=== PATIENT | female | born 1955 | race Caucasian/White ===

== ENCOUNTER 2023-06-03 07:50 | Outpatient (OUT) | payer OTHER, SELFPAY | END 2023-06-03 07:55 | disposition home or self-care (01) | PROVIDERS: Visit Provider Internal Medicine Cardiovascular Disease | DX: I11.9 Hypertensive heart disease without heart failure (principal) ==

== ENCOUNTER 2023-08-26 10:25 | Outpatient (OUT) | payer OTHER, SELFPAY ==
--- NOTE | 2023-08-26 10:56 | RESP.RT ---
see scanned chart
--- NOTE | 2023-08-26 12:36 | W.PM.PROCNOT ---
Date of procedure: 08/26/23 Procedure: 6-Minute Walk Test Indication: Chronic hypoxic respiratory failure Baseline data: Initial blood pressure: 130/80 Initial heart rate: 57 Initial oxygenation: SpO2 91% on room air at rest. Initial Carlos score: 1 MMRC: 3 Procedure: A 6-Minute Walk Test was initiated according to standard protocol. The patient ambulated for a total of 6 minutes. The patient desaturated to 87% on room air after ambulating only 30 seconds. O2 flow was eventually titrated up to 6L/min and despite this flow, SpO2 dropped to 83%. The maximum Carlos score was 7. Symptoms reported: Dyspnea. During recovery, blood pressure was 129/89 with a heart rate of 56. SpO2 was 100% on 6L/min, with Carlos score 2. Total number of stops: 5, due to dyspnea and need to titrate O2. Total distance walked was 61m, which was 62% of predicted walk distance. Impressions: Ambulatory desaturations requiring high O2 flows, and even then adequate oxygenation was not achieved on 6L/min with SpO2 dropping to 83%. No resting desaturations noted. Recommendations: No supplemental O2 required at rest. 6L/min O2 with ambulation, which does not appear sufficient with activity lasting over 2-3 minutes. Patient required reminding to breath through nose, not mouth, which may help some. Clinical correlation required. Surgeon: Erasto Heard
== END 2023-08-26 10:26 | disposition home or self-care (01) ==
LOC: CARD 10:25
PROVIDERS: Visit Provider Internal Medicine
DX: J96.11 Chronic respiratory failure with hypoxia (principal)
CPT/HCPCS: 94618

== ENCOUNTER 2024-01-07 19:19 | Outpatient (OUT) | payer OTHER, SELFPAY ==
--- OUTSIDE RECORDS SUMMARY | 2024-01-07 19:32 | XMS_ITS | CCD ---
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 Name Role Phone NON STAFF Primary Care Provider UnavailDO Jay Longoria Admit Provider [phone] MD Rafat Vences Attending Provider JESSY PATEL Primary Care Physician DEEPA COTA Attending Unavailable DEEPA COTA Consulting Unavailable DEEPA COTA Admitting Unavailable [facility] Primary Care Unavailable DR RAMY MIXON Consulting Unavailable LIS QUINONEZ Attending Unavailable MATTHEWE ., LIS M Admitting Unavailable [facility] Primary Care Unavailable LUE ., LIS M Consulting Unavailable MARIA ESTHER, RILEY Attending Unavailable RILEY MAYO Consulting Unavailable RILEY MAYO Admitting Unavailable RUMSCHLAG, JESSY Primary Care Unavailable Lue, Lis M. Attending Unavailable RUMSCHLAG, JESSY Primary Care Unavailable Lue, Lis M. Attending Unavailable RUMSCHLAG, JESSY Primary Care Unavailable Lue, Lis M. Attending Unavailable RUMSCHLAG, JESSY Primary Care Unavailable RUMSCHLAG, JESSY Primary Care Unavailable Matthewe, Lis MCody Attending Unavailable Rafat Vences Attending Unavailable NON STAFF Primary Care Unavailable Jay Loera Admitting UnavailCONNIE Herrera Attending Unavailable LATRELL ARIZA Attending Unavailable CONNIE DESIR Attending Unavailable LATRELL ARIZA Attending Unavailable MATHIEU KENT Referring Unavailable [facility] Primary Care Unava ilable MATHIEU KENT Referring Unavailable SERVICES, [facility] Unava ilable SERVICES, [facility] Unava ilable DEEPA RIVER Attending Unavailable LARON NEVAREZ Consulting Unavailable NOLVIA GARCIA Admitting Unavailable PRIETO NG Attending Unavailable PRIETO NG Referring Unavailable SERVICES, [facility] Unava ilable PRIETO NG Attending Unavailable PRIETO NG Referring Unavailable SERVICES, [facility] Unava ilable JESSY PATEL Referring Unavailable SERVICES, [facility] Unava ilable SERVICES, [facility] Unava ilable ROSALINO MARRERO Attending Unavailable DIANASHELIA Hoffmann Admitting Unavailable JANESROSALINO HOPE Attending Unavailable ROSALINO MARRERO Referring Unavailable SERVICES, [facility] Unava ilable JACQUELIN GOLDMAN Attending Unavailable JACQUELIN GOLDMAN Referring Unavailable SERVICES, [facility] Unava ilable Services, [facility] Provider Allergies Allergy Classification Reported Allergen(s) Allergy Type Date of Onset Reaction(s) Facility (7 sources) Meperidine; Translations: [Meperidine] Drug Allergy 7 [facility] (disorder) [facility] (5 sources) Iodinated Contrast Media; Translations: [Iodinated Contrast Media] Allergy to substance 7 [facility] (3 sources) Contrast media; Translations: [Contrast Dye] Drug allergy Weal (disorder) [facility] (1 source) Meperidine; Translations: [Demerol] Drug Allergy [facility] Repository (3 sources) Contrast media; Translations: [DYE] Propensity to adverse reactions to drug (disorder) 8 [facility] Repository (2 sources) Meperidine; Translations: [MEPERIDINE HCL] Drug Allergy 8 [facility] Repository Medications Current Medications Medication Drug Class(es) Dates Sig (Normalized) Sig (Original) Albuterol (5 sources) beta2-Adrenergic Agonist Start: 06-06-2022 albuterol Refills(s) 0 Start Date: 8/10/22 Status: Ordered Start: 01-19-2022 take 90 ug by inhala tion every four hours Albuterol Sulfate Active 90 MCG INHALATION Q4H January 19, 2022 4:52am take 1.25 mg by inha lation every six hours as needed for wheezing albuterol (ACCUNEB) 1.25 mg/3 mL nebulizer solution Inhale 3 mL (1.25 mg total) by nebulization every 6 (six) hours as needed for wheezing. 0 Active take 2 puff(s) by in halation every six hours as needed for wheezing albuterol (PROVENTIL HFA;VENTOLIN HFA) 90 mcg/actuation inhaler Inhale 2 puffs every 6 (six) hours as needed for wheezing. 0 Active apixaban 5 mg oral tablet (1 source) Factor Xa Inhibitor Start: 02-04-2023 take 1 tablet by mouth in the morning, then take 1 tablet by mouth at bedtime apixaban (ELIQUIS) 5 mg tablet Take 1 tablet (5 mg total) by mouth in the morning and 1 tablet (5 mg total) before bedtime. 0 02/04/2023 Active 60 actuat budesonide 0.08 mg/actuat / formoterol fumarate 0.0045 mg/actuat metered dose inhaler (1 source) Corticosteroid, beta2-Adrenergic Agonist Start: 02-02-2021 SYMBICORT 80-4.5 mcg/actuation inhaler Inhale 2 puffs as needed. 0 02/02/2021 Active calcium carbonate 1250 mg / cholecalciferol 200 unt oral tablet (1 source) Vitamin D take 1 tablet by mouth once in the morning calcium carbonate-vitam in D3 (OSCAL 500 + D) 500 mg(1,250mg) -200 units per tablet Take 1 tablet by mouth in the morning and 1 tablet in the evening. Take with meals. 0 Active Calcium Carbonate / vitamin D3 (1 source) Start: 01-19-2022 Calcium Carbonate-Vitam in D3 Active TAB TABLET January 19, 2022 4:52am cephalexin 500 mg oral capsule (1 source) Cephalosporin Antibacterial Start: 06-06-2022 Keflex 500 mg Cap See Instructions, Take 1 tablet 1 day prior to procedure, and then 1 tab day of procedure after procedure, # 2 tab(s), Refills(s) 0, Pharmacy: [facility] [id number], 153, cm, 06/06/22 9:28:00 EDT, Height/Length Dosing, 157, kg, 06/06/22 9:28:00 EDT... Start Date: 06/06/22 Status: Ordered Furosemide (5 sources) Loop Diuretic Start: 06-06-2022 furosemide Daily, Refills(s) 0 Start Date: 06/06/22 Status: Ordered Start: 01-20-2022 take 1 tablet by david th twice daily Furosemide (Lasix) 40 mg tablet Active 40 MG PO Twice daily 60 January 20, 2022 2:35pm Start: 01-19-2022 End: 01-20-2022 take 40 mg by mouth once daily Furosemide Discontinued 40 MG PO Daily January 19, 2022 4:52am January 20, 2022 2:36pm Start: 10-19-2021 take 1 tablet by david th once daily furosemide (LASIX) 40 mg tablet Indications: Pulmonary hypertension ([facility]) Take 1 tablet (40 mg total) by mouth daily. 90 tablet 3 10/19/2021 Active Lisinopril (4 sources) Angiotensin Converting Enzyme Inhibitor Start: 06-06-2022 lisinopril Oral, Carmen ly, Refills(s) 0 Start Date: 06/06/22 Status: Ordered Start: 03-20-2021 take 2.5 mg by mouth once kurt y Lisinopril Active 2.5 MG PO Daily January 19, 2022 4:52am metFORMIN (4 sources) Biguanide Start: 06-06-2022 metformin Oral , Refills(s) 0 Start Date: 06/06/22 Status: Ordered Start: 01-19-2022 take 1000 mg by mout h twice daily at mealtime Metformin Active 1000 MG PO Twice daily with meals January 19, 2022 4:52am metFORMIN (GLUCO PHAGE) 850 mg tablet Take 1,000 mg by mouth in the morning and 1,000 mg in the evening. Take with meals. 0 Active 24 hr metoprolol succinate 50 mg extended release oral tablet (4 sources) beta-Adrenergic Jessica Start: 02-19-2023 take 1 tablet by mouth once daily in the morning, then take 1 tablet by mouth once daily at bedtime metoprolol succinate XL (TOPROL XL) 50 mg 24 hr tablet Indications: Essential hypertension , Paroxysmal atrial fibrillation (CMS-HCC) , Localized edema , Shortness of breath TAKE ONE TABLET BY MOUTH EVERY MORNING AND TAKE ONE TABLET BY MOUTH EVERY NIGHT BEFORE BEDTIME 60 tablet 1 02/19/2023 Active Start: 06-06-2022 metoprolol Ref ills(s) 0 Start Date: 06/06/22 Status: Ordered Start: 01-19-2022 take 50 mg by mouth once daily Metoprolol Succinate Active 50 MG PO Daily January 19, 2022 4:52am nystatin 100 unt/mg topical powder (1 source) Polyene Antifungal Start: 05-18-2022 nystatin (MYCOSTATIN) powder Apply 1 application topically in the morning and 1 application before bedtime. Apply under breasts. 30 g 0 05/18/2022 Active ondansetron 4 mg disintegrating oral tablet (1 source) Serotonin-3 Receptor Antagonist Start: 12-07-2022 take 1 tablet by mouth every eight hours as needed for nausea ondansetron ODT (ZOFRAN ODT) 4 mg disintegrating tablet Dissolve 1 tablet (4 mg total) on tongue every 8 (eight) hours as needed for nausea for up to 10 doses. 10 tablet 0 12/07/2022 Active Xarelto (3 sources) Factor Xa Inhibitor Start: 06-06-2022 Xarelto Oral, Refills(s) 0 Start Date: 06/06/22 Status: Ordered Start: 01-19-2022 take 1 tablet by david th at bedtime Rivaroxaban (Xarelto) 20 mg tablet Active 20 MG PO Bedtime January 19, 2022 4:52am Spironolactone (4 sources) Aldosterone Antagonist Start: 06-06-2022 spirono lactone Oral, Refills(s) 0 Start Date: 06/06/22 Status: Ordered Start: 03-28-2022 take 1 tablet by david th in the morning spironolactone (ALDACTONE) 25 mg tablet Take 1 tablet (25 mg total) by mouth in the morning. 0 03/28/2022 Active Start: 01-19-2022 take 25 mg by mouth once daily Spironolactone Active 25 MG PO Daily January 19, 2022 4:52am triamcinolone acetonide 0.25 mg/ml topical cream (1 source) Corticosteroid triamcinolone (K ENALOG) 0.025 % cream Apply 1 Application topically 2 (two) times a day as needed for irritation. psoriasis 0 Active Problems Active Problems Problem Classification Problem Date Documented Da te Episodic/Chronic Asthma (1 source) Asthma; Translations: [Unspecified asthma, uncomplicated] 06-03-2018 Chronic Cancer of cervix (1 source) Malignant tumor of cervix; Translations: [Malignant neoplasm of cervix uteri, unspecified] 06-03-2018 Chronic Cancer of cervix (1 source) History of malignant neoplasm of cervix; Translations: [Personal history of malignant neoplasm of cervix uteri] 06-03-2018 Episodic Cardiac dysrhythmias (9 sources) Paroxysmal atrial fibrillation; Translations: [Unspecified atrial fibrillation] Onset: 06-04-2018 Chronic Chronic obstructive pulmonary disease and bronchiectasis (4 sources) Chronic obstructive pulmonary disease, unspecified; Translations: [Chronic obstructive pulmonary disease with (acute) exacerbation] Onset: 01-18-2022 12-12-2023 Chronic Conditions associated with dizziness or vertigo (3 sources) Dizziness and giddiness; Translations: [Dizziness] Onset: 12-12-2023 12-12-2023 Episodic Congestive heart failure; nonhypertensive (6 sources) Acute on chronic diastolic heart failure; Translations: [Acute on chronic diastolic (congestive) heart failure] Onset: 01-18-2022 01-19-2022 Chronic Diabetes mellitus without complication (1 source) Diabetes mellitus; Translations: [Type 2 diabetes mellitus without complications] 11-07-2023 Chronic Essential hypertension (3 sources) Essential (primary) hypertension; Translations: [Essential hypertension] Onset: 10-24-2022 Chronic Genitourinary symptoms and ill-defined conditions (4 sources) Stress incontinence (female) (male); Translations: [Genuine stress incontinence] Onset: 06-06-2022 Chronic Genitourinary symptoms and ill-defined conditions (7 sources) Blood in urine; Translations: [Gross hematuria] Onset: 06-06-2022 Episodic Hypertension with complications and secondary hypertension (2 sources) Hypertensive heart disease without heart failure; Translations: [Hypertensive heart disease without heart failure] Onset: 05-21-2023 Chronic Nonmalignant breast conditions (1 source) Mastodynia; Translations: [Mastodynia] Onset: 12-31-2023 Episodic Other aftercare (1 source) Long-term current use of anticoagulant; Translations: [residential (current) use of anticoagulants] Onset: 06-06-2022 Episodic Other inflammatory condition of skin (1 source) Psoriasis; Translations: [Psoriasis, unspecified] 06-03-2018 Chronic Other lower respiratory disease (1 source) Shortness of breath; Translations: [Shortness of breath] Onset: 11-07-2023 Episodic Other lower respiratory disease (1 source) Shortness of breath Onset: 11-07-2023 Episodic Other nutritional; endocrine; and metabolic disorders (1 source) Body mass index 40+ - severely obese; Translations: [Morbid (severe) obesity due to excess calories] 01-19-2022 Chronic Other nutritional; endocrine; and metabolic disorders (2 sources) Morbid (severe) obesity due to excess calories; Translations: [Morbid obesity] Onset: 01-18-2022 Chronic Other nutritional; endocrine; and metabolic disorders (1 source) Body mass index (BMI) 60.0-69.9, adult; Translations: [Body mass index [BMI] 60.0-69.9, adult] Onset: 01-18-2022 Chronic Other nutritional; endocrine; and metabolic disorders (1 source) Severe obesity; Translations: [Morbid (severe) obesity due to excess calories] Onset: 02-03-2021 06-20-2021 Chronic Other nutritional; endocrine; and metabolic disorders (1 source) Obesity caused by energy imbalance; Translations: [Other obesity due to excess calories] Onset: 03-20-2021 03-20-2021 Chronic Other nutritional; endocrine; and metabolic disorders (1 source) Hypomagnesemia; Translations: [Hypomagnesemia] Onset: 03-19-2023 03-19-2023 Chronic Other screening for suspected conditions (not mental disorders or infectious disease) (1 source) Encounter for screening for cardiovascular disorders; Translations: [Encounter for screening for cardiovascular disorders] Onset: 11-19-2023 Episodic Respiratory failure; insufficiency; arrest (adult) (2 sources) Acute and chronic respiratory failure with hypercapnia; Translations: [Acute on chronic hypercapnic respiratory failure] Onset: 11-07-2023 11-07-2023 Chronic Respiratory failure; insufficiency; arrest (adult) (2 sources) Acute hypoxemic respiratory failure; Translations: [Acute respiratory failure with hypoxia] 03-25-2022 Episodic Respiratory failure; insufficiency; arrest (adult) (1 source) Respiratory failure; insufficiency; arrest (adult); Translations: [Acute respiratory failure with hypoxia] Onset: 01-18-2022 Screening and history of mental health and substance abuse codes (2 sources) H/O: Disorder; Translations: [Personal history of nicotine dependence] Onset: 06-06-2022 Episodic Syncope (5 sources) Syncope and collapse; Translations: [Syncope and collapse] Onset: 03-18-2023 Episodic Unclassified (1 source) CONTACT W/AND (SUSP) EXPOS COVID-19; Translations: [CONTACT W/AND (SUSP) EXPOS COVID-19] Onset: 08-26-2022 Unclassified (1 source) EMS Onset: 11-07-2023 Unclassified (1 source) Severe obesity; Translations: [Class 3 obesity due to excess calories in adult] Onset: 06-04-2018 06-04-2018 Past or Other Problems Problem Classification Problem Date Documented Date Episodic/Chronic Nonspecific chest pain (6 sources) Chest pain, unspecified; Translations: [Other chest pain] Onset: 05-03-2023 Resolved: 06-04-2018 Episodic Other lower respiratory disease (1 source) Dyspnea; Translations: [Dyspnea, unspecified] Onset: 06-20-2021 05-16-2022 Episodic Other lower respiratory disease (1 source) Hypercapnia; Translations: [Other abnormalities of breathing] Onset: 05-16-2022 05-16-2022 Episodic Residual codes; unclassified (1 source) Localized edema; Translations: [Localized edema] Onset: 04-24-2021 04-24-2021 Episodic Results Test Name Value Interpretation Reference Range Facility MAMM DIAGNOSTIC BILATERAL W CADon 12-31-2023 MAMM DIAGNOSTIC BILATERAL W CAD MAMM DIAGNOSTIC BILATERAL W CAD EXAM: MAMM DIAGNOSTIC BILATERAL W CAD, 12/31/2023 8:59 AM CLINICAL INDICATIONS: Breast pain, right, j COMPARISON: 12/16/2021 TECHNIQUE: CC and MLO views of both breasts were performed with multiple images. Tomosynthesis was performed. CAD was utilized. FINDINGS: The breasts are almost entirely fatty. Irregularity in the right breast is compatible scarring related to the previous excisional biopsy. Patient has symptoms in this area with no change or focal abnormality evident. There are no suspicious masses, calcifications, or areas of architectural distortions. There are benign calcifications in both breasts. IMPRESSION: No mammographic evidence of malignancy. BI-RADS: BI-RADS 2 - Benign Recommendation: Routine screening mammogram in 1 year clinical follow-up of the patient's symptoms is recommended. Patient was given the results before leaving the department. Finalized by Bassam Correa MD on 12/31/2023 9:26 AM 2 a MAMM 1 YR Normal [facility] ARTERIAL BLOOD GASon 024 DANICA'S TEST Pass Normal [facility] Comment on above: Performed By: #### C BCA, 73609-9, CMP, 82826-6, 90496-5, 18767-2 #### [facility] ([id number]) [address] [place] [address] Base excess Calc (Bld) [Moles/Vol] 5.0 mmol/L High 0.0-2.0 [facility] Comment on above: Performed By: #### C BCA, 20258-4, CMP, 86839-5, 97840-8, 52899-5 #### [facility] ([id number]) [address] [place] [address] 64017 Body temperature 98.6 [degF] Normal 37.0 [facility] Comment on above: Performed By: #### C BCA, 28832-5, CMP, 13158-9, 69569-8, 64308-2 #### [facility] ([id number]) [address] [place] [address]16 HCO3 (Bld) [Moles/Vol] 30.8 mmol/L High 22-26 P [facility] Comment on above: Performed By: #### C BCA, 50390-6, CMP, 58226-7, 86352-2, 20527-6 #### [facility] ([id number]) [address] [place] [address]93 INSP. O2 CONC. 28 % Normal [facility] Comment on above: Performed By: #### C BCA, 54253-0, CMP, 47752-2, 65021-6, 36564-6 #### [facility] ([id number]) [address] [place] [address] 62865 Oxygen (Bld) [Partial pressure] 89 mm[Hg] Normal 80-100 [facility] Comment on above: Performed By: #### C BCA, 50076-9, CMP, 05361-6, 91131-7, 35484-3 #### [facility] ([id number]) [address] [place] [address] 81972 Oxygen saturation in Blood 97.0 % Normal >90 [facility] Comment on above: Performed By: #### C BCA, 57546-5, CMP, 77948-1, 54816-9, 55928-3 #### [facility] ([id number]) [address] [place] [address] [place] [address] OXYGEN SOURCE NC Normal [facility] Comment on above: Performed By: #### C BCA, 55604-9, CMP, 65895-0, 76325-5, 90185-2 #### [facility] ([id number]) [address] [place] [address] 87655 PCO2 47.4 MMHG High 35-45 [facility] Comment on above: Performed By: #### C BCA, 65316-2, CMP, 51757-1, 08305-0, 40173-3 #### [facility] ([id number]) [address] [place] [address] 25151 pH (Bld) 7.421 [pH] Normal 7.350-7.450 [facility] Comment on above: Performed By: #### C BCA, 12057-6, CMP, 88241-3, 24431-9, 14134-8 #### [facility] ([id number]) [address] [place] [address] [place] [address] SAMPLE SITE RRad Normal [facility] Comment on above: Performed By: #### C BCA, 10078-7, CMP, 71548-3, 87503-9, 96342-2 #### [facility] ([id number]) [address] [place] [address] 23090 SAMPLE TYPE ARTERIAL [facility] Comment on above: Performed By: #### C BCA, 20049-4, CMP, 37799-9, 39100-4, 48062-9 #### [facility] ([id number]) [address] [place] [address] 24500 BASIC METABOLIC PANLon 12-12 Anion gap [Moles/Vol] 9 mmol/L Normal -15 [facility] Comment on above: Performed By: #### C BCA, 19432-0, CMP, 02351-3, 00731-4, 11362-9 #### [facility] ([id number]) [address] [place] [address] [place] [address] Calcium [Mass/Vol] 8.8 mg/dL Normal 8.5-10.5 [facility] Comment on above: Performed By: #### C BCA, 42041-8, CMP, 23290-1, 93270-5, 11840-8 #### [facility] ([id number]) [address] [place] [address] 92657 Chloride [Moles/Vol] 94 mmol/L Low 98-109 [facility] Comment on above: Performed By: #### C BCA, 43754-6, CMP, 29199-7, 95929-5, 16979-6 #### [facility] ([id number]) [address] [place] [address] [place] [address] CO2 [Moles/Vol] 34 mmol/L High 22-32 [facility] Comment on above: Performed By: #### C BCA, 68845-7, CMP, 65817-3, 45617-6, 12479-1 #### [facility] ([id number]) [address] [place] [address] 40568 Creatinine [Mass/Vol] 0.72 mg/dL Normal 0.40-1.00 [facility] Comment on above: Result Comment: METH OD TRACEABLE TO IDMS STANDARD Performed By: #### C BCA, 59273-6, CMP, 41568-6, 74616-0, 98163-4 #### [facility] ([id number]) [address] [place] [address] 18242 eGFR (CKD-EPI) NON-RACE DEPENDENT >90 Normal >59 [facility] Comment on above: Result Comment: Reported eGFR is based on the CKD-EPI 2020 equation that does not use a race coefficient. Performed By: #### C BCA, 04900-4, CMP, 65857-9, 93411-8, 93286-7 #### [facility] ([id number]) [address] [place] [address] 97290 Glucose [Mass/Vol] 115 mg/dL High 65-99 [facility] Comment on above: Performed By: #### C BCA, 07357-0, CMP, 99922-8, 19487-5, 06250-2 #### [facility] ([id number]) [address] [place] [address] 03886 Potassium [Moles/Vol] 3.6 mmol/L Normal 3.5-5.0 [facility] Comment on above: Performed By: #### C BCA, 75233-5, CMP, 39076-2, 40547-6, 98193-9 #### [facility] ([id number]) [address] [place] [address] 72140 Sodium [Moles/Vol] 137 mmol/L Normal 134-146 [facility] Comment on above: Performed By: #### C BCA, 13164-3, CMP, 34059-4, 86522-0, 25775-1 #### [facility] ([id number]) [address] [place] [address] 79048 Urea nitrogen [Mass/Vol] 18 mg/dL Normal 5-27 [facility] Comment on above: Performed By: #### C BCA, 57558-2, CMP, 11294-5, 24863-2, 03093-0 #### [facility] ([id number]) [address] [place] [address] 19084 Anion gap [Moles/Vol] 10 mmol/L Normal 5-15 [facility] Comment on above: Performed By: #### C BCA, 78590-2, CMP, 99519-3, 65539-2, 20801-6 #### [facility] ([id number]) [address] [place] [address] 78519 Calcium [Mass/Vol] 8.9 mg/dL Normal 8.5-10.5 [facility] Comment on above: Performed By: #### C BCA, 84118-3, CMP, 58609-1, 77705-9, 70503-2 #### [facility] ([id number]) [address] [place] [address] 45357 Chloride [Moles/Vol] 94 mmol/L Low 98-109 [facility] Comment on above: Performed By: #### C BCA, 79262-3, CMP, 69661-6, 27368-1, 11935-1 #### [facility] ([id number]) [address] [place] [address] 20732 CO2 [Moles/Vol] 31 mmol/L Normal 22-32 [facility] Comment on above: Performed By: #### C BCA, 44697-4, CMP, 44585-5, 38281-7, 43426-6 #### [facility] ([id number]) [address] [place] [address] 66385 Creatinine [Mass/Vol] 0.81 mg/dL Normal 0.40-1.00 [facility] Comment on above: Result Comment: METH OD TRACEABLE TO IDMS STANDARD Performed By: #### C BCA, 82184-6, CMP, 32385-0, 12970-0, 58708-0 #### [facility] ([id number]) [address] [place] [address] 76654 GFR/1.73 sq M.predicted among non-blacks MDRD (S/P/Bld) [Vol rate/Area] 79 mL/min/{1.73_m2} Normal >59 [facility] Comment on above: Result Comment: Reported eGFR is based on the CKD-EPI 2020 equation that does not use a race coefficient. Performed By: #### C BCA, 73101-5, CMP, 71875-3, 15111-8, 95612-2 #### [facility] ([id number]) [address] [place] [address] 33971 Glucose [Mass/Vol] 115 mg/dL High 65-99 [facility] Comment on above: Performed By: #### C BCA, 23147-4, CMP, 03282-3, 48390-8, 50901-8 #### [facility] ([id number]) [address] [place] [address] 58340 Potassium [Moles/Vol] 3.8 mmol/L Normal 3.5-5.0 [facility] Comment on above: Performed By: #### C BCA, 95058-0, CMP, 18795-8, 21032-4, 67953-2 #### [facility] [place] ([id number]) [address] [place] [address] 75926 Sodium [Moles/Vol] 135 mmol/L Normal 134-146 [facility] Comment on above: Performed By: #### C BCA, 01087-0, CMP, 66331-6, 14319-8, 42197-2 #### [facility] [place] ([id number]) [address] [place] [address] 85860 Urea nitrogen [Mass/Vol] 20 mg/dL Normal 5-27 [facility] Comment on above: Performed By: #### C BCA, 28844-3, CMP, 39156-0, 72388-4, 39387-0 #### [facility] [place] ([id number]) [address] [place] [address] 18857 CBC AND AUTO DIFFon 12-12-19 24 ABSOLUTE BASOPHIL 0.0 X10E9/L Normal 0.0-0.2 [facility] Comment on above: Performed By: #### C BCA, 13621-6, CMP, 88808-9, 89811-9, 53504-1 #### [facility] ([id number]) [address] [place] [address] 40812 ABSOLUTE NEUTROPHIL 4.3 X10E9/L Normal 1.5-6.6 [facility] Comment on above: Performed By: #### C BCA, 01626-9, CMP, 47961-0, 50851-1, 20388-6 #### [facility] ([id number]) [address] [place] [address] 66586 Basophils/100 WBC (Bld) 0.4 % Normal [facility] Comment on above: Performed By: #### C BCA, 98410-3, CMP, 88607-2, 88108-2, 24173-5 #### [facility] ([id number]) [address] [place] [address] 01686 Eosinophils (Bld) [#/Vol] 0.1 10*3/uL Normal 0.0-0.4 [facility] Comment on above: Performed By: #### C BCA, 86373-3, CMP, 16163-4, 98145-9, 36490-4 #### [facility] ([id number]) [address] [place] [address] 52085 Eosinophils/100 WBC (Bld) 1.9 % Normal [facility] Comment on above: Performed By: #### C BCA, 97815-3, CMP, 85375-3, 30986-1, 32328-2 #### [facility] ([id number]) [address] [place] [address] 88739 Erythrocyte distribution width (RBC) [Ratio] 16.3 % High 11.5-15.0 [facility] Comment on above: Performed By: #### Haroon BCA, 77696-9, CMP, 20981-0, 74051-1, 79307-0 #### [facility] ([id number]) [address] [place] [address] 72071 Hematocrit (Bld) [Volume fraction] 38.2 % Normal 35-47 [facility] Comment on above: Performed By: #### Haroon BCA, 77583-9, CMP, 84787-0, 71861-4, 94685-6 #### [facility] ([id number]) [address] [place] [address] 20292 Hemoglobin (Bld) [Mass/Vol] 12.4 g/dL Normal 11.7-15.5 [facility] Comment on above: Performed By: #### C BCA, 18003-2, CMP, 22398-2, 19202-6, 09932-5 #### [facility] ([id number]) [address] [place] [address] 83891 Lymphocytes (Bld) [#/Vol] 1.7 10*3/uL Normal 1.0-3.5 [facility] Comment on above: Performed By: #### Haroon BCA, 42938-3, CMP, 36385-9, 80759-8, 44951-9 #### [facility] ([id number]) [address] [place] [address] 16107 Lymphocytes/100 WBC (Bld) 26.1 % Normal [facility] Comment on above: Performed By: #### Haroon BCA, 08600-2, CMP, 87817-3, 61422-3, 97647-1 #### [facility] ([id number]) [address] [place] [address] 17376 MCH (RBC) [Entitic mass] 28.2 pg Normal 27-34 [facility] Comment on above: Performed By: #### Haroon BCA, 67202-3, CMP, 72377-7, 79034-4, 90939-5 #### [facility] [place] [place] ([id number]) [address] [place] [address] 82358 MCHC (RBC) [Mass/Vol] 32.5 g/dL Normal 32-36 [facility] Comment on above: Performed By: #### C BCA, 07494-8, CMP, 97700-0, 55980-4, 88083-0 #### [facility] ([id number]) [address] [place] [address] 15938 MCV (RBC) [Entitic vol] 87 fL Normal 80-100 [facility] Comment on above: Performed By: #### Haroon BCA, 38409-1, CMP, 92374-6, 16639-8, 16077-8 #### [facility] [place] [place] ([id number]) [address] [place] [address] 16000 Monocytes (Bld) [#/Vol] 0.5 10*3/uL Normal 0-0.9 [facility] Comment on above: Performed By: #### Haroon BCA, 49327-8, CMP, 53521-3, 28583-2, 97173-8 #### [facility] ([id number]) [address] [place] [address] 03423 Monocytes/100 WBC (Bld) 6.9 % Normal [facility] Comment on above: Performed By: #### Haroon BCA, 16925-0, CMP, 90176-7, 27822-4, 64946-7 #### [facility] ([id number]) [address] [place] [address] 14822 Neutrophils/100 WBC (Bld) 64.7 % Normal [facility] Comment on above: Performed By: #### C BCA, 88326-8, CMP, 07302-2, 77589-3, 21484-5 #### [facility] ([id number]) [address] [place] [address] 92315 Platelet mean volume (Bld) [Entitic vol] 9.5 fL Normal 7-12 [facility] Comment on above: Performed By: #### Haroon BCA, 46256-9, CMP, 28415-6, 53104-2, 37052-0 #### [facility] ([id number]) [address] [place] [address] 79635 Platelets (Bld) [#/Vol] 221 10*3/uL Normal 150-450 [facility] Comment on above: Performed By: #### Haroon BCA, 18269-5, CMP, 02352-4, 20386-8, 70782-8 #### [facility] ([id number]) [address] [place] [address] 58812 RBC COUNT 4.40 X10E12/L Normal 3.80-5.20 [facility] Comment on above: Performed By: #### Haroon BCA, 45917-7, CMP, 25854-3, 13917-8, 20921-2 #### [facility] ([id number]) [address] [place] [address] 26433 WBC (Bld) [#/Vol] 6.7 10*3/uL Normal 4.0-11.0 [facility] Comment on above: Performed By: #### Haroon BCA, 82304-1, CMP, 83425-1, 13621-6, 27969-4 #### [facility] ([id number]) [address] [place] [address] 77846 COMPLETE BLOOD COUNTon 02-15 -2024 Erythrocyte distribution width (RBC) [Ratio] 16.0 % High 11.5-15.0 [facility] Comment on above: Performed By: #### C BCA, 84110-9, CMP, 47939-5, 74630-6, 81561-7 #### [facility] ([id number]) [address] [place] [address] 24384 Hematocrit (Bld) [Volume fraction] 35.8 % Normal 35-47 [facility] Comment on above: Performed By: #### C BCA, 92311-6, CMP, 56241-1, 38439-3, 11971-4 #### [facility] [place] [place] ([id number]) [address] [place] [address] 01786 Hemoglobin (Bld) [Mass/Vol] 11.7 g/dL Normal 11.7-15.5 [facility] Comment on above: Performed By: #### C JAMESON, 12722-9, CMP, 19564-3, 47674-1, 15370-5 #### [facility] ([id number]) [address] [place] [address] 29415 MCH (RBC) [Entitic mass] 28.2 pg Normal 27-34 [facility] Comment on above: Performed By: #### C JAMESON, 26622-8, CMP, 03496-4, 33927-9, 13965-2 #### [facility] ([id number]) [address] [place] [address] 80036 MCHC (RBC) [Mass/Vol] 32.6 g/dL Normal 32-36 [facility] Comment on above: Performed By: #### C BCA, 74705-8, CMP, 57182-9, 43923-0, 72264-3 #### [facility] ([id number]) [address] [place] [address] 64562 MCV (RBC) [Entitic vol] 87 fL Normal 80-100 [facility] Comment on above: Performed By: #### C BCA, 25965-1, CMP, 43831-7, 51663-0, 92697-7 #### [facility] ([id number]) [address] [place] [address] 92439 Platelet mean volume (Bld) [Entitic vol] 9.0 fL Normal 7-12 [facility] Comment on above: Performed By: #### Haroon BCA, 30702-4, CMP, 19692-5, 95940-7, 40901-9 #### [facility] [place] ([id number]) [address] [place] [address] 59945 Platelets (Bld) [#/Vol] 194 10*3/uL Normal 150-450 [facility] Comment on above: Performed By: #### Haroon BCA, 61643-7, CMP, 41238-3, 41898-5, 66018-4 #### [facility] ([id number]) [address] [place] [address] 19872 RBC COUNT 4.13 X10E12/L Normal 3.80-5.20 [facility] Comment on above: Performed By: #### Haroon BCA, 20891-0, CMP, 16485-3, 71009-6, 74318-6 #### [facility] ([id number]) [address] [place] [address] 45079 WBC (Bld) [#/Vol] 6.3 10*3/uL Normal 4.0-11.0 [facility] Comment on above: Performed By: #### Haroon BCA, 09161-3, CMP, 63261-0, 83227-6, 23453-2 #### [facility] ([id number]) [address] [place] [address] 93966 Glucose Glucometer (BldC) [M ass/Vol]on 12-12-2023 Glucose [Mass/Vol] 171 mg/dL High 65-99 [facility] Glucose [Mass/Vol] 121 mg/dL High 65-99 [facility] Glucose [Mass/Vol] 111 mg/dL High 65-99 [facility] MAGNESIUMon 12-12-2023 Magnesium [Mass/Vol] 2.0 mg/dL Normal 1.8-2.6 [facility] Comment on above: Performed By: #### C BCA, 96103-4, CMP, 97054-7, 57907-2, 59242-5 #### [facility] [place] ([id number]) [address] [place] [address] 34589 Magnesium [Mass/Vol] 1.8 mg/dL Normal 1.8-2.6 [facility] Comment on above: Performed By: #### C BCA, 09267-0, CMP, 43612-8, 43735-8, 84543-2 #### [facility] [place] ([id number]) [address] [place] [address] 17708 Magnesium [Mass/Vol] 1.8 mg/dL Normal 1.8-2.6 [facility] Comment on above: Performed By: #### C BCA, 55856-0, CMP, 03993-2, 33999-4, 07737-6 #### [facility] [place] ([id number]) [address] [place] [address] 82966 Natriuretic peptide B [Mass/ Vol]on 12-12-2023 Natriuretic peptide B (Bld) [Mass/Vol] 23 pg/mL Normal <100.0 [facility] Comment on above: Performed By: #### C BCA, 53749-2, CMP, 09330-6, 64436-0, 51262-3 #### [facility] [place] ([id number]) [address] [place] [address] 52986 POTASSIUMon 12-12-2023 Potassium [Moles/Vol] 4.0 mmol/L Normal 3.5-5.0 [facility] Comment on above: Performed By: #### C BCA, 26745-2, CMP, 41312-7, 33680-7, 99889-8 #### [facility] ([id number]) [address] [place] [address] PROTIME AND INRon 12-12-2023 INR Coag (PPP) [Relative time] 1.1 {INR} Normal 0.8-1.1 [facility] Comment on above: Performed By: #### C BCA, 01483-8, CMP, 86676-2, 81731-7, 88195-3 #### [facility] ([id number]) [address] [place] [address] PT Coag (PPP) [Time] 12.9 s Normal 9.8-13.2 [facility] Comment on above: Result Comment: NEW REFERENCE RANGE Performed By: #### C BCA, 81912-1, CMP, 70985-3, 16585-8, 43448-1 #### [facility] [place] ([id number]) [address] [place] [address] 62297 SARS/FLU A+B/RSV by NAAT/Mol ecularon 12-12-2023 SARS/FLU A+B/RSV by NAAT/Molecular FLU A PCR Negative (qualifier value) FLU B PCR Negative (qualifier value) RSV by PCR Negative (qualifier value) SARS CoV 2 Not detected (qualifier value) NOTE The Xpert Xpress SARS-CoV-2/Flu/RSV Plus test is a rapid, multiplexed real-time RT-PCR test intended for the simultaneous qualitative detection and differentiation of SARS-CoV-2, influenza A, influenza B and respiratory syncytial virus (RSV) viral RNA from individuals suspected of respiratory viral infection consistent with COVID-19 by their healthcare provider. This test has not been validated in asymptomatic patients. The Xpert Xpress SARS-CoV-2 test is intended for use by qualified and trained operators who are performing tests using either Sencera DX or JANZZ systems and is limited to laboratories that meet the CLIA requirements to perform high and moderate complexity tests. The Xpert Xpress SARS-CoV-2/Flu/RSV Plus is only for use under the Food and Drug Administration's Emergency Use Authorization. Results are for the simultaneous detection and differentiation of SARS-CoV-2, influenza A, influenza B and RSV nucleic acids in clinical specimens. SARS-CoV-2, influenza A, influenza B and RSV RNA identified by this test are generally detectable in upper respiratory samples during the acute phase of infection. Positive results are indicative of the presence of the identified virus, but do not rule out bacterial infection or co-infection with other pathogens not detected by this test. Clinical correlation with patient history and other diagnostic information is necessary to determine patient infection status. The agent detected may not be the definite cause of disease. Negative results do not preclude SARS-CoV-2, influenza A, influenza B and RSV infection and should not be used as the sole basis for treatment or other patient management decisions. Negative results must be combined with clinical observations, patient history and epidemiological information. An Invalid result may occur with specimen-associated inhibition unable to be resolved with specimen repeat. Fact Sheet for Healthcare Providers: https://www.fda.gov/m edia/766641/download Fact Sheet for Patients: https://www.fda.gov/m edia/043790/download Normal [facility] Comment on above: Performed By: #### C BCA, 33298-9, CMP, 45676-0, 49349-4, 54884-7 #### [facility] ([id number]) [address] [place] [address] 22455 TROPONIN Ion 12-12-2023 Troponin I.cardiac [Mass/Vol] 0.01 ng/mL Normal 0.00-0.04 [facility] Comment on above: Performed By: #### C BCA, 84886-5, CMP, 43679-6, 21581-4, 12361-0 #### [facility] ([id number]) [address] [place] [address] 84278 XR CHEST 1 VWon 12-12-2023 XR CHEST 1 VW XR CHEST 1 VW Single view chest History:Near-syncope Difficulty breathing, shortness of breath Comparison: 11/07/2023 Findings: Single portable view of the chest. Eventration of the bilateral hemidiaphragms. There is no focal opacity, effusion or pneumothorax. Cardiomediastinal silhouette is within normal limits. Evaluation is somewhat apical lordotic in positioning. Impression: No definitive acute cardiopulmonary process within the limitations of this examination. Finalized by Rex Veliz MD on 12/11/2023 10:54 PM Normal [facility] aPTT Coag (PPP) [Time]on aPTT Coag (Bld) [Time] 45 s High 26-37 Pr [facility] Comment on above: Result Comment: NEW REFERENCE RANGE Performed By: #### C BCA, 42137-4, CMP, 51439-6, 46549-1, 40865-8 #### [facility] ([id number]) [address] [place] [address] 73943 Office Visiton 12-06-2023 Follow-up visit [id number] Diana Oliver 1955 F Date Provider Department Center 12/06/2023 3848-LATRELL ARIZA [facility] Family History Problem Relation Age of Onset Coronary artery disease Father Atrial fibrillation Sister Family Status - Relation Status Age at Father Sister Level of Service:04395 AL OFFICE/OUTPATIENT ESTABLISHED MOD MDM 30 MIN Normal [facility] COMPREHENSIVE METABOLIC PANE Samuel 11-19-2023 Albumin [Mass/Vol] 4.3 g/dL Normal 3.2-5.3 [facility] Comment on above: Performed By: #### C BCA, 79616-5, CMP, 85385-5, 11356-1, 69406-6 #### [facility] ([id number]) [address] [place] [address] 05346 ALP [Catalytic activity/Vol] 42 U/L Normal 39-130 [facility] Comment on above: Performed By: #### C BCA, 01308-0, CMP, 43523-2, 35991-4, 53776-7 #### [facility] ([id number]) [address] [place] [address] 14233 ALT [Catalytic activity/Vol] 18 U/L Normal 0-31 [facility] Comment on above: Performed By: #### C BCA, 74256-4, CMP, 47347-3, 37286-2, 50449-1 #### [facility] ([id number]) [address] [place] [address] 55598 Anion gap [Moles/Vol] 10 mmol/L Normal 5-15 [facility] Comment on above: Performed By: #### C BCA, 20222-3, CMP, 95825-3, 15620-1, 76997-5 #### [facility] ([id number]) [address] [place] [address] 97059 AST [Catalytic activity/Vol] 17 U/L Normal 0-41 [facility] Comment on above: Performed By: #### C BCA, 32356-6, CMP, 64671-8, 66693-3, 50047-3 #### [facility] ([id number]) [address] [place] [address] 46962 Bilirubin [Mass/Vol] 0.5 mg/dL Normal 0.3-1.2 [facility] Comment on above: Performed By: #### C BCA, 95161-3, CMP, 25146-1, 58817-1, 39048-9 #### [facility] ([id number]) [address] [place] [address] 63663 Calcium [Mass/Vol] 9.2 mg/dL Normal 8.5-10.5 [facility] Comment on above: Performed By: #### C BCA, 13372-6, CMP, 67411-0, 47621-6, 72946-1 #### [facility] ([id number]) [address] [place] [address] 91529 Chloride [Moles/Vol] 97 mmol/L Low 98-109 [facility] Comment on above: Performed By: #### C BCA, 77645-2, CMP, 47920-7, 18957-2, 12472-3 #### [facility] ([id number]) [address] [place] [address] 98466 CO2 [Moles/Vol] 35 mmol/L High 22-32 [facility] Comment on above: Performed By: #### C BCA, 89184-8, CMP, 80801-4, 23141-5, 08715-3 #### [facility] ([id number]) [address] [place] [address] 52965 Creatinine [Mass/Vol] 0.86 mg/dL Normal 0.40-1.00 [facility] Comment on above: Result Comment: METH OD TRACEABLE TO IDMS STANDARD Performed By: #### C BCA, 84184-9, CMP, 40085-4, 30485-9, 13792-4 #### [facility] ([id number]) [address] [place] [address] 90479 GFR/1.73 sq M.predicted among non-blacks MDRD (S/P/Bld) [Vol rate/Area] 74 mL/min/{1.73_m2} Normal >59 [facility] Comment on above: Result Comment: Reported eGFR is based on the CKD-EPI 2020 equation that does not use a race coefficient. Performed By: #### C BCA, 45315-8, CMP, 99933-8, 34738-1, 39498-3 #### [facility] ([id number]) [address] [place] [address] 62941 Glucose [Mass/Vol] 103 mg/dL High 65-99 [facility] Comment on above: Performed By: #### C BCA, 94340-2, CMP, 42293-5, 56525-1, 52001-8 #### [facility] ([id number]) [address] [place] [address] 12235 Potassium [Moles/Vol] 4.1 mmol/L Normal 3.5-5.0 [facility] Comment on above: Performed By: #### C BCA, 64535-1, CMP, 66707-0, 20764-3, 96807-3 #### [facility] ([id number]) [address] [place] [address] 85541 Protein [Mass/Vol] 7.1 g/dL Normal 6.0-8.0 [facility] Comment on above: Performed By: #### C BCA, 82105-3, CMP, 68478-6, 47652-1, 43483-5 #### [facility] ([id number]) [address] [place] [address] 96078 Sodium [Moles/Vol] 142 mmol/L Normal 134-146 [facility] Comment on above: Performed By: #### C BCA, 53044-2, CMP, 59080-5, 98151-6, 65226-2 #### [facility] ([id number]) [address] [place] [address] 34284 Urea nitrogen [Mass/Vol] 30 mg/dL High 5-27 [facility] Comment on above: Performed By: #### Haroon BCA, 84051-4, CMP, 95075-0, 68600-9, 98899-5 #### [facility] ([id number]) [address] [place] [address] 19804 Lipid 1996 panelon 4 Cholesterol [Mass/Vol] 149 mg/dL Low 150-200 [facility] Comment on above: Performed By: #### Haroon BCA, 73969-9, CMP, 42930-8, 45480-3, 12986-9 #### [facility] ([id number]) [address] [place] [address] 28427 Cholesterol in HDL [Mass/Vol] 55 mg/dL Normal >39 [facility] Comment on above: Result Comment: HDL <40 mg/dL - High Risk HDL > or = 40mg/dL- Desirable HDL >60 mg/dL - Negative Risk Performed By: #### Haroon BCA, 83266-0, CMP, 40683-4, 11190-0, 28708-0 #### [facility] [place] ([id number]) [address] [place] [address] 94114 Cholesterol in LDL [Mass/Vol] 74 mg/dL Normal <130 [facility] Comment on above: Result Comment: LDL <100 mg/dL - Desirable LDL >160 mg/dL - High Risk Performed By: #### Haroon BCA, 32009-5, CMP, 46392-2, 12200-2, 23016-9 #### [facility] [place] ([id number]) [address] [place] [address] 80617 Cholesterol in VLDL [Mass/Vol] 20 mg/dL Normal 0-30 [facility] Comment on above: Performed By: #### Haroon BCA, 88937-8, CMP, 25464-9, 76923-0, 38376-4 #### [facility] [place] ([id number]) [address] [place] [address] 45465 CHOLESTEROL:HDL 2.7 Normal 1.0-5.0 [facility] Comment on above: Performed By: #### Haroon BCA, 37065-5, CMP, 46609-6, 55038-6, 99190-1 #### [facility] [place] ([id number]) [address] [place] [address] 80024 Triglyceride [Mass/Vol] 98 mg/dL Normal 27-150 [facility] Comment on above: Performed By: #### Haroon BCA, 63189-0, CMP, 08385-0, 12986-5, 87865-1 #### [facility] [place] ([id number]) [address] [place] [address]687 COMPREHENSIVE METABOLIC PANE Samuel 11-10-2023 Albumin [Mass/Vol] 3.8 g/dL Normal 3.2-5.3 [facility] Comment on above: Performed By: #### C BCA, 04465-5, CMP, 71789-9, 85838-1, 42750-4 #### [facility] [place] ([id number]) [address] [place] [address] 46322 ALP [Catalytic activity/Vol] 40 U/L Normal 39-130 [facility] Comment on above: Performed By: #### C BCA, 98636-8, CMP, 40433-0, 93703-3, 95770-6 #### [facility] [place] ([id number]) [address] [place] [address] 21334 ALT [Catalytic activity/Vol] 14 U/L Normal 0-31 [facility] Comment on above: Performed By: #### C BCA, 45167-9, CMP, 66559-3, 98570-4, 91178-0 #### [facility] ([id number]) [address] [place] [address] 60174 Anion gap [Moles/Vol] 11 mmol/L Normal 5-15 [facility] Comment on above: Performed By: #### C BCA, 68007-6, CMP, 84675-0, 38747-8, 40571-3 #### [facility] ([id number]) [address] [place] [address] 47421 AST [Catalytic activity/Vol] 20 U/L Normal 0-41 [facility] Comment on above: Performed By: #### C BCA, 92348-5, CMP, 44771-2, 36836-2, 93527-3 #### [facility] ([id number]) [address] [place] [address] 79472 Bilirubin [Mass/Vol] 0.5 mg/dL Normal 0.3-1.2 [facility] Comment on above: Performed By: #### C BCA, 15967-9, CMP, 99777-5, 92086-4, 37723-6 #### [facility] ([id number]) [address] [place] [address] 91847 Calcium [Mass/Vol] 9.3 mg/dL Normal 8.5-10.5 [facility] Comment on above: Performed By: #### C BCA, 10117-9, CMP, 70159-7, 87901-8, 36937-3 #### [facility] ([id number]) [address] [place] [address] 71488 Chloride [Moles/Vol] 93 mmol/L Low 98-109 [facility] Comment on above: Performed By: #### C BCA, 48812-7, CMP, 67183-7, 13383-1, 76862-8 #### [facility] ([id number]) [address] [place] [address] 18069 CO2 [Moles/Vol] 32 mmol/L Normal 22-32 [facility] Comment on above: Performed By: #### C BCA, 75378-6, CMP, 30443-2, 01948-5, 70280-9 #### [facility] ([id number]) [address] [place] [address] 29638 Creatinine [Mass/Vol] 0.93 mg/dL Normal 0.40-1.00 [facility] Comment on above: Result Comment: METH OD TRACEABLE TO IDMS STANDARD Performed By: #### C BCA, 28541-0, CMP, 12951-4, 34538-9, 46400-0 #### [facility] ([id number]) [address] [place] [address] 89628 GFR/1.73 sq M.predicted among non-blacks MDRD (S/P/Bld) [Vol rate/Area] 67 mL/min/{1.73_m2} Normal >59 [facility] Comment on above: Result Comment: Reported eGFR is based on the CKD-EPI 2020 equation that does not use a race coefficient. Performed By: #### C BCA, 98410-8, CMP, 92007-0, 62922-1, 06657-6 #### [facility] ([id number]) [address] [place] [address] 41450 Glucose [Mass/Vol] 182 mg/dL High 65-99 [facility] Comment on above: Performed By: #### C BCA, 90871-2, CMP, 95856-5, 37114-8, 81001-4 #### [facility] ([id number]) [address] [place] [address] 15475 Potassium [Moles/Vol] 4.3 mmol/L Normal 3.5-5.0 [facility] Comment on above: Performed By: #### C BCA, 18995-5, CMP, 56593-4, 47118-8, 09299-5 #### [facility] ([id number]) [address] [place] [address] 58657 Protein [Mass/Vol] 7.2 g/dL Normal 6.0-8.0 [facility] Comment on above: Performed By: #### C BCA, 48489-1, CMP, 01104-4, 86146-9, 65129-1 #### [facility] ([id number]) [address] [place] [address] 53036 Sodium [Moles/Vol] 136 mmol/L Normal 134-146 [facility] Comment on above: Performed By: #### C BCA, 71584-4, CMP, 19221-2, 38770-1, 89746-8 #### [facility] ([id number]) [address] [place] [address] 20230 Urea nitrogen [Mass/Vol] 32 mg/dL High 5-27 [facility] Comment on above: Performed By: #### C BCA, 46945-2, CMP, 31286-7, 58104-4, 63454-4 #### [facility] ([id number]) [address] [place] [address] 69504 Glucose Glucometer (BldC) [M ass/Vol]on 11-10-2023 Glucose [Mass/Vol] 167 mg/dL High 65-99 [facility] Glucose [Mass/Vol] 188 mg/dL High 65-99 [facility] MAGNESIUMon 11-10-2023 Magnesium [Mass/Vol] 2.1 mg/dL Normal 1.8-2.6 [facility] Comment on above: Performed By: #### C BCA, 68979-2, CMP, 96371-4, 97719-4, 09815-8 #### [facility] ([id number]) [address] [place] [address] 17341 COMPREHENSIVE METABOLIC PANE Samuel 11-09-2023 Albumin [Mass/Vol] 3.9 g/dL Normal 3.2-5.3 [facility] Comment on above: Performed By: #### C BCA, 73540-1, CMP, 25536-5, 95416-7, 99699-9 #### [facility] ([id number]) [address] [place] [address] 07468 ALP [Catalytic activity/Vol] 41 U/L Normal 39-130 [facility] Comment on above: Performed By: #### C BCA, 33429-8, CMP, 68355-8, 67216-0, 58660-0 #### [facility] ([id number]) [address] [place] [address] 91481 ALT [Catalytic activity/Vol] 14 U/L Normal 0-31 [facility] Comment on above: Performed By: #### C BCA, 32713-7, CMP, 54367-8, 76178-9, 22155-8 #### [facility] ([id number]) [address] [place] [address] Anion gap [Moles/Vol] 9 mmol/L Normal 5-15 [facility] Comment on above: Performed By: #### C BCA, 00379-9, CMP, 93330-3, 04859-0, 76383-4 #### [facility] ([id number]) [address] [place] [address] 92904 AST [Catalytic activity/Vol] 21 U/L Normal 0-41 [facility] Comment on above: Performed By: #### C BCA, 05808-9, CMP, 05219-1, 62445-9, 03587-9 #### [facility] ([id number]) [address] [place] [address] 30332 Bilirubin [Mass/Vol] 0.5 mg/dL Normal 0.3-1.2 [facility] Comment on above: Performed By: #### C BCA, 29647-6, CMP, 98870-6, 10650-9, 91765-3 #### [facility] ([id number]) [address] [place] [address] 23559 Calcium [Mass/Vol] 9.1 mg/dL Normal 8.5-10.5 [facility] Comment on above: Performed By: #### C BCA, 31826-4, CMP, 84377-5, 46978-7, 67439-7 #### [facility] ([id number]) [address] [place] [address] 52102 Chloride [Moles/Vol] 93 mmol/L Low 98-109 [facility] Comment on above: Performed By: #### C BCA, 17869-8, CMP, 38375-3, 01352-1, 71400-9 #### [facility] ([id number]) [address] [place] [address] 60321 CO2 [Moles/Vol] 33 mmol/L High 22-32 [facility] Comment on above: Performed By: #### C BCA, 36339-3, CMP, 19300-2, 36559-8, 50105-8 #### [facility] ([id number]) [address] [place] [address] 24339 Creatinine [Mass/Vol] 0.97 mg/dL Normal 0.40-1.00 [facility] Comment on above: Result Comment: METH OD TRACEABLE TO IDMS STANDARD Performed By: #### C BCA, 78346-6, CMP, 35043-5, 46541-1, 38280-9 #### [facility] ([id number]) [address] [place] [address] 87306 GFR/1.73 sq M.predicted among non-blacks MDRD (S/P/Bld) [Vol rate/Area] 64 mL/min/{1.73_m2} Normal >59 [facility] Comment on above: Result Comment: Reported eGFR is based on the CKD-EPI 2020 equation that does not use a race coefficient. Performed By: #### C BCA, 50666-4, CMP, 68040-8, 81580-0, 76101-1 #### [facility] ([id number]) [address] [place] [address] 30256 Glucose [Mass/Vol] 203 mg/dL High 65-99 [facility] Comment on above: Performed By: #### C BCA, 72076-1, CMP, 13944-3, 69295-8, 21745-7 #### [facility] ([id number]) [address] [place] [address] 37122 Potassium [Moles/Vol] 4.5 mmol/L Normal 3.5-5.0 [facility] Comment on above: Performed By: #### C BCA, 75605-7, CMP, 94857-4, 24424-5, 21981-7 #### [facility] ([id number]) [address] [place] [address] 47048 Protein [Mass/Vol] 7.3 g/dL Normal 6.0-8.0 [facility] Comment on above: Performed By: #### C BCA, 87031-0, CMP, 86546-8, 11569-5, 89669-8 #### [facility] ([id number]) [address] [place] [address] 00511 Sodium [Moles/Vol] 135 mmol/L Normal 134-146 [facility] Comment on above: Performed By: #### C BCA, 74135-9, CMP, 51724-6, 45395-2, 40247-5 #### [facility] ([id number]) [address] [place] [address] 91690 Urea nitrogen [Mass/Vol] 25 mg/dL Normal 5-27 [facility] Comment on above: Performed By: #### C BCA, 49107-1, CMP, 28742-9, 88715-4, 31591-4 #### [facility] ([id number]) [address] [place] [address] 11862 Glucose Glucometer (BldC) [M ass/Vol]on 11-09-2023 Glucose [Mass/Vol] 247 mg/dL High 65-99 [facility] Glucose [Mass/Vol] 181 mg/dL High 65-99 [facility] Glucose [Mass/Vol] 201 mg/dL High 65-99 [facility] Glucose [Mass/Vol] 225 mg/dL High 65-99 [facility] MAGNESIUMon 11-09-2023 Magnesium [Mass/Vol] 1.7 mg/dL Low 1.8-2.6 [facility] Comment on above: Performed By: #### C BCA, 15426-4, CMP, 35269-3, 55181-2, 78915-4 #### [facility] ([id number]) [address] [place] [address] 09392 COMPREHENSIVE METABOLIC PANE Samuel 11-08-2023 Albumin [Mass/Vol] 4.0 g/dL Normal 3.2-5.3 [facility] Comment on above: Performed By: #### C BCA, 31106-3, CMP, 19755-0, 66782-3, 57202-0 #### [facility] ([id number]) [address] [place] [address] 93188 ALP [Catalytic activity/Vol] 47 U/L Normal 39-130 [facility] Comment on above: Performed By: #### C BCA, 22621-7, CMP, 75823-8, 81714-0, 70290-0 #### [facility] ([id number]) [address] [place] [address] 35473 ALT [Catalytic activity/Vol] 12 U/L Normal 0-31 [facility] Comment on above: Performed By: #### C BCA, 83623-1, CMP, 55429-8, 74802-2, 58250-3 #### [facility] ([id number]) [address] [place] [address] 01907 Anion gap [Moles/Vol] 8 mmol/L Normal 5-15 [facility] Comment on above: Performed By: #### C BCA, 38994-0, CMP, 64887-9, 11577-4, 81339-2 #### [facility] ([id number]) [address] [place] [address] 77124 AST [Catalytic activity/Vol] 15 U/L Normal 0-41 [facility] Comment on above: Performed By: #### C BCA, 76867-6, CMP, 38187-1, 13152-5, 16566-9 #### [facility] ([id number]) [address] [place] [address] 11176 Bilirubin [Mass/Vol] 0.7 mg/dL Normal 0.3-1.2 [facility] Comment on above: Performed By: #### C BCA, 85322-4, CMP, 65436-6, 11369-0, 34705-0 #### [facility] ([id number]) [address] [place] [address] 23927 Calcium [Mass/Vol] 8.9 mg/dL Normal 8.5-10.5 [facility] Comment on above: Performed By: #### C BCA, 96525-7, CMP, 00096-3, 65608-4, 61311-2 #### [facility] ([id number]) [address] [place] [address] 48435 Chloride [Moles/Vol] 95 mmol/L Low 98-109 [facility] Comment on above: Performed By: #### C BCA, 25373-7, CMP, 40048-1, 60631-9, 88452-5 #### [facility] ([id number]) [address] [place] [address] 76799 CO2 [Moles/Vol] 32 mmol/L Normal 22-32 [facility] Comment on above: Performed By: #### C BCA, 76150-4, CMP, 41764-9, 22421-6, 34059-2 #### [facility] ([id number]) [address] [place] [address] 07040 Creatinine [Mass/Vol] 0.73 mg/dL Normal 0.40-1.00 [facility] Comment on above: Result Comment: METH OD TRACEABLE TO IDMS STANDARD Performed By: #### C BCA, 27308-5, CMP, 35142-8, 68221-1, 80663-7 #### [facility] ([id number]) [address] [place] [address] 88103 GFR/1.73 sq M.predicted among non-blacks MDRD (S/P/Bld) [Vol rate/Area] 90 mL/min/{1.73_m2} Normal >59 [facility] Comment on above: Result Comment: Reported eGFR is based on the CKD-EPI 2020 equation that does not use a race coefficient. Performed By: #### C BCA, 23036-3, CMP, 16316-0, 75083-4, 11359-9 #### [facility] ([id number]) [address] [place] [address] 91345 Glucose [Mass/Vol] 148 mg/dL High 65-99 [facility] Comment on above: Performed By: #### C BCA, 54537-7, CMP, 78684-0, 94065-5, 30896-6 #### [facility] ([id number]) [address] [place] [address] 83696 Potassium [Moles/Vol] 4.6 mmol/L Normal 3.5-5.0 [facility] Comment on above: Performed By: #### C BCA, 64304-1, CMP, 01725-4, 27584-5, 46368-8 #### [facility] ([id number]) [address] [place] [address] 95469 Protein [Mass/Vol] 7.8 g/dL Normal 6.0-8.0 [facility] Comment on above: Performed By: #### C BCA, 07442-2, CMP, 18991-8, 79305-4, 51693-0 #### [facility] ([id number]) [address] [place] [address] 73558 Sodium [Moles/Vol] 135 mmol/L Normal 134-146 [facility] Comment on above: Performed By: #### C BCA, 28083-5, CMP, 54931-9, 22957-0, 36351-7 #### [facility] ([id number]) [address] [place] [address] 88325 Urea nitrogen [Mass/Vol] 13 mg/dL Normal 5-27 [facility] Comment on above: Performed By: #### C BCA, 95664-3, CMP, 75577-9, 96453-4, 00057-9 #### [facility] ([id number]) [address] [place] [address] 78455 Glucose Glucometer (BldC) [M ass/Vol]on 11-08-2023 Glucose [Mass/Vol] 183 mg/dL High 65-99 [facility] Glucose [Mass/Vol] 213 mg/dL High 65-99 [facility] Glucose [Mass/Vol] 164 mg/dL High 65-99 [facility] Glucose [Mass/Vol] 171 mg/dL High 65-99 [facility] Glucose [Mass/Vol] 120 mg/dL High 65-99 [facility] MAGNESIUMon 11-08-2023 Magnesium [Mass/Vol] 1.7 mg/dL Low 1.8-2.6 [facility] Comment on above: Performed By: #### C JAMESON, 15495-4, CMP, 36932-5, 53370-8, 66247-3 #### [facility] ([id number]) [address] [place] [address] 79708 ARTERIAL BLOOD GASon 024 DANICA'S TEST Pass Normal [facility] Comment on above: Performed By: #### Haroon BARBA, 42660-9, CMP, 03025-9, 25113-4, 63447-2 #### [facility] ([id number]) [address] [place] [address] 81679 Base excess Calc (Bld) [Moles/Vol] 4.0 mmol/L High 0.0-2.0 [facility] Comment on above: Performed By: #### Haroon BCA, 06734-2, CMP, 14102-4, 11119-8, 40509-9 #### [facility] ([id number]) [address] [place] [address] 49701 Body temperature 98.6 [degF] Normal 37.0 [facility] Comment on above: Performed By: #### Haroon BCA, 97074-0, CMP, 95247-2, 09487-9, 42418-3 #### [facility] ([id number]) [address] [place] [address] [place] [address] HCO3 (Bld) [Moles/Vol] 33.6 mmol/L High 22-26 [facility] Comment on above: Performed By: #### C BCA, 50068-9, CMP, 34923-0, 49837-2, 15398-5 #### [facility] ([id number]) [address] [place] [address] [place] [address] INSP. O2 CONC. 32 % Normal [facility] Comment on above: Performed By: #### C BCA, 03801-6, CMP, 49773-8, 72315-3, 71687-5 #### [facility] ([id number]) [address] [place] [address] 53149 Oxygen (Bld) [Partial pressure] 112 mm[Hg] High 80-100 [facility] Comment on above: Performed By: #### C BCA, 00656-1, CMP, 21408-7, 21505-1, 90632-7 #### [facility] ([id number]) [address] [place] [address] 19046 Oxygen saturation in Blood 97.0 % Normal >90 [facility] Comment on above: Performed By: #### Haroon BCA, 20724-8, CMP, 16913-1, 76343-5, 94464-2 #### [facility] ([id number]) [address] [place] [address] [place] [address] OXYGEN SOURCE [place] Normal [facility] Comment on above: Performed By: #### C BCA, 23873-3, CMP, 07474-0, 76148-8, 71349-3 #### [facility] ([id number]) [address] [place] [address] [place] [address] PCO2 72.0 MMHG Critically high 35-45 [facility] Comment on above: Performed By: #### C BCA, 77995-2, CMP, 74440-7, 61205-2, 18984-8 #### [facility] ([id number]) [address] [place] [address] 09411 pH (Bld) 7.277 [pH] Low 7.350-7.450 [facility] Comment on above: Performed By: #### C BCA, 15863-2, CMP, 89493-5, 14142-4, 17293-3 #### [facility] ([id number]) [address] [place] [address] 46227 SAMPLE SITE RRad Normal [facility] Comment on above: Performed By: #### C BCA, 60294-7, CMP, 33653-8, 93541-7, 69837-1 #### [facility] ([id number]) [address] [place] [address] 13308 SAMPLE TYPE ARTERIAL Normal [facility] Comment on above: Performed By: #### C BCA, 91913-5, CMP, 65376-4, 01749-6, 95203-7 #### [facility] ([id number]) [address] [place] [address] 74850 DANICA'S TEST Pass Normal [facility] Comment on above: Performed By: #### A BG #### [facility] ([id number]) [address] [place] [address] 57417 Base excess Calc (Bld) [Moles/Vol] 5.0 mmol/L High 0.0-2.0 [facility] Comment on above: Performed By: #### A BG #### [facility] ([id number]) [address] [place] [address] 26445 Body temperature 98.6 [degF] Normal 37.0 [facility] Comment on above: Performed By: #### A BG #### [facility] ([id number]) [address] [place] [address] [place] [address] HCO3 (Bld) [Moles/Vol] 34.0 mmol/L High 22-26 P [facility] Comment on above: Performed By: #### A BG #### [facility] ([id number]) [address] [place] [address] 38533 Oxygen (Bld) [Partial pressure] 106 mm[Hg] High 80-100 [facility] Comment on above: Performed By: #### A BG #### [facility] ([id number]) [address] [place] [address] 50216 Oxygen saturation in Blood 97.0 % Normal >90 [facility] Comment on above: Performed By: #### A BG #### [facility] ([id number]) [address] [place] [address] 74067 OXYGEN SOURCE [place] [facility] Comment on above: Performed By: #### A BG #### [facility] ([id number]) [address] [place] [address] [place] [address] PCO2 70.5 MMHG Critically high 35-45 [facility] Comment on above: Performed By: #### A BG #### [facility] ([id number]) [address] [place] [address] 36219 pH (Bld) 7.291 [pH] Low 7.350-7.450 [facility] Comment on above: Performed By: #### A BG #### [facility] ([id number]) [address] [place] [address] [place] [address] SAMPLE SITE RRad [facility] Comment on above: Performed By: #### A BG #### [facility] ([id number]) [address] [place] [address] [place] [address] SAMPLE TYPE ARTERIAL Normal [facility] Comment on above: Performed By: #### A BG #### [facility] ([id number]) [address] [place] [address] 21228 BLOOD CULTUREon 11-07-2023 Bacteria identified Aer cx Nom (Bld) SPECIMEN NOTES LAC CULTURE RESULTS NO GROWTH 5 DAYS Normal [facility] Comment on above: Performed By: #### C BCA, 66170-7, CMP, 25130-4, 39344-4, 19799-8 #### [facility] [place] ([id number]) [address] [place] [address]402 Bacteria identified Aer cx Nom (Bld) SPECIMEN NOTES RHAND CULTURE RESULTS NO GROWTH 5 DAYS Normal [facility] Comment on above: Performed By: #### C BCA, 66389-1, CMP, 90640-9, 69251-4, 75572-7 #### [facility] [place] ([id number]) [address] [place] [address]6214 CBC AND AUTO DIFFon 11-07-19 24 ABSOLUTE BASOPHIL 0.0 X10E9/L Normal 0.0-0.2 [facility] Comment on above: Performed By: #### C BCA, 24554-1, CMP, 69601-3, 82229-1, 16623-6 #### [facility] [place] ([id number]) [address] [place] [address] 20042 ABSOLUTE NEUTROPHIL 4.9 X10E9/L Normal 1.5-6.6 [facility] Comment on above: Performed By: #### C BCA, 60605-4, CMP, 40176-5, 09018-8, 70593-1 #### [facility] ([id number]) [address] [place] [address] 39247 Basophils/100 WBC (Bld) 0.5 % Normal [facility] Comment on above: Performed By: #### C BCA, 16703-8, CMP, 67512-8, 23981-5, 65635-4 #### [facility] [place] [place] ([id number]) [address] [place] [address] 97505 Eosinophils (Bld) [#/Vol] 0.1 10*3/uL Normal 0.0-0.4 [facility] Comment on above: Performed By: #### C BCA, 19372-4, CMP, 99849-9, 36679-5, 57817-8 #### [facility] [place] [place] ([id number]) [address] [place] [address] 43376 Eosinophils/100 WBC (Bld) 1.3 % Normal [facility] Comment on above: Performed By: #### Haroon BCA, 39146-3, CMP, 01316-9, 95120-8, 60499-8 #### [facility] [place] ([id number]) [address] [place] [address] 38400 Erythrocyte distribution width (RBC) [Ratio] 16.4 % High 11.5-15.0 [facility] Comment on above: Performed By: #### Haroon BCA, 39677-0, CMP, 82941-9, 06798-1, 63457-1 #### [facility] [place] ([id number]) [address] [place] [address] 38544 Hematocrit (Bld) [Volume fraction] 40.0 % Normal 35-47 [facility] Comment on above: Performed By: #### Haroon BCA, 67681-9, CMP, 88263-7, 03732-7, 59051-7 #### [facility] ([id number]) [address] [place] [address] 45984 Hemoglobin (Bld) [Mass/Vol] 12.6 g/dL Normal 11.7-15.5 [facility] Comment on above: Performed By: #### Haroon BCA, 39649-5, CMP, 77892-5, 26137-4, 75251-8 #### [facility] ([id number]) [address] [place] [address] 94243 Lymphocytes (Bld) [#/Vol] 1.0 10*3/uL Normal 1.0-3.5 [facility] Comment on above: Performed By: #### C BCA, 94190-8, CMP, 85297-8, 58391-1, 75900-1 #### [facility] ([id number]) [address] [place] [address] 50051 Lymphocytes/100 WBC (Bld) 15.1 % Normal [facility] Comment on above: Performed By: #### Haroon BCA, 73622-3, CMP, 59341-0, 34702-5, 76318-5 #### [facility] ([id number]) [address] [place] [address] 05286 MCH (RBC) [Entitic mass] 27.3 pg Normal 27-34 [facility] Comment on above: Performed By: #### Haroon BARBA, 67789-8, CMP, 89433-2, 05718-9, 19342-2 #### [facility] ([id number]) [address] [place] [address] 46618 MCHC (RBC) [Mass/Vol] 31.4 g/dL Low 32-36 [facility] Comment on above: Performed By: #### Haroon BCA, 34920-9, CMP, 70684-6, 72335-8, 96957-8 #### [facility] ([id number]) [address] [place] [address] 15281 MCV (RBC) [Entitic vol] 87 fL Normal 80-100 [facility] Comment on above: Performed By: #### Haroon BCA, 95916-4, CMP, 21476-9, 76703-9, 79072-8 #### [facility] ([id number]) [address] [place] [address] 98440 Monocytes (Bld) [#/Vol] 0.4 10*3/uL Normal 0-0.9 [facility] Comment on above: Performed By: #### C BCA, 56540-3, CMP, 24792-3, 03901-1, 49436-2 #### [facility] ([id number]) [address] [place] [address] 98935 Monocytes/100 WBC (Bld) 6.5 % Normal [facility] Comment on above: Performed By: #### C BCA, 56023-7, CMP, 41655-3, 42559-3, 91897-2 #### [facility] ([id number]) [address] [place] [address] 58926 Neutrophils/100 WBC (Bld) 76.6 % Normal [facility] Comment on above: Performed By: #### C BCA, 92037-2, CMP, 07849-8, 27831-6, 89052-5 #### [facility] ([id number]) [address] [place] [address] 78971 Platelet mean volume (Bld) [Entitic vol] 9.2 fL Normal 7-12 [facility] Comment on above: Performed By: #### C BCA, 62496-8, CMP, 38932-6, 66588-7, 06114-0 #### [facility] ([id number]) [address] [place] [address] 36511 Platelets (Bld) [#/Vol] 192 10*3/uL Normal 150-450 [facility] Comment on above: Performed By: #### C BCA, 52155-1, CMP, 56735-9, 10233-2, 06773-5 #### [facility] ([id number]) [address] [place] [address] 29996 RBC COUNT 4.60 X10E12/L Normal 3.80-5.20 [facility] Comment on above: Performed By: #### C BCA, 82063-6, CMP, 45890-1, 44275-0, 30523-9 #### [facility] ([id number]) [address] [place] [address] 06310 WBC (Bld) [#/Vol] 6.4 10*3/uL Normal 4.0-11.0 [facility] Comment on above: Performed By: #### C BCA, 54150-0, CMP, 23604-0, 28053-6, 55435-8 #### [facility] ([id number]) [address] [place] [address] 19929 COMPREHENSIVE METABOLIC PANE Samuel 11-07-2023 Albumin [Mass/Vol] 4.1 g/dL Normal 3.2-5.3 [facility] Comment on above: Performed By: #### C BCA, 06742-6, CMP, 46055-2, 41840-1, 11376-9 #### [facility] ([id number]) [address] [place] [address] 77816 ALP [Catalytic activity/Vol] 44 U/L Normal 39-130 [facility] Comment on above: Performed By: #### C BCA, 08214-2, CMP, 28801-2, 43078-7, 78300-2 #### [facility] ([id number]) [address] [place] [address] 74351 ALT [Catalytic activity/Vol] 12 U/L Normal 0-31 [facility] Comment on above: Performed By: #### C BCA, 86789-5, CMP, 83616-6, 29803-2, 20840-8 #### [facility] ([id number]) [address] [place] [address] 40101 Anion gap [Moles/Vol] 9 mmol/L Normal 5-15 [facility] Comment on above: Performed By: #### C BCA, 47502-7, CMP, 02033-0, 94446-4, 75052-3 #### [facility] ([id number]) [address] [place] [address] 38281 AST [Catalytic activity/Vol] 19 U/L Normal 0-41 [facility] Comment on above: Performed By: #### C BCA, 91928-0, CMP, 96749-5, 46614-9, 86370-9 #### [facility] ([id number]) [address] [place] [address] 19482 Bilirubin [Mass/Vol] 0.5 mg/dL Normal 0.3-1.2 [facility] Comment on above: Performed By: #### C BCA, 01130-2, CMP, 11026-8, 18603-5, 85670-9 #### [facility] [place] [place] ([id number]) [address] [place] [address] 02136 Calcium [Mass/Vol] 8.8 mg/dL Normal 8.5-10.5 [facility] Comment on above: Performed By: #### C BCA, 00404-8, CMP, 24412-9, 38319-3, 12874-0 #### [facility] ([id number]) [address] [place] [address] 51155 Chloride [Moles/Vol] 95 mmol/L Low 98-109 [facility] Comment on above: Performed By: #### C BCA, 27349-1, CMP, 97718-7, 15680-1, 57004-7 #### [facility] ([id number]) [address] [place] [address] 12522 CO2 [Moles/Vol] 30 mmol/L Normal 22-32 [facility] Comment on above: Performed By: #### C BCA, 20312-3, CMP, 79591-5, 54754-7, 22187-9 #### [facility] ([id number]) [address] [place] [address] 36217 Creatinine [Mass/Vol] 0.62 mg/dL Normal 0.40-1.00 [facility] Comment on above: Result Comment: METH OD TRACEABLE TO IDMS STANDARD Performed By: #### C BCA, 78733-0, CMP, 76593-2, 42702-8, 20496-8 #### [facility] ([id number]) [address] [place] [address] 64637 eGFR (CKD-EPI) NON-RACE DEPENDENT >90 Normal >59 [facility] Comment on above: Result Comment: Reported eGFR is based on the CKD-EPI 2020 equation that does not use a race coefficient. Performed By: #### C BCA, 96454-4, CMP, 13670-5, 47622-8, 32284-9 #### [facility] ([id number]) [address] [place] [address] 12032 Glucose [Mass/Vol] 127 mg/dL High 65-99 [facility] Comment on above: Performed By: #### C BCA, 76507-9, CMP, 74382-6, 56040-3, 74922-5 #### [facility] ([id number]) [address] [place] [address] 48419 Potassium [Moles/Vol] 4.3 mmol/L Normal 3.5-5.0 [facility] Comment on above: Performed By: #### C BCA, 06609-2, CMP, 70987-8, 89523-8, 09876-8 #### [facility] ([id number]) [address] [place] [address] 30820 Protein [Mass/Vol] 7.7 g/dL Normal 6.0-8.0 [facility] Comment on above: Performed By: #### C BCA, 76237-4, CMP, 05767-4, 49080-2, 96678-7 #### [facility] ([id number]) [address] [place] [address] 97193 Sodium [Moles/Vol] 134 mmol/L Normal 134-146 [facility] Comment on above: Performed By: #### C BCA, 44152-9, CMP, 47037-2, 13273-8, 45991-6 #### [facility] ([id number]) [address] [place] [address] 98823 Urea nitrogen [Mass/Vol] 13 mg/dL Normal 5-27 [facility] Comment on above: Performed By: #### C BCA, 97571-6, CMP, 23071-6, 88307-5, 71160-0 #### [facility] ([id number]) [address] [place] [address] 45460 Lactate (P willi) [Moles/Vol]o n 11-07-2023 LACTATE W/REFLEX 1.9 mmol/L Normal 0.4-2.0 [facility] Comment on above: Result Comment: Result did not trigger repeat Lactate, re-order if needed. Performed By: #### C BCA, 96704-6, CMP, 04044-7, 47339-5, 80670-9 #### [facility] ([id number]) [address] [place] [address] 36978 MAGNESIUMon 11-07-2023 Magnesium [Mass/Vol] 1.8 mg/dL Normal 1.8-2.6 [facility] Comment on above: Performed By: #### C BCA, 22338-0, CMP, 02111-1, 60032-4, 74255-5 #### [facility] ([id number]) [address] [place] [address] 94838 Natriuretic peptide B [Mass/ Vol]on 11-07-2023 Natriuretic peptide B (Bld) [Mass/Vol] 136 pg/mL High <100.0 [facility] Comment on above: Performed By: #### C BCA, 14453-3, CMP, 62327-8, 16710-7, 42100-7 #### [facility] ([id number]) [address] [place] [address] 21990 SARS/FLU A+B/RSV by NAAT/Mol ecularon 11-07-2023 SARS/FLU A+B/RSV by NAAT/Molecular FLU A PCR Negative (qualifier value) FLU B PCR Negative (qualifier value) RSV by PCR Negative (qualifier value) SARS CoV 2 Not detected (qualifier value) NOTE The Xpert Xpress SARS-CoV-2/Flu/RSV Plus test is a rapid, multiplexed real-time RT-PCR test intended for the simultaneous qualitative detection and differentiation of SARS-CoV-2, influenza A, influenza B and respiratory syncytial virus (RSV) viral RNA from individuals suspected of respiratory viral infection consistent with COVID-19 by their healthcare provider. This test has not been validated in asymptomatic patients. The Xpert Xpress SARS-CoV-2 test is intended for use by qualified and trained operators who are performing tests using either Sogou or JANZZ systems and is limited to laboratories that meet the CLIA requirements to perform high and moderate complexity tests. The Xpert Xpress SARS-CoV-2/Flu/RSV Plus is only for use under the Food and Drug Administration's Emergency Use Authorization. Results are for the simultaneous detection and differentiation of SARS-CoV-2, influenza A, influenza B and RSV nucleic acids in clinical specimens. SARS-CoV-2, influenza A, influenza B and RSV RNA identified by this test are generally detectable in upper respiratory samples during the acute phase of infection. Positive results are indicative of the presence of the identified virus, but do not rule out bacterial infection or co-infection with other pathogens not detected by this test. Clinical correlation with patient history and other diagnostic information is necessary to determine patient infection status. The agent detected may not be the definite cause of disease. Negative results do not preclude SARS-CoV-2, influenza A, influenza B and RSV infection and should not be used as the sole basis for treatment or other patient management decisions. Negative results must be combined with clinical observations, patient history and epidemiological information. An Invalid result may occur with specimen-associated inhibition unable to be resolved with specimen repeat. Fact Sheet for Healthcare Providers: https://www.fda.gov/m edia/522615/download Fact Sheet for Patients: https://www.fda.gov/m edia/664151/download Normal [facility] Comment on above: Performed By: #### C OVFLR #### [facility] ([id number]) [address] [place] [address] 14342 TROPONIN Ion 11-07-2023 Troponin I.cardiac [Mass/Vol] 0.01 ng/mL Normal 0.00-0.04 [facility] Comment on above: Performed By: #### C BCA, 86686-3, CMP, 17874-4, 06284-0, 70693-5 #### [facility] ([id number]) [address] [place] [address] 35404 URINE CULTUREon 11-07-2023 Bacteria identified Cx Nom (U) CULTURE RESULTS 10-50,000 ORGANISMS/mL NORMAL UROGENITAL DYLAN Normal [facility] Comment on above: Performed By: #### C BCA, 31125-5, CMP, 92119-9, 60488-3, 21958-6 #### [facility] ([id number]) [address] [place] [address] 96081 URN MACROSCOPIC NURon 2023 BILIRUBIN ADRIAN Negative Normal NEG [facility] Comment on above: Performed By: #### N UM #### [facility] ([id number]) [address] [place] [address] 46486 BLOOD/HGB ADRIAN Negative Normal NEG [facility] Comment on above: Performed By: #### N UM #### [facility] ([id number]) [address] [place] [address] 04274 GLUCOSE ADRIAN Negative Normal NEG [facility] Comment on above: Performed By: #### N UM #### [facility] ([id number]) [address] [place] [address] 67199 KETONES ADRIAN Negative Normal NEG [facility] Comment on above: Performed By: #### N UM #### [facility] ([id number]) [address] [place] [address] 90815 LEUKOCYTE ESTERASE ADRIAN Negative Normal NEG [facility] Comment on above: Performed By: #### N UM #### [facility] ([id number]) [address] [place] [address] 69180 NITRITE ADRIAN Negative Normal NEG [facility] Comment on above: Performed By: #### N UM #### [facility] ([id number]) [address] [place] [address] 66666 PH ADRIAN 5.5 Normal 5.0-8.5 [facility] Comment on above: Performed By: #### N UM #### [facility] ([id number]) [address] [place] [address] 36983 PROTEIN ADRIAN Negative Normal NEG [facility] Comment on above: Performed By: #### N UM #### [facility] ([id number]) [address] [place] [address] 18741 SPECIFIC GRAVITY ADRIAN 1.020 Normal 1.003-1.035 [facility] Comment on above: Performed By: #### N UM #### [facility] ([id number]) [address] [place] [address] 84429 UROBILINOGEN ADRIAN 0.2 eu/dL Normal <1.1 [facility] Comment on above: Performed By: #### N UM #### [facility] ([id number]) [address] [place] [address] 25014 XR CHEST 1 VWon 11-07-2023 XR CHEST 1 VW XR CHEST 1 VW Single view chest History:cough weakness sob Difficulty breathing, shortness of breath Comparison: 05/03/2023 Findings: Single portable view of the chest. Expiratory changes and bronchovascular crowding. No focal consolidation large effusion or pneumothorax. Impression: No definitive acute cardiopulmonary process. Finalized by Rex Veliz MD on 11/07/2023 4:17 PM Normal [facility] Office Visiton 07-02-2023 Follow-up visit [id number] Diana Oliver 1955 F Date Provider Department Center 07/02/2023 CONNIE OSULLIVAN EVA [facility] Family History Problem Relation Age of Onset Coronary artery disease Father Atrial fibrillation Sister Family Status - Relation Status Age at Father Sister Level of Service:57388 AL OFFICE/OUTPATIENT ESTABLISHED MOD MDM 30-39 MIN Normal [facility] Office Visiton 05-21-2023 Follow-up visit [id number] Diana Oliver 1955 F Date Provider Department Center 05/21/2023 LATRELL CARRERA [facility] Family History Problem Relation Age of Onset Coronary artery disease Father Atrial fibrillation Sister Family Status - Relation Status Age at Father Sister Level of Service:07868 AL OFFICE/OUTPATIENT ESTABLISHED MOD MDM 30-39 MIN Normal [facility] Office Visiton 03-26-2023 Follow-up visit [id number] Diana Oliver 1955 F Date Provider Department Center 03/26/2023 PauletteCONNIE DESIR EVA [facility] Family History Problem Relation Age of Onset Coronary artery disease Father Atrial fibrillation Sister Family Status - Relation Status Age at Father Sister Level of Service:28326 AL OFFICE/OUTPATIENT ESTABLISHED MOD MDM 30-39 MIN Normal [facility] SARS-CoV-2 (COVID-19) RNA SANTIAGO+probe Ql (Unsp spec) Not detected Normal NOT DETECTED [facility] Comment on above: Result Comment: This test is not yet approved or cleared by the [place] FDA. When there are no FDA-approved or cleared tests available, and other criteria are met, FDA can make tests available under an emergency access mechanism called an Emergency Use Authorization (EUA). The EUA for this test is supported by the [place] of Health and Human Service's (HHS's) declaration that circumstances exist to justify the emergency use of in vitro diagnostics for the detection and/or diagnosis of the virus that causes COVID-19. This EUA will remain in effect (meaning this test can be used) for the duration of the COVID-19 declaration justifying emergency of IVDs, unless it is terminated or revoked by FDA (after which the test may no longer be used). When diagnostic testing is negative, the possibility of a false negative should be considered in the context of a patient's recent exposures and the presence of clinical signs and symptoms consistent with SARS-CoV-2. Performed By: #### C [facility] #### [facility] [address] [address] [address] Tierra Ramey Patient Educationon 07-25-20 22 Patient Education Obstetrics and Gynecology Kegel Exercises Kegel exercises can help strengthen your pelvic floor muscles. The pelvic floor is a group of muscles that support your rectum, small intestine, and bladder. In females, pelvic floor muscles also help support the womb (uterus). These muscles help you control the flow of urine and stool. Kegel exercises are painless and simple, and they do not require any equipment. Your provider may suggest Kegel exercises to: ? Improve bladder and bowel control. ? Improve sexual response. ? Improve weak pelvic floor muscles after surgery to remove the uterus (hysterectomy) or (females). ? Improve weak pelvic floor muscles after prostate gland removal or surgery (males). Kegel exercises involve squeezing your pelvic floor muscles, which are the same muscles you squeeze when you try to stop the flow of urine or keep from passing gas. The exercises can be done while sitting, standing, or lying down, but it is best to vary your position. Exercises How to do Kegel exercises: 1. Squeeze your pelvic floor muscles tight. You should feel a tight lift in your rectal area. If you are a female, you should also feel a tightness in your vaginal area. Keep your stomach, buttocks, and legs relaxed. 2. Hold the muscles tight for up to 10 seconds. 3. Breathe normally. 4. Relax your muscles. 5. Repeat as told by your health care provider. Repeat this exercise daily as told by your health care provider. Continue to do this exercise for at least 4?6 weeks, or for as long as told by your health care provider. You may be referred to a physical therapist who can help you learn more about how to do Kegel exercises. Depending on your condition, your health care provider may recommend: ? Varying how long you squeeze your muscles. ? Doing several sets of exercises every day. ? Doing exercises for several weeks. ? Making Kegel exercises a part of your regular exercise routine. This information is not intended to replace advice given to you by your health care provider. Make sure you discuss any questions you have with your health care provider. Document Released: 09/30/2013 Document Revised: 06/03/2019 Document Reviewed: 06/03/2019 [employer] Patient Education ? 2019 [employer] [facility] Urology Office/Clinic Noteon 07-25-2022 Urology Office/Clinic Note Chief Complaint 1 month follow up from Cysto HPI Staff Diana is here today for a 1 month follow up from cysto done on 06/26/22. Previous DX: Stress incontinence, gross hematuria. Renal US done on 07/05/22 at [facility] impression shows normal ultrasound appearance of the kidneys, limited evaluation of the urinary bladder due to patient body habitus, no visible abnormality. Pt could not give a UA sample today. Dysuria: _denies Incomplete bladder emptying: _yes Hematuria: _yes Frequency: _4-6 times every hour, states they think its because of the water pill Urgency: _severe Nocturia: _2x Stream: _steady Leaking: _yes Post void dripping: _denies Wearing pads/ Depends: _yes when she goes places Urge incontinence: _yes Stress incontinence: _yes Incontinence without Sensory Awareness: _denies Abdominal pain: _denies Flank pain: _denies Sexual complaints: _ History of Present Illness Tests Reviewed: Reviewed UA, bladder US I have reviewed and verified the staff HPI to be accurate for this encounter. I have reviewed the previous health record information and history for this patient from Dr. Chase There have been no associated fever, chills, flank pain, or blood in the urine. Denies any urinary infections since last encounter. Review of Systems ROS - Provider Constitutional: denies weight loss, denies hot flashes. Eyes: denies eye problems. Gastrointestinal: denies nausea, denies vomiting. Cardiovascular: denies chest pain or angina. Integumentary: no dryness Musculoskeletal: denies musculoskeletal symptoms. ENMT: denies otolaryngeal symptoms. Respiratory: no shortness of breath. Heme/Lymph: denies easy bleeding tendency, denies easy bruising tendency. Psychiatric: no confusion, no anxiety. Genitourinary: see HPI Physical Exam Vitals & Measurements HR: 49(Peripheral) RR: 16 BP: 119/66 HT: 60 in HT: 153 cm WT: 157 kg WT: 345.4 lb BMI: 67.07 General Appearance: alert , no acute distress, well nourished, well developed female. Morbidly obese Genitourinary: bladder nonpalpable, no flank pain. Assessment/Plan 1. Gross hematuria (R31.0: Gross hematuria) -Unsure if hemorrhoids or urine - Pt did not leave a urine sample today - Renal US done on 07/05/22 at [facility] impression shows normal ultrasound appearance of the kidneys, limited evaluation of the urinary bladder due to patient body habitus, no visible abnormality. - Previous cyto showed Atypical urothelial cells, cysto done on 06/26/22 - negative for tumors - No recurrence since -Follow up prn if recurs 2. Stress incontinence (N39.3: Stress incontinence (female) (male)) - does have leakage, and wear pads when she is out in public - pt stated she has tried Kegel exercises and they have been helping, and also helped with the leakage. Encourage to continue with these exercises - been practicing getting on a routine with urinating every 2 hours - Lasix plays a huge role in pt's urinary complaints - Discussed sling procedure, bulking agent risks and benefits of each. Pt knows that if she decides to move forward with the sling procedure she will have to be referred due to her being a high risk for this procedure. Pt will let us know if she decides in the future if she would like to move forward with a surgical procedure in the future. Overall feels pelvic exercises are helping. Will cont conservative measures for now, timed voiding All questions and concerns were discussed. Pt acknowledge and understands. Pt will call our office with any changes in urinary symptoms. 3. Anticoagulated (Z79.01: residential (current) use of anticoagulants) - Pt is currently taking Xarelto Follow-up With When Contact Information Salvatore RODRIGUEZ, Lis Vega, URL, URO Only if needed Additional Instructions: PRN Patient Education Kegel Exercises Zaida, Sharyn Cortes, personally scribed for Dr. Chase on 07/25/2022 10:52:34. . Documentation recorded by the scribe, Sharyn Cortes, accurately reflects the services(s) I performed and decisions made by me. Authenticated by Dr. Chase on 07/25/2022 11:00:49. Problem List/Past Medical History Ongoing Anticoagulated Gross hematuria Stress incontinence Historical No qualifying data Procedure/Surgical History Cystoscopy (06/26/2022). Medications albuterol furosemide, Daily lisinopril, Oral, Daily metformin, Oral metoprolol spironolactone, Oral Xarelto, Oral Allergies Contrast Dye (Hives) Demerol (Hives) Social History Tobacco Former smoker, quit more than 30 days ago Tobacco Use:. Never Smokeless Tobacco Use:., 07/25/2022 Family History Family history is unknown Immunizations Vaccine Date Status Comments SARS-CoV-2 mRNA (tozinameran 5y-11y) vac - Not Given Patient Refuses SARS-CoV-2 mRNA (tozinameran 5y-11y) vac - Not Given Postpone due to refusal influenza virus vaccine, inactivated 09/01/2021 Recorded influenza virus vaccine, inactiv (more content not included)... Normal [facility] Comment on above: Result Comment: Elec tronically Signed By: Lis Chase MD\.br\Date and Time Signed: 07/25/22 11:00 EDT\.br\Electronically Co-Signed By: Sharyn Cortes\.br\Date and Time Co-Signed: 07/25/22 10:52 EDT RAD - Ultrasound Reporton RAD - Ultrasound Report [id number] .[id number]:127 Normal [facility] US KIDNEYS BLADDERon 022 US KIDNEYS BLADDER EXAMINATION: US KIDNEYS BLADDER HISTORY: [place] hematuria COMPARISON: No relevant comparison available. TECHNIQUE: Ultrasound examination was performed of the kidneys and urinary bladder. FINDINGS: RIGHT KIDNEY: No evidence of pelvocaliectasis, mass, or calculi. Normal renal cortical parenchymal echogenicity. Color Doppler demonstrates blood flow within the kidney. Kidney: 13.1 x 5.6 x 5.1 cm LEFT KIDNEY: No evidence of pelvocaliectasis, mass, or calculi. Normal renal cortical parenchymal echogenicity. Color Doppler demonstrates blood flow within the kidney. Kidney: 13.3 x 4.3 x 4.8 cm BLADDER: No visible wall thickening, mass, or calculi. Post void residual: 0 mL URETERAL JETS: Not seen. IMPRESSION: 1. Normal ultrasound appearance of the kidneys. 2. Limited evaluation of the urinary bladder due to patient body habitus; no visible abnormality. Electronically authenticated by: RAMY MIXON Date: 2022-07-05 11:24 Normal [facility] Consent for Procedure/Surger yon 06-27-2022 Consent for Procedure/Surgery [id number]:127 Normal [facility] Patient Educationon 06-26-20 22 Patient Education Urology Hematuria, Adult Hematuria is blood in the urine. Blood may be visible in the urine, or it may be identified with a test. This condition can be caused by infections of the bladder, urethra, kidney, or prostate. Other possible causes include: ? Kidney stones. ? Cancer of the urinary tract. ? Too much calcium in the urine. ? Conditions that are passed from parent to child (inherited conditions). ? Exercise that requires a lot of energy. Infections can usually be treated with medicine, and a kidney stone usually will pass through your urine. If neither of these is the cause of your hematuria, more tests may be needed to identify the cause of your symptoms. It is very important to tell your health care provider about any blood in your urine, even if it is painless or the blood stops without treatment. Blood in the urine, when it happens and then stops and then happens again, can be a symptom of a very serious condition, including cancer. There is no pain in the initial stages of many urinary cancers. Follow these instructions at home: Medicines ? Take yhss-jgd-motstuj and prescription medicines only as told by your health care provider. ? If you were prescribed an antibiotic medicine, take it as told by your health care provider. Do not stop taking the antibiotic even if you start to feel better. Eating and drinking ? Drink enough fluid to keep your urine clear or pale yellow. It is recommended that you drink 3?4 quarts (2.8?3.8 L) a day. If you have been diagnosed with an infection, it is recommended that you drink cranberry juice in addition to large amounts of water. ? Avoid caffeine, tea, and carbonated beverages. These tend to irritate the bladder. ? Avoid alcohol because it may irritate the prostate (men). General instructions ? If you have been diagnosed with a kidney stone, follow your health care provider's instructions about straining your urine to catch the stone. ? Empty your bladder often. Avoid holding urine for long periods of time. ? If you are female: ? After a bowel movement, wipe from front to back and use each piece of toilet paper only once. ? Empty your bladder before and after sex. ? Pay attention to any changes in your symptoms. Tell your health care provider about any changes or any new symptoms. ? It is your responsibility to get your test results. Ask your health care provider, or the department performing the test, when your results will be ready. ? Keep all follow-up visits as told by your health care provider. This is important. Contact a health care provider if: ? You develop back pain. ? You have a fever. ? You have nausea or vomiting. ? Your symptoms do not improve after 3 days. ? Your symptoms get worse. Get help right away if: ? You develop severe vomiting and are unable take medicine without vomiting. ? You develop severe pain in your back or abdomen even though you are taking medicine. ? You pass a large amount of blood in your urine. ? You pass blood clots in your urine. ? You feel very weak or like you might faint. ? You faint. Summary ? Hematuria is blood in the urine. It has many possible causes. ? It is very important that you tell your health care provider about any blood in your urine, even if it is painless or the blood stops without treatment. ? Take snwg-irj-sacwcop and prescription medicines only as told by your health care provider. ? Drink enough fluid to keep your urine clear or pale yellow. This information is not intended to replace advice given to you by your health care provider. Make sure you discuss any questions you have with your health care provider. Document Released: 10/14/2006 Document Revised: 03/09/2020 Document Reviewed: 11/16/2017 [employer] Patient Education ? 2019 [employer] [facility] Urology Office/Clinic Noteon 06-26-2022 Urology Office/Clinic Note Chief Complaint Cysto HPI Staff Cysto, review urine cytology. History of Present Illness Tests reviewed: Urine Cytology I have reviewed the previous health record information and history for this patient from Dr. Chase. I have reviewed and verified the staff HPI to be accurate for this encounter. There have been no associated fever, chills, flank pain, or blood in the urine. Denies any urinary infections since last encounter.= Review of Systems PHQ Score Initial Depression Screen Score: 0 ROS - Provider Constitutional: denies weight loss, denies hot flashes. Eyes: denies eye problems. Gastrointestinal: denies nausea, denies vomiting. Cardiovascular: denies chest pain or angina. Integumentary: no dryness Musculoskeletal: denies musculoskeletal symptoms. ENMT: denies otolaryngeal symptoms. Respiratory: moderate shortness of breath. Heme/Lymph: denies easy bleeding tendency, denies easy bruising tendency. Psychiatric: no confusion, no anxiety. Genitourinary: denies vaginal discharge, severe incontinence, denies dysuria, denies hematuria, denies urinary frequency, denies amenorrhea, denies menorrhagia, denies abnormal bleeding, denies pelvic pain, denies genital sores, and denies decreased libido. Physical Exam Vitals & Measurements HR: 84(Peripheral) BP: 118/77 HT: 153.0 cm HT: 153.0 cm WT: 157.0 kg WT: 157 kg BMI: 67.07 General Appearance: alert , no acute distress, well nourished, well developed female. Obese, short of breath at baseline with activity. Wheelchair bound Genitourinary: bladder nonpalpable, no flank pain. Procedure Operative Information Anesthesia Type: Local Procedure: Local Cystoscopy Complications: None Surgical risks, benefits, details of the procedure have been explained to the patient. Full informed consent has been obtained. Intraoperative Information Prepped: Patient is brought back to the endoscopy suite. Patient is placed in supine position. Patient prepped in the usual fashion with Hibiclens solution. 2% Xylocaine Jelly is placed per Urethra. After waiting several minutes, the Cystoscope is introduced. The Urethra is: Normal no masses or stricture The Bladder: Normal, Trabeculated: None (0) No bladder tumors or lesions The Ureteral orifices: Show efflux of clear urine Removal: Cystoscope is removed. The patient tolerated it well. Vaginal examination: Vaginal mucosa: There is moderate vaginal atrophy The urethra is patent, retracted. There are no masses or lesions. There is urethral hypermobility and SAURAV is seen. She is unable to correctly identify her pelvic muscles. Short vaginal canal 3-4 cm, cervix absent. No palpable prolapse on valsalva, non tender Limited view due to body habitus and positioning limitations by pt. Postoperative Information Patient is discharged home with antibiotic coverage. Follow up arranged. Assessment/Plan 1. Gross hematuria (R31.0: Gross hematuria) UA last visit shows moderate blood, reported gross hematuria for two weeks in April, without UTI or dysuria. Intermittent since then, most recent a few wks ago. None since. Also has hemorrhoids that intermittently bleed, this happened this AM. However pt states prior stool was neg for blood during gross hematuria event and denies being from rectum at that time. On Xarelto Urine cytology shows Atypical urothelial cells, favor reactive Cysto was negative for tumors or lesions. Pt no show for renal US with PVR - will reschedule for [facility]. Advised pt of importance of obtaining imaging. Unable to obtain CT scans due to severe claustrophobia, failed sedation, limited ability to lie supine due to severe emphysema, on O2. High risk anesthesia risks. Understands suboptimal evaluation given pt factors 2. Stress incontinence (N39.3: Stress incontinence (female) (male)) stated she does have urinary leakage, and have to wear 2 pads with standing. Worse when taking lasix, otherwise minimal to none. Does hold urine at times when doing jigsaw puzzle. Also discussed that the leakage could also be because she may not be completely emptying her bladder -Discussed Kegel exercises, and explained the proper way to do these pelvic exercises - unable to do so, would need formal PFPT -Timed voiding -Weight loss -Behavioral modifications -On exam today. Very high risk for procedures given anatomy, morbid obesity and positioning limitations in lithotomy. Cont conservative measures, consider referral to tertiary center in future Follow-up With When Contact Information Salvatore RODRIGUEZ, Lis Vega, URL, URO In 1 month Additional Instructions: with renal US Patient Education Hematuria, Adult I, Naz Roberto , personally scribed for Dr. Chase on 06/26/2022 09:43:22. . Documentation recorded by the scribe, Naz Roberto, accurately reflects the services(s) I performed and decisions made by me. Authenticated by Dr. Chase on 06/26/2022 10:00:40. Problem List/Pa (more content not included)... Normal [facility] Comment on above: Result Comment: Elec tronically Signed By: Lis Chase MD\.br\Date and Time Signed: 06/26/22 10:01 EDT\.br\Electronically Co-Signed By: Naz Roberto\.br\Date and Time Co-Signed: 06/26/22 09:43 EDT ECHOCARDIO M/2D COMPLETEon 0 06-22-2022 ECHOCARDIO M/2D COMPLETE Patient: DIANA OLIVER Exam Date: 06/22/2022 : 1955 Gender:F Ordering : [facility] Admission #: [id number] Family : Order #: [id number] CLICK HERE TO VIEW EXAM ECHOCARDIOGRAM REPORT PROCEDURE: CARDIO PULMONARY ECHOCARDIO M/2D COMP INDICATIONS: Paroxysmal atrial fibrillation, hypertension, diabetes, COPD, emphysema COMPARISON: None. DESCRIPTION: COMPLETE ECHOCARDIOGRAM Real-time transthoracic echocardiography with 2D, M-mode, spectral and color flow Doppler performed. QUALITY: Technically difficult study due to patient's condition. Recommend contrast study to further exam the left ventricular borders. 62 300# BP 128/72 HR 93 LEFT VENTRICLE: Normal chamber size. Mild concentric left ventricular hypertrophy. Left ventricular systolic function is difficult to assess due to poor sound transmission and rhythm, but appears at the lower limits of normal. LV EF: Lower limits of normal left ventricular ejection fraction, (50-55%). DIASTOLIC: Not adequately assessed due to heart rhythm. ATRIAL SEPTUM: LEFT ATRIUM: Moderate dilatation. RIGHT ATRIUM: Mild dilatation. RIGHT VENTRICLE: Normal chamber size. Systolic function appears normal. TRICUSPID VALVE: Normal mobility and thickness. No stenosis with trivial regurgitation. MITRAL VALVE: Normal mobility and thickness. No evidence of mitral valve stenosis. Mild mitral annular calcification. No mitral regurgitation. AORTIC VALVE: Normal trileaflet appearance. No visible sclerosis. Normal leaflet mobility. No evidence of aortic valve stenosis. No aortic regurgitation. AORTIC ROOT: Normal diameter and appearance. PULMONIC VALVE: Not well visualized. No stenosis. No regurgitation. PERICARDIUM: No evidence of pericardial effusion. IVC: PLEURA: IVC is normal in size, does not collapse. CONCLUSION: 1. Left ventricular systolic function is difficult to assess due to poor sound transmission and rhythm, but appears at the lower limits of normal. LVEF is estimated at 50 to 55%. 2. Right ventricular systolic function appears normal. 3. No evidence of significant valvular dysfunction. 4. No pericardial effusion. 5. Administration of echo contrast would help better assess ventricular function. Dictated by: Kuldip Sanchez M.D. on 06/22/2022 at 14:50 Approved by: Kuldip Sanchez M.D. on 06/22/2022 at 14:57 Normal [facility] Formson 06-11-2022 Forms [id number]:127 Normal [facility] Urine Cytology ( Labs)on 0 06-11-2022 Urine Cytology Diagnosis Info Invalid Interpretation Code [facility] Comment on above: Result Comment: A:Ur ine,Urine:Voided Interpretation - Adequate cellularity for evaluation. MicroScopic Description - Rare single and clusters of mildly to moderately atypical urothelial cells; this may represent a reactive process, but neoplasm cannot be excluded. Clinical correlation is indicated. Adequacy - Adequate cellularity for evaluation. Gross Description Site ID:A color Yellow fixative Alcohol Specimen designated Urine received in alcohol preservative and labeled with the patient?s name, consists of 40ml clear yellow fluid. One non-electronics production supervisor cytology slide prepared. Electronically signed by : on: 06/11/2022 10:24:40 Performed By: #### 1 [id number] #### [facility] [address] [place] [id number] Ambulatory Visit Summaryon 0 06-06-2022 Ambulatory Visit Summary DIANA OLIVER :1955 Visit Date:06/06/2022 Ambulatory Visit Instructions Your Diagnosis Gross hematuria Anticoagulated Former smoker Stress incontinence Tests Performed Urnls Dip Stick Auto w/o Microscopy POC 44998 US Bladder -- Results Pending -- US Renal -- Results Pending -- Please visit your patient portal for your results or contact your primary care physician. Your Care Team Attending Physician - Lis Chase MD Primary Care Physician - JESSY PATEL DO This Is Your Medications List cephalexin (Keflex 500 mg Cap) Contact prescribing physician if questions or concerns albuterol furosemide lisinopril metformin metoprolol rivaroxaban (Xarelto) spironolactone Discharge Vitals Height 153.0 cm Height 153 cm Weight 157.0 kg Weight 157 kg BMI 67.07 What to do next Scheduled Follow-Up Appointments Saturday 9:00 AM EDT With: Salvatore RODRIGUEZ, Lis Vega Where: [facility] ED Note-Physicianon 06-06-20 ED Note-Physician [id number] .[id number]:127 Normal [facility] Patient Educationon 06-06-20 Patient Education Urology Hematuria, Adult Hematuria is blood in the urine. Blood may be visible in the urine, or it may be identified with a test. This condition can be caused by infections of the bladder, urethra, kidney, or prostate. Other possible causes include: ? Kidney stones. ? Cancer of the urinary tract. ? Too much calcium in the urine. ? Conditions that are passed from parent to child (inherited conditions). ? Exercise that requires a lot of energy. Infections can usually be treated with medicine, and a kidney stone usually will pass through your urine. If neither of these is the cause of your hematuria, more tests may be needed to identify the cause of your symptoms. It is very important to tell your health care provider about any blood in your urine, even if it is painless or the blood stops without treatment. Blood in the urine, when it happens and then stops and then happens again, can be a symptom of a very serious condition, including cancer. There is no pain in the initial stages of many urinary cancers. Follow these instructions at home: Medicines ? Take srbk-xan-tfunvbi and prescription medicines only as told by your health care provider. ? If you were prescribed an antibiotic medicine, take it as told by your health care provider. Do not stop taking the antibiotic even if you start to feel better. Eating and drinking ? Drink enough fluid to keep your urine clear or pale yellow. It is recommended that you drink 3?4 quarts (2.8?3.8 L) a day. If you have been diagnosed with an infection, it is recommended that you drink cranberry juice in addition to large amounts of water. ? Avoid caffeine, tea, and carbonated beverages. These tend to irritate the bladder. ? Avoid alcohol because it may irritate the prostate (men). General instructions ? If you have been diagnosed with a kidney stone, follow your health care provider's instructions about straining your urine to catch the stone. ? Empty your bladder often. Avoid holding urine for long periods of time. ? If you are female: ? After a bowel movement, wipe from front to back and use each piece of toilet paper only once. ? Empty your bladder before and after sex. ? Pay attention to any changes in your symptoms. Tell your health care provider about any changes or any new symptoms. ? It is your responsibility to get your test results. Ask your health care provider, or the department performing the test, when your results will be ready. ? Keep all follow-up visits as told by your health care provider. This is important. Contact a health care provider if: ? You develop back pain. ? You have a fever. ? You have nausea or vomiting. ? Your symptoms do not improve after 3 days. ? Your symptoms get worse. Get help right away if: ? You develop severe vomiting and are unable take medicine without vomiting. ? You develop severe pain in your back or abdomen even though you are taking medicine. ? You pass a large amount of blood in your urine. ? You pass blood clots in your urine. ? You feel very weak or like you might faint. ? You faint. Summary ? Hematuria is blood in the urine. It has many possible causes. ? It is very important that you tell your health care provider about any blood in your urine, even if it is painless or the blood stops without treatment. ? Take dszk-zor-frnjcmm and prescription medicines only as told by your health care provider. ? Drink enough fluid to keep your urine clear or pale yellow. This information is not intended to replace advice given to you by your health care provider. Make sure you discuss any questions you have with your health care provider. Document Released: 10/14/2006 Document Revised: 03/09/2020 Document Reviewed: 11/16/2017 Else[employer] Patient Education ? 2019 [employer] Normal [facility] Urine Cytology ([facility])on 06-06-2022 Method of Extraction Bladder Urine Normal [facility] Comment on above: Performed By: #### 1 [id number] #### [facility] [address] [facility] [place] [address] Number of Jars 1 Invalid Interpretation Code [facility] Comment on above: Performed By: #### 1 [id number] #### [facility] [address] [place] [address] Specimen Clean Catch Normal [facility] Comment on above: Performed By: #### 1 [id number] #### [facility] [address] [place] [address] Type of Service Technical Only Normal [facility] Comment on above: Performed By: #### 1 [id number] #### [facility] [address] [place] [address] Urology Office/Clinic Noteon 06-06-2022 Urology Office/Clinic Note Chief Complaint New Patient Gross hematuria. HPI Staff New Patient Diana is a 67 y/o female here for gross hematuria. Pt states that she visibly saw blood in her urine for two weeks in April. Pt was told it was coming from her rectum but she does not believe that it is, because she states someone else told pt that it wasn't from her rectum. Pt states that she saw blood this morning. Pt had a hysterectomy when she was 24. Pt was a smoker for 32 years. Pt is on a water pill and a blood thinner. Pt denies every having a kidney stone, pt denies any recurrent UTIs. Pt states that when she saw the blood it was bright red but she never saw any blood clots. Pt was unable to provide us with a urine specimen today. Dysuria: _denies Incomplete bladder emptying: _yes Hematuria: _yes Frequency: _4-6 times every hour, states they think its because of the water pill Urgency: _severe Nocturia: _2x Stream: _steady Leaking: _yes Post void dripping: _denies Wearing pads/ Depends: _yes when she goes places Urge incontinence: _yes Stress incontinence: _yes Incontinence without Sensory Awareness: _denies Abdominal pain: _denies Flank pain: _denies Sexual complaints: _ History of Present Illness Tests Reviewed: Reviewed UA. I have reviewed and verified the staff HPI to be accurate for this encounter. There have been no associated fever, chills, flank pain, or blood in the urine. Denies any urinary infections since last encounter. Review of Systems PHQ Score Initial Depression Screen Score: 0 ROS - Provider Constitutional: denies weight loss, denies hot flashes. Eyes: denies eye problems. Gastrointestinal: denies nausea, denies vomiting. Cardiovascular: denies chest pain or angina. Integumentary: no dryness Musculoskeletal: denies musculoskeletal symptoms. ENMT: denies otolaryngeal symptoms. Respiratory: moderate shortness of breath, onO2 Heme/Lymph: denies easy bleeding tendency, denies easy bruising tendency. Psychiatric: no confusion, no anxiety. Genitourinary: see HPI Physical Exam Vitals & Measurements HT: 153.0 cm HT: 153 cm WT: 157.0 kg WT: 157 kg BMI: 67.07 General Appearance: alert , no acute distress, well nourished, well developed female. Ambulates with roller walker Head: normocephalic . Eyes: normal orbit and globe. ENMT: normal examination of external ears. Chest: symmetric chest rise, respirations non labored . On supplemental O2 Cardiovascular: regular rate and rhythm. Abdomen: soft, non distended, no tenderness, significant overlying pannus Genitourinary: bladder nonpalpable, no flank tenderness. Skin: warm, dry, no bruising. Psychiatric: cooperative, affect appropriate for age, normal judgement, euthymic mood. Assessment/Plan 67yo F self referral with gross hematuria since April. Previously seen at [facility] ER, no records to review. [facility] cervical cancer s/p hysterectomy age 26, PAYTON/CPAP, Afib on Xarelto and Lasix. 1. Gross hematuria (R31.0: Gross hematuria) UA today shows moderate blood Pt states that she visibly saw blood in her urine for two weeks in April, without UTI or dysuria. Intermittent since then, most recent was last week Also has hemorrhoids that intermittently bleed, this happened this AM. However pt states prior stool was neg for blood during gross hematuria event and denies being from rectum at that time. Very claustrophobic/anxiet y with CT scanner, prior attempt with sedation did not work, IM injection wore off x 2. High risk for anesthesia given O2 dependent, PAYTON (prev not compliant with CPAP). Gets hives with IV contrast. Discussed recommended workup for gross hematuria including upper tract imaging, cystoscopy and urine cytology. After discussion of risks/benefits, pt agreed to proceed with: -Renal and bladder US W/ PVR -Local cystoscopy. Prophy ABX for cysto was sent to pt's pharmacy. -Urine cytology today Discussed options. The patient is aware that a distinct etiology of the hematuria may not be clear upon conclusion of the workup. Will initiate hematuria workup to include upper urinary tract imaging, as well as evaluation of the urinary cells with urine cytology and possible a FISH test. A cystoscopy will be scheduled to rule out lower urinary tract pathology. The rationale for this workup has been discussed, and all questions have been answered. Informed consent will be obtained. Prophylactic antibiotics will be given. The risks and benefits for cystoscopy have been discussed. The risks include bleeding, infection, and irritation of the bladder and urinary channel, among others. The patient, after being informed of procedural details and after questions have been answered, wishes to proceed. Full informed consent has been obtained. Will order Local anesthesia. Ordered: Urnls Dip Stick Auto w/o Microscopy POC 32819 Urology Procedure Order US Bladder US Renal 2. 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 Normal [facility] Comment on above: Result Comment: Elec tronically Signed By: Lis Chase MD\.br\Date and Time Signed: 06/06/22 10:27 EDT\.br\Electronically Co-Signed By: Sharyn Cortes\.br\Date and Time Co-Signed: 06/06/22 10:03 EDT Basic Metabolic Panelon 12-27 Calcium [Mass/Vol] 8.9 mg/dL Normal 8.2-10.2 [facility] Comment on above: Performed By: #### B MP #### [facility] [address] Chloride [Moles/Vol] 90 mmol/L Low 95-114 [facility] Comment on above: Performed By: #### B MP #### [address] CO2 [Moles/Vol] 31.2 mmol/L High 22.0-30.0 [facility] Comment on above: Performed By: #### B MP #### [address] Creatinine [Mass/Vol] 0.75 mg/dL Normal 0.44-1.03 [facility] Comment on above: Performed By: #### B MP #### [address] Creatinine Clr Calc Pharmacy 104.99 [facility] Comment on above: Result Comment: PERF ORMED BY: [place] [address] PATHOLOGIST WING COMMANDER FIFI CASEY M.D. Performed By: #### B MP #### [address] Estimated GFR ( Nova > 60 [facility] Comment on above: Result Comment: GFR estimated reference range: According to KDOQI guidelines, <60 ml/min/1.73m2 is sufficient to diagnose a patient with chronic kidney disease. Performed By: #### B MP #### [address] Estimated GFR (Non- Am > 60 [facility] Comment on above: Performed By: #### B MP #### [address] Glucose [Mass/Vol] 145 mg/dL High 70-100 [facility] Comment on above: Result Comment: [place] om Glucose Reference Range is dependent on time and content of last meal. Glucose of more than 200 mg/dL in a nonstressed, ambulatory subject supports the diagnosis of Diabetes Mellitus. ADA recommended reference range Performed By: #### B MP #### [address] Potassium [Moles/Vol] 4.3 mmol/L Normal 3.5-5.1 [facility] Comment on above: Performed By: #### B MP #### [facility] [address] [place] [address] [place] Sodium [Moles/Vol] 135 mmol/L Low 136-146 [facility] Comment on above: Performed By: #### B MP #### [facility] [address] [place] [address] [place] Urea nitrogen [Mass/Vol] 18 mg/dL Normal 9-23 [facility] Comment on above: Performed By: #### B MP #### [facility] [address] [place] [address] [place] Creatinine and Glomerular fi ltration rate.predicted panel (S/P/Bld)Ordered By: Rafat Vences on 01-20-2022 Creatinine [Mass/Vol] 0.75 mg/dL 0.44-1.03 [facility] Estimated glomerular filtrat ion rate (GFR) non- AmericanOrdered By: Rafat Vences on 01-20-2022 GFR/1.73 sq M.predicted among non-blacks MDRD (S/P/Bld) [Vol rate/Area] > 60 mL/Min [facility] No Panel InformationOrdered By: Rafat Vences on 01-20-2022 Estimated GFR () > 60 mL/Min [facility] Comment on above: GFR estimated refere nce range: According to KDOQI guidelines, <60 ml/min/1.73m2 is sufficient to diagnose a patient with chronic kidney disease. Pharmacy Creatinine Clearance (Chem 104.99 [facility] Serum or plasma calcium john urement (mass/volume)Ordered By: Rafat Vences on 01-20-2022 Calcium [Mass/Vol] 8.9 mg/dL 8.2-10.2 [facility] Serum or plasma chloride sushma surement (moles/volume)Ordered By: Rafat Vences on 01-20-2022 Chloride [Moles/Vol] 90 mmol/L 95-114 [facility] Serum or plasma glucose john urement (mass/volume)Ordered By: Rafat Vences on 01-20-2022 Glucose [Mass/Vol] 145 mg/dL 70-100 [facility] Comment on above: ADA recommended refe rence rangeRandom Glucose Reference Range is dependent on time and content of last meal. Glucose of more than 200 mg/dL in a nonstressed, ambulatory subject supports the diagnosis of Diabetes Mellitus. Serum or plasma potassium me asurement (moles/volume)Ordered By: Rafat Vences on 01-20-2022 Potassium [Moles/Vol] 4.3 mmol/L 3.5-5.1 [facility] Serum or plasma sodium measu rement (moles/volume)Ordered By: Rafat Vences on 01-20-2022 Sodium [Moles/Vol] 135 mmol/L 136-146 [facility] Serum or plasma total carbon dioxide measurement (moles/volume)Ordered By: Rafat Vences on 01-20-2022 CO2 [Moles/Vol] 31.2 mmol/L 22.0-30.0 [facility] Serum or plasma urea nitroge n measurement (mass/volume)Ordered By: Rafat Vences on 01-20-2022 Urea nitrogen [Mass/Vol] 18 mg/dL 9 [facility] Albumin [Mass/volume] in Ser um or PlasmaOrdered By: Zane Zuniga on 01-19-2022 Albumin [Mass/Vol] 3.4 g/dL 3.2-5.5 [facility] Comprehensive Metabolic Pane samuel 01-19-2022 Albumin [Mass/Vol] 3.4 g/dL Normal 3.2-5.5 [facility] Comment on above: Performed By: #### C ALEK, MG #### [address] Albumin/Globulin [Mass ratio] 1.0 {ratio} Normal [facility] Comment on above: Performed By: #### C MP MG #### [facility] [address] [place] [address] [place] ALP [Catalytic activity/Vol] 45 U/L Normal 32-92 [facility] Comment on above: Performed By: #### C MP, MG #### [facility] [address] [place] [address] [place] ALT [Catalytic activity/Vol] 19 U/L Normal 10-60 [facility] Comment on above: Performed By: #### C MP, MG #### [facility] [address] AST [Catalytic activity/Vol] 21 U/L Normal 10-42 [facility] Comment on above: Performed By: #### C MP, MG #### [facility] [address] Bilirubin [Mass/Vol] 0.6 mg/dL Normal 0.3-1.2 [facility] Comment on above: Performed By: #### C MP, MG #### [facility] [address] Calcium [Mass/Vol] 9.0 mg/dL Normal 8.2-10.2 [facility] Comment on above: Performed By: #### C MP, MG #### [facility] [address] [place] [address] [place] Chloride [Moles/Vol] 99 mmol/L Normal 95-114 [facility] Comment on above: Performed By: #### C MP, MG #### [facility] [address] [place] [address] [place] CO2 [Moles/Vol] 29.4 mmol/L Normal 22.0-30.0 [facility] Comment on above: Performed By: #### C MP, MG #### [facility] [address] [place] [address] [place] Creatinine [Mass/Vol] 0.64 mg/dL Normal 0.44-1.03 [facility] Comment on above: Performed By: #### C MP, MG #### [facility] [address] [place] [address] [place] Creatinine Clr Calc Pharmacy 106.56 [facility] Comment on above: Performed By: #### C MP, MG #### [facility] [address] Estimated GFR ( Nova > 60 Normal [facility] Comment on above: Result Comment: GFR estimated reference range: According to KDOQI guidelines, <60 ml/min/1.73m2 is sufficient to diagnose a patient with chronic kidney disease. Performed By: #### C MP, MG #### [address] Estimated GFR (Non- Am > 60 Normal [facility] Comment on above: Performed By: #### C MP, MG #### [address] Globulin (S) [Mass/Vol] 3.5 g/dL Normal [facility] Comment on above: Performed By: #### C MP, MG #### [address] Glucose [Mass/Vol] 214 mg/dL High 70-100 [facility] Comment on above: Result Comment: [place] Glucose Reference Range is dependent on time and content of last meal. Glucose of more than 200 mg/dL in a nonstressed, ambulatory subject supports the diagnosis of Diabetes Mellitus. ADA recommended reference range Performed By: #### C MP, MG #### [address] Potassium [Moles/Vol] 4.6 mmol/L Normal 3.5-5.1 [facility] Comment on above: Performed By: #### C MP, MG #### [address] Protein [Mass/Vol] 6.9 g/dL Normal 6.1-7.9 [facility] Comment on above: Performed By: #### C MP, MG #### [address] Sodium [Moles/Vol] 139 mmol/L Normal 136-146 [facility] Comment on above: Performed By: #### C MP, MG #### [address] Urea nitrogen [Mass/Vol] 9 mg/dL Normal 9-23 [facility] Comment on above: Performed By: #### C MP, MG #### [address] [facility] echo transthoracicon [facility] echo transthoracic [facility] [place] [address] [place] [address] Echocardiogram Signed Patient: Diana Oliver MR#: [id number] : 1955 Acct:[id number] Age/Sex: 66 / F ADM Date: 01/18/22 Loc: Room: [address] [place] [address] Type: DIS IN Attending Dr: Rafat Vences MD Ordering Provider: Zane Ram MD Date of Service: 01/19/22 [facility] echo transthoracic: cardiomegaly, cardiomyopathy Copies to: MD Zain Agosto MD, [facility] Height: 62 in Weight: 372 lb Performed By: SABINO Brice BSA: 2.5 m2 BP: 110/68 mmHg HR: 64 Reason For Study: cardiomegaly, cardiomyopathy History: Afib, asthma, COPD, DM, HTN, obesity, former smoker Interpretation Summary Mild to moderate concentric left ventricular hypertrophy. Ejection Fraction = 60-65%. A variety of Doppler measurements indicate impaired left ventricular relaxation, which is associated with grade I/IV or mild diastolic dysfunction. The left atrium appears mildly dilated. There is no prior echocardiogram noted for this patient. Procedure/Quality: A two-dimensional transthoracic echocardiogram with color flow, Doppler and injection of contrast agent Definity was performed. The study was technically suboptimal in quality due to poor acoustic windows . There is no prior echocardiogram noted for this patient. Left Ventricle: Mild to moderate concentric left ventricular hypertrophy. Left ventricular systolic function is normal. Ejection Fraction = 60-65%. A variety of Doppler measurements indicate impaired left ventricular relaxation, which is associated with grade I/IV or mild diastolic dysfunction. Left Atrium: The left atrium appears mildly dilated. Right Atrium: The right atrium appears normal in size. Right Ventricle: The right ventricular size, thickness and function are normal. Aortic Valve: The aortic valve is not well visualized. Mitral Valve: The mitral valve is not well visualized. Tricuspid Valve: The tricuspid valve is not well visualized. Pulmonic Valve: The pulmonic valve is not well visualized. Arteries: The aortic root is normal size. Pericardium/Pleura: No pericardial effusion seen. There is no pleural effusion. IVC/Hepatic Viens: The inferior vena cava was not visualized during the exam. Miscellaneous: No thrombus, vegetation or mass is seen. Measurements with Normals IVSd: 1.6 cm (0.7-1.1 cm)LVIDd: 4.8 cm (3.7-5.4 cm) LVPWd: 1.3 cm (0.7-1.1 cm)LVIDs: 2.7 cm (2.3-3.6 cm) LA dimension: 4.8 cm(2.3-4.0 cm)Ao root diam: 3.0 cm(2.0-3.6 cm) Doppler with Normals MV E max deepti: 73.3 cm/sec(0.8-1.3m/s) MV A max deepti: 78.8 cm/sec(0.0-0.0m/s) MV E/A: 0.93 (<1.5) MMode/2D Measurements Calculations FS: 43.6 % Ao root area: 7.1 cm2 EDV(Teich): 107.8 ml ESV(Teich): 27.3 ml EF(Teich): 74.7 % Doppler Measurements Calculations MV dec time: 0.34 sec E/E' lat: 7.9 MV dec slope: 214.6 cm/sec2 E/E' med: 9.0 Transcribed By: SCV Performed At: 01/19/22 1118 Signed By: Zain Ken MD, [facility] 01/19/22 1407 [facility] Globulin Calc (S) [Mass/Vol] Ordered By: Zane Zuniga on 01-19-2022 Globulin (S) [Mass/Vol] 3.5 g/dL [facility] Laboratory - Chemistry and C hemistry - challengeOrdered By: Zane Zuniga on 01-19-2022 Magnesium [Mass/Vol] 2.0 mg/dL 1.6-2.6 [facility] Magnesiumon 01-19-2022 Magnesium [Mass/Vol] 2.0 mg/dL Normal 1.6-2.6 [facility] Comment on above: Result Comment: PERF ORMED BY: [place] [address] PATHOLOGIST WING COMMANDER FIFI CASEY M.D. Performed By: #### C MP, MG #### [address] Protein [Mass/volume] in Ser um or PlasmaOrdered By: Zane Zuniga on 01-19-2022 Protein [Mass/Vol] 6.9 g/dL 6.1-7.9 [facility] Serum or plasma alanine benitez otransferase measurement without P-5'-P (enzymatic activiOrdered By: Zane Zuniga on 01-19-2022 ALT No additional P-5'-P [Catalytic activity/Vol] 19 U/L 10-60 [facility] Serum or plasma albumin/glob ulin mass ratioOrdered By: Zane Zuniga on 01-19-2022 Albumin/Globulin [Mass ratio] 1.0 {ratio} [facility] Serum or plasma alkaline saeid sphatase measurement (enzymatic activity/volume)Ordered By: Zane Zuniga on 01-19-2022 ALP [Catalytic activity/Vol] 45 U/L 32-92 [facility] Serum or plasma aspartate am inotransferase measurement (enzymatic activity/volume)Ordered By: Zane Zuniag on 01-19-2022 AST [Catalytic activity/Vol] 21 U/L 10-42 [facility] Serum or plasma total biliru bin measurement (mass/volume)Ordered By: Zane Zuniga on 01-19-2022 Bilirubin [Mass/Vol] 0.6 mg/dL 0.3-1.2 [facility] Troponin I High Sensitivityo n 01-19-2022 Troponin I High Sensitivity 4 pg/mL Normal 0-15 [facility] Comment on above: Result Comment: PERF ORMED BY: [place] [address] PATHOLOGIST WING COMMANDER FIFI CASEY M.D. Performed By: #### H S TROP #### [place] [id number] [place] Troponin I High Sensitivity 4 pg/mL Normal 0-15 [facility] Comment on above: Result Comment: PERF ORMED BY: [place] [address] PATHOLOGIST WING COMMANDER FIFI CASEY M.D. Performed By: #### H S TROP #### [facility] [address] [place] [address] Troponin I.cardiac [Mass/vol ume] in Serum or Plasma by High sensitivity methodOrdered By: Zane Zuniga on 01-19-2022 Troponin I.cardiac High sensitivity method [Mass/Vol] 4 pg/mL 0-15 [facility] XR chest 1V portableon 01-19 XR chest 1V portable [facility] Main [place] [address] [place] [address] XRay Report Signed Patient: Diana Oliver MR#: [id number] : 1955 Acct:[id number] Age/Sex: 66 / F ADM Date: 01/18/22 Loc: Room: [address] [place] [address] Type: ADM IN Attending Dr: Rafat Vences MD Ordering Provider: Zane Ram MD Date of Service: 01/19/22 XR/XR chest 1V portable: SOB Copies to: MD Rafat Agosto MD Plain film chestsingle view HISTORY:Shortness of breath. COMPARISON:01/18/22 FINDINGS: Cardiac, mediastinal and hilar silhouettes are stable. Mild the RIGHT hemithorax volume loss. Consolidation in the RIGHT perihilar region present. This may correspond with partial RIGHT upper lobe atelectasis/collapse. No large pleural effusion. No pneumothorax. Bony structures are intact. XR/XR chest 1V portable IMPRESSION: Decreasing RIGHT hemithorax volume loss with perihilar consolidation may correspond with partial RIGHT upper lobe atelectasis/collapse. No pneumothorax. Continued interstitial prominence. Impression dictated by: Srinath Maki M.D.01/19/2022 8:16 AM Dictation Location: [facility] Transcribed By: [facility] 01/19/2216 Dictated By: Srinath Maki DO 01/19/2211 Signed By: 01/19/2216 Normal [facility] Vital Signs Date Time Vital Sign Value Performing Clinician Faci jyoti 06-26-2022 09:01-0400 Blood Pressure Location Lis Lue [facility] 06-26-2022 09:01-0400 Diastolic blood pressure 77 mm[Hg] Lis Lue [facility] 06-26-2022 09:01-0400 Heart rate 84 /min Lis Lue [facility] 06-26-2022 09:01-0400 Systolic blood pressure 118 mm[Hg] Lis Lue [facility] 01-20-2022 14:08-0400 Inhaled oxygen flow rate 2 L/min [facility] 01-20-2022 12:15-0400 Heart rate 68 /min [facility] 01-20-2022 12:15-0400 Respiratory rate 18 /min [facility] 01-20-2022 11:39-0400 Body temperature 97.8 [degF] [facility] 01-20-2022 11:39-0400 Diastolic blood pressure 57 mm[Hg] [facility] 01-20-2022 11:39-0400 SaO2% (BldA) [Mass fraction] 98 % [facility] 01-20-2022 11:39-0400 Systolic blood pressure 97 mm[Hg] [facility] 01-20-2022 06:00-0400 Body weight 165.[address] [facility] 01-19-2022 14: Body height 157.[address] [facility] 01-19-2022 03: Body mass index (BMI) [Ratio] 68.1 kg/m2 [facility] Encounters Encounter Date Encounter Type Care Provider Facility Start: 01-06-2024 Telephone encounter Nikky mireles MA [facility] Start: 12-31-2023 End: 01-01-2024 ambulatory MATHIEU DONTE [facility] Start: 12-12-2023 End: 12-13-2023 ambulatory JACQUELIN GOLDMAN [facility] Start: 12-12-2023 End: 12-13-2023 Emergency department patient visit ROSALINO MARRERO [facility] Start: 12-12-2023 End: 12-12-2023 ambulatory [facility] Start: 12-06-2023 End: 12-06-2023 ambulatory [facility] Start: 11-19-2023 End: 11-20-2023 ambulatory JESSY Tai NIXSDAmber [facility] Start: 11-07-2023 End: 11-10-2023 Evaluation and management of inpatient [facility] Start: 11-07-2023 End: 11-11-2023 Emergency department patient visit PRIETO NG [facility] Start: 07-02-2023 End: 07-02-2023 ambulatory [facility] Start: 05-21-2023 End: 05-21-2023 ambulatory [facility] Start: 03-26-2023 End: 03-26-2023 ambulatory [facility] Start: 08-26-2022 Encounter for preprocedural laboratory examination DEEPA COTA [facility] Start: 08-23-2022 End: 08-24-2022 ambulatory DEEPA COTA Facility:[facility] Start: 08-23-2022 End: 08-24-2022 Encounter for preprocedural laboratory examination DEEPA COTA Facility:[facility] Start: 07-25-2022 End: 07-26-2022 ambulatory Lis RadhaCody Salvatore Facility:[facility] Start: 07-10-2022 ambulatory JESSYTRIP JUANG Facilit y:[facility] Start: 07-05-2022 End: 07-06-[address] RAMY MIXON Facility:[facility] Start: 06-27-2022 ambulatory Lis M. Lue Facility:[facility] Start: 06-26-2022 End: 06-27-2022 ambulatory Lis M. Matthewe Facility:[facility] Start: 06-26-2022 End: 06-26-2022 Patient encounter procedure Lis M. Salvatore [facility] J[facility] Start: 06-22-2022 End: 06-23-2022 ambulatory RILEY MAYO Facility:[facility] Start: 06-06-2022 End: 06-07-2022 ambulatory Lisjanuary Chase Facility:[facility] Ibarra Start: 06-06-2022 End: 06-06-2022 Patient encounter procedure Lis Chase [facility] Fred Start: 06-05-2022 ambulatory JESSY NIXLAG Facilit y:RIMMA Vargas Start: 01-18-2022 End: 01-20-2022 Evaluation and management of inpatient Rafat Vences Facility:[facility] Start: 01-18-2022 End: 01-20-2022 Evaluation and management of inpatient [facility] Procedures Date Procedure Procedure Detail Performing Clinician Start: 06-26-2022 Cystoscopy Lis Chase Start: 01-19-2022 Plain chest X-ray Plan of Treatment Date Care Activity Detail Author Start: 12-30-2024 Adult BMI Screening Adult BMI Screening [facility] Start: 12-11-2024 Tobacco Screening Tobacco Screening [facility] Start: 2020 Fall Risk Screening Fall Risk Screening [facility] Start: 11-29-2014 Administration of varicella zoster vaccine Zoster (Shingles) Vaccine (1 of 2) [facility] Start: 1974 DTaP,Tdap and Td Vaccines (1 - Tdap) DTaP,Tdap and Td Vaccines (1 - Tdap) [facility] Start: 1973 Adult BMI Follow Up Plan Adult BMI Follow Up Plan [facility] Start: 1973 Diabetic foot examination Diabetic Foot Exam [facility] Start: 1967 Depression Screening Depression Screening [facility] Start: 1955 Glaucoma screening Diabetic Ophthalmology Exam [facility] Start: 1955 Medicare Annual Wellness Visit Medicare Annual Wellness Visit [facility] Patient referral [facility] Work Phone: Immunizations Immunization Date Immunization Notes Care Provider Luis E singh 12-12-2023 pneumococcal polysaccharide vaccine, 23 valent Nikky Sahu MA [facility] 09-05-2022 Influenza, injectabl e, Madin Kellen Canine Kidney, preservative free, quadrivalent Nikky Sahu MA [facility] 09-01-2021 influenza virus vaccine, unspecified formulation Lis Lue [facility] 09-01-2021 influenza, injectabl e, quadrivalent, preservative free Nikky Sahu MA [facility] 08-18-2020 influenza virus vaccine, unspecified formulation Lis Lue [facility] 08-18-2020 Influenza, injectabl e, Madin Kellen Canine Kidney, preservative free, quadrivalent Nikky Sahu MA [facility] 08-12-2019 influenza virus vaccine, unspecified formulation Lis Lue [facility] 08-12-2019 Influenza, injectabl e, Madin Kellen Canine Kidney, preservative free, quadrivalent Nikky Sahu MA [facility] 08-14-2018 influenza virus vaccine, unspecified formulation Lis Lue [facility] 08-14-2018 Influenza, injectabl e, Madin [place] Canine Kidney, preservative free, quadrivalent Nikky Sahu MA [facility] 08-14-2018 pneumococcal polysaccharide vaccine, 23 valent Lis Lue [facility] 08-07-2017 influenza virus vaccine, unspecified formulation Lis Lue [facility] 08-07-2017 influenza, seasonal, injectable, preservative free Nikky Sahu MA [facility] [facility] 08-15-2016 influenza virus vaccine, unspecified formulation Lis Lue [facility] 08-15-2016 influenza, seasonal, injectable, preservative free Nikky Sahu MA [facility] 08-24-2015 influenza virus vaccine, unspecified formulation Lis Lue [facility] 08-24-2015 influenza, seasonal, injectable, preservative free Nikky Sahu MA [facility] 10-04-2014 zoster vaccine, live Lis L ue [facility] 10-04-2014 zoster vaccine, unspecified formulation Nikky Sahu MA [facility] 07-23-2014 influenza virus vaccine, unspecified formulation Lis Lue [facility] 07-23-2014 influenza, seasonal, injectable Nikky Sahu MA [facility] 08-31-2013 influenza virus vaccine, unspecified formulation Lis Lue [facility] 08-31-2013 influenza, seasonal, injectable Nikky Sahu MA [facility] 08-04-2012 influenza virus vaccine, unspecified formulation Lis Lue [facility] 08-04-2012 influenza, seasonal, injectable Nikky Sahu MA [facility] [employer] [facility] 07-17-2011 influenza virus vaccine, unspecified formulation Lis Chase [facility] 07-17-2011 influenza, seasonal, injectable Nikky Sahu MA [facility] NEGATED: Highlighted row has not occurred!06-26-2022 SARS-CoV-2 mRNA (tozinameran 5y-11y) vaccine Lis Lulivan [facility] NEGATED: Highlighted row has not occurred!06-06-2022 SARS-CoV-2 mRNA (tozinameran 5y-11y) vaccine Lis Lulivan [facility] Payers Date Payer Category Payer Self-pay [id number] 2021 Medicare [employer] ADV [id number] 2021-Present [phone] [address] [place] [address] [id number] 2021 Unknown [id number] 2020 Unknown [id number] 1955 Unknown [id number] 1955 Unknown [id number] [id number]3 1955 Unknown [id number] 2.16.840.1.196122.3.579.2.593 1955 Unknown [id number] 2.16.840.1.146908.3.579.2.727 1955 Unknown [id number] 2.16.840.1.756676.3.579.2.727 1955 Unknown [id number] 2.16.840.1.199221.3.579.2.727 1955 Unknown [id number] 2.16.840.1.105895.3.579.2.727 1955 Unknown [id number] 2.16.840.1.274245.3.579.2.128 6 1955 Unknown [id number] 2.16.840.1.141970.3.579.2.128 6 1955 Unknown [id number] 2.16.840.1.371966.3.579.2.128 6 1955 Unknown [id number] 2.16.840.1.561011.3.579.2.128 6 1955 Unknown [id number] 2.16.840.1.872478.3.579.2.128 6 1955 Unknown [id number] 2.16.840.1.618616.3.579.2.128 6 1955 Unknown [id number] 2.16.840.1.729232.3.579.2.128 6 1955 Unknown [id number] 2.16.840.1.873155.3.579.2.128 6 1955 Unknown [id number] 2.16.840.1.694070.3.579.2.128 6 Unknown Self Pay [id number] Unknown [id number] Social History Date Type Detail Facility Start: 01-19-2022 End: 03-18-2023 Tobacco smoking status NHIS Ex-smoker (finding) [facility] Start: 1955 Sex Assigned At Female [facility] Tobacco smoking status Never [facility] Start: 11-17-2020 End: 12-12-2023 Sex Assigned At Female [facility] End: 10-30-2000 [facility] End: 10-30-2000 History of tobacco use Cigarette Smoker [facility] [employer] [facility] Start: 03-18-2023 Tobacco use and exposure Smokeless tobacco non-user [facility] [employer] [facility] Start: 12-31-2023 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 (finding[facility] Start: 11-17-2020 End: 12-12-2023 History of Social function [facility] Has the [employer], or water company threatened to shut off services in your home in past 12Mo No [facility] [employer] Start: 03-18-2023 Gender identity Identifies as female gender (finding) [facility] Start: 03-18-2023 Sexual orientation Heterosexual (fin caro) [facility] Goals Date Patient Goal Desired Activity /State Personal health goal Comment on above: Formatting of this n ote might be different from the original. Evaluation of progress towards goal: under assessment Functional Status Date Assessment Result Facility 06-26-2022 Functional Status N/A [facility] 06-06-2022 Functional Status N/A [facility] 01-20-2022 Functional status Patient at Baseline [facility] Work Phone: Mental Status Date Assessment Result Facility 01-20-2022 Cognitive function Cognitive Sta tus Patient at Baseline [facility] Work Phone: Clinical Notes 01-19-2022 to 01-06-2024 Telephone Encounter - Nikky Sahu MA - 01/06/2024 9:15 AM EDTTelephone Encounter - Nikky Sahu MA - 01/06/2024 9:15 AM EDT Note Date & Type Note Facility 01-06-2024 Miscellaneous Notes Called pt to schedule yearly appt for RX refills. No Answer. MARLA. CHARLYW documented in this encounter [facility] 01-06-2024 Telephone encounter Note Called pt to schedule yearly appt for RX refills. No Answer. SHANNANOM. CHARLYW [facility] 12-06-2023 Note [facility] Consul [facility] Note Reason for visit: here for hospital follow up HPI: 68 yo female with a past medical history of Afib/ HTN/DM2 who presents today for follow up. Patient was recently hospitalized for COPD exacerbation, she states. She denies any cardiac issues. Patient denies any cardiac complaints or concerns. Patient denies any chest pain or worsening shortness of breath. Patient denies any lower extremity edema, orthopnea, or proximal nocturnal dyspnea. No near-syncope or syncope. No dizziness or lightheadedness. Patient previously had echo and stress test ordered. She declined both of these test, as she states that she is claustrophobic and cannot have these test done She did have recent echo 02/2023 whch showed low limits of normal LVEF. Medications: Xarelto, metoprolol 50 mg daily, Aldactone 25 mg daily, Lasix 40 mg daily, lisinopril 2.5 mg daily [facility] ER note for syncope 03/18/23 Hospital Course: H&P Reviewed. Diana Oliver is a 67 y.o. female who presents with evaluation of dizziness. Pt states her dizziness started on Saturday and is worse today. Pt admits to syncopal episode on Saturday. Pt also complains of shortness of breath, chest pain, diarrhea, blurred vision, cough, and chills. Pt claims she is on 2L Oxygen at home at baseline. Pt states the chest pain is mild and states she does not have any currently. Pt claims diarrhea is baseline for her. Pt denies any nausea, vomiting, dysuria, frequency, fever, rhinorrhea, and sore throat. Pt admits she recently changed her medications of Xarelto to Eliquis. Pt states she also does not have an inhaler. Pt claims to a hx of Afib and diabetes. Pt has known drug allergies. ----- 09/2022 HPI: Diana Oliver is a 68 y.o. year old with past medical history of a-fib, hypertension, dm2. She was scheduled for cardioversion for a-fib to be done on 09/13, when she arrived she had EKG done and was found to be in sinus bradycardia so cardioversion was aborted. She states she has been bradycardic and her PCP noted that as well at most recent visit. She has not felt like she has been in a-fib but has noticed herself be more fatigued especially after taking toprol XL. - Previous HPI per Dr. Cota 08/17/2022: HPI: Diana Oliver is a 67 y.o. year old with past medical history of Afib/ HTN/DM2 was seen for Afib. She was seen at [facility] in 01/2021 for SOB and was seen to be in Afib. She had a prior Holter after that which revealed non sustained AT vs Af but was predominently in SR with occ PVC. She notes HILL, she is in a wheelchair during visit. A few weeks ago she had some blood in her urine. This has cleared up. Holter monitor now has revealed AF all the time. She is not on any AAD and has not been cardioverted before. She denies CP, orthopnea, PND, LE edema, dizziness/LH, syncope. 3-day Holter monitor from 06/26/2022 to 06/29/2022 has revealed atrial fibrillation all the time. Occasional PVC was noted. The A. fib with ventricular rate was noted to range between 63 to 136 bpm 48Hr Holter 02/21/21 Non sustained AT vs Af but was predominently in SR with occ PVC PMHx: asthma, cervical CA, COPD, DM2, HTN, psoriasa, PAF, PAFlutter, obesity FMHx: father - heart disease, ?PM vs ICD; sister - afib Diet: diabetic diet, drinks water Caffeine: denies ETOH: denies Tobacco: denies Illicit drug use: denies Social: lives along, has a significant other Keny with her, 4 children (girls) Exercise: having PT/OT working with her at home TESTING: Echocardiogram 06/22/2022 shows EF of 55% with a moderately dilated left atrium with mild dilatation of the right atrium. ECHO (02/21/21): EF 55-60%, there is systolic flattening of the interventricular septum consistent with RV pressure overload, grade I DD, RV size is borderline, systolic function is normal, RVSP severely elevated at 73, RA 10 Carotid US 01/2021: <50% stenosis, antegrade vertebral artery flow, limited visualization of the carotid arteries PMH: Past Medical History: Diagnosis Date Atrial fibrillation ([facility]/HCC) COPD (chronic obstructive pulmonary disease) (CMS/HCC) Diabetes mellitus (CMS/HCC) Hypertension Sleep apnea PSH: No past surgical history on file. SH: Social Determinants of Health Tobacco Use: Medium Risk (04/08/2023) Patient History Smoking Tobacco Use: Former Smokeless Tobacco Use: Never Passive Exposure: Not on file Alcohol Use: Not on file Financial Resource Strain: Not on file Food Insecurity: Not on file Transportation Needs: Not on file Physical Activity: Not on file Stress: Not on file Social Connections: Not on file Intimate Partner Violence: Unknown (12/06/2023) [place] [facility] Fe (more content not included)... [facility] 12-06-2023 Note Patient here for 5 m o follow up HFpEF, chest pain, syncope, and PAF. She was never able to finish stress test ordered months ago. Patient was [facility] last month for acute on chronic respiratory failure. She denies recurrent syncope, lightheadedness, and bleeding on Eliquis. Denies chest pain. She had routine labs a few weeks ago. Review of Systems Constitutional: Positive for malaise/fatigue. Cardiovascular: Positive for dyspnea on exertion. Respiratory: Positive for cough. Musculoskeletal: Positive for arthritis and joint pain. Neurological: Positive for excessive daytime sleepiness. All other systems reviewed and are negative. [facility] 07-02-2023 Note [facility] Consul [facility] Note Reason for visit: here for hospital follow up s/p syncope , stress + 30d event monitor for SOB/chest pain HPI:She is here for follow-up regarding chest pain She was previously in the clinic 05/21/2023 for post ER visit for chest pain. She was having several episodes of chest pain with recent episode of syncope 02/2023. When previously seen by myself she refused ischemic eval and event monitor. When previously seen most recently she agreed for event monitor and stress test. Stress test was not completed due to past experience per patient. 30-day event monitor does not show any significant arrhythmia. Is not finalized by physician. It shows sinus rhythm to sinus bradycardia with no atrial ventricular ectopy. Sinus bradycardia as low as 40 bpm but this was nocturnal. No marked patient events. She had echocardiogram ordered but insurance refused. She did have recent echo 02/2023 which showed low limits of normal LVEF. Medications: Amiodarone, Xarelto, metoprolol 50 mg daily, Aldactone 25 mg daily, Lasix 40 mg daily, lisinopril 2.5 mg daily [facility] ER note for syncope 03/18/23 Hospital Course: H&P Reviewed. Diana Oliver is a 67 y.o. female who presents with evaluation of dizziness. Pt states her dizziness started on Saturday and is worse today. Pt admits to syncopal episode on Saturday. Pt also complains of shortness of breath, chest pain, diarrhea, blurred vision, cough, and chills. Pt claims she is on 2L Oxygen at home at baseline. Pt states the chest pain is mild and states she does not have any currently. Pt claims diarrhea is baseline for her. Pt denies any nausea, vomiting, dysuria, frequency, fever, rhinorrhea, and sore throat. Pt admits she recently changed her medications of Xarelto to Eliquis. Pt states she also does not have an inhaler. Pt claims to a hx of Afib and diabetes. Pt has known drug allergies. ----- 09/2022 HPI: Diana Oliver is a 68 y.o. year old with past medical history of a-fib, hypertension, dm2. She was scheduled for cardioversion for a-fib to be done on 09/13, when she arrived she had EKG done and was found to be in sinus bradycardia so cardioversion was aborted. She states she has been bradycardic and her PCP noted that as well at most recent visit. She has not felt like she has been in a-fib but has noticed herself be more fatigued especially after taking toprol XL. - Previous HPI per Dr. Cota 08/17/2022: HPI: Diana Oliver is a 67 y.o. year old with past medical history of Afib/ HTN/DM2 was seen for Afib. She was seen at [facility] in 01/2021 for SOB and was seen to be in Afib. She had a prior Holter after that which revealed non sustained AT vs Af but was predominently in SR with occ PVC. She notes HILL, she is in a wheelchair during visit. A few weeks ago she had some blood in her urine. This has cleared up. Holter monitor now has revealed AF all the time. She is not on any AAD and has not been cardioverted before. She denies CP, orthopnea, PND, LE edema, dizziness/LH, syncope. 3-day Holter monitor from 06/26/2022 to 06/29/2022 has revealed atrial fibrillation all the time. Occasional PVC was noted. The A. fib with ventricular rate was noted to range between 63 to 136 bpm 48Hr Holter 02/21/21 Non sustained AT vs Af but was predominently in SR with occ PVC PMHx: asthma, cervical CA, COPD, DM2, HTN, psoriasa, PAF, PAFlutter, obesity FMHx: father - heart disease, ?PM vs ICD; sister - afib Diet: diabetic diet, drinks water Caffeine: denies ETOH: denies Tobacco: denies Illicit drug use: denies Social: lives along, has a significant other Keny with her, 4 children (girls) Exercise: having PT/OT working with her at home TESTING: Echocardiogram 06/22/2022 shows EF of 55% with a moderately dilated left atrium with mild dilatation of the right atrium. ECHO (02/21/21): EF 55-60%, there is systolic flattening of the interventricular septum consistent with RV pressure overload, grade I DD, RV size is borderline, systolic function is normal, RVSP severely elevated at 73, RA 10 Carotid US 01/2021: <50% stenosis, antegrade vertebral artery flow, limited visualization of the carotid arteries PMH: Past Medical History: Diagnosis Date Atrial fibrillation (CMS/HCC) COPD (chronic obstructive pulmonary disease) (CMS/HCC) Diabetes mellitus (CMS/HCC) Hypertension Sleep apnea PSH: No past surgical history on file. SH: Social Determinants of Health Tobacco Use: Medium Risk (04/08/2023) Patient History Smoking Tobacco Use: Former Smokeless Tobacco Use: Never Passive Exposure: Not on file Alcohol Use: Not on file Financial Resource Strain: Not on file Food Insecurity: Not on (more content not included)... [facility] 07-02-2023 Note Patient here for [facility] low up event monitor. She was unable to tolerate lexiscan stress test, and repeat echo was denied by her insurance company. Denies chest pain and bleeding on Eliquis. She would like to discuss an alternative to Eliquis, as it's very expensive for her. Review of Systems Constitutional: Positive for malaise/fatigue. Cardiovascular: Positive for dyspnea on exertion and leg swelling. Musculoskeletal: Positive for arthritis and joint pain. Gastrointestinal: Positive for diarrhea. Neurological: Positive for excessive daytime sleepiness, dizziness and light-headedness. All other systems reviewed and are negative. [facility] 05-21-2023 Note Patient here for [facility] low up ED visit a few weeks ago for chest pain. She was also SOB and had palpitations with it. No recurrent chest pain. Says she's been having trouble breathing and it keeps her up at night. She is noncompliant with cpap therapy for PAY[place]. Outpatient stress test was discussed with her at [facility] she says. She refuses to have one done. [facility] 05-21-2023 Note [facility] Consul [facility] Note Reason for visit: ER follow up for chest pain HPI: 68 year-old female with a past medical history including atrial fibrillation, heart failure with preserved ejection fraction, hypertension presents to clinic today for follow-up after ER visit for chest pain. Patient has been seen in clinic several times for chest pain and a episode of syncope. She has previously denied any additional work-up. Today, patient states that she has not had chest pain since her emergency room visit. However, she said that previous to the ER visit, she was getting intermittent episodes. She has chronic shortness of breath. She denies any worsening lower extreme edema orthopnea. No paroxysmal nocturnal dyspnea. She has not had any recurrent syncope. Denies any additional complaints or concerns. She takes her medications as prescribed, denies any complications. Result Date: 03/19/2023 Left Ventricle: Systolic function is normal with an ejection fraction of 55-60%. Image quality is essentially uninterpretable. Grossly normal left ventricular size with probably mild concentric left ventricular hypertrophy and probably normal left ventricular systolic function. Transesophageal echocardiogram could be considered if echocardiographic evaluation cardiac structures is clinically indicated [facility] ER note for syncope 03/18/23 Hospital Course: H&P Reviewed. Diana Oliver is a 67 y.o. female who presents with evaluation of dizziness. Pt states her dizziness started on Saturday and is worse today. Pt admits to syncopal episode on Saturday. Pt also complains of shortness of breath, chest pain, diarrhea, blurred vision, cough, and chills. Pt claims she is on 2L Oxygen at home at baseline. Pt states the chest pain is mild and states she does not have any currently. Pt claims diarrhea is baseline for her. Pt denies any nausea, vomiting, dysuria, frequency, fever, rhinorrhea, and sore throat. Pt admits she recently changed her medications of Xarelto to Eliquis. Pt states she also does not have an inhaler. Pt claims to a hx of Afib and diabetes. Pt has known drug allergies. ----- 09/2022 HPI: Diana Oliver is a 68 y.o. year old with past medical history of a-fib, hypertension, dm2. She was scheduled for cardioversion for a-fib to be done on 09/13, when she arrived she had EKG done and was found to be in sinus bradycardia so cardioversion was aborted. She states she has been bradycardic and her PCP noted that as well at most recent visit. She has not felt like she has been in a-fib but has noticed herself be more fatigued especially after taking toprol XL. - Previous HPI per Dr. Cota 08/17/2022: HPI: Diana Oliver is a 67 y.o. year old with past medical history of Afib/ HTN/DM2 was seen for Afib. She was seen at [facility] in 01/2021 for SOB and was seen to be in Afib. She had a prior Holter after that which revealed non sustained AT vs Af but was predominently in SR with occ PVC. She notes HILL, she is in a wheelchair during visit. A few weeks ago she had some blood in her urine. This has cleared up. Holter monitor now has revealed AF all the time. She is not on any AAD and has not been cardioverted before. She denies CP, orthopnea, PND, LE edema, dizziness/LH, syncope. 3-day Holter monitor from 06/26/2022 to 06/29/2022 has revealed atrial fibrillation all the time. Occasional PVC was noted. The A. fib with ventricular rate was noted to range between 63 to 136 bpm 48Hr Holter 02/21/21 Non sustained AT vs Af but was predominently in SR with occ PVC PMHx: asthma, cervical CA, COPD, DM2, HTN, psoriasa, PAF, PAFlutter, obesity FMHx: father - heart disease, ?PM vs ICD; sister - afib Diet: diabetic diet, drinks water Caffeine: denies ETOH: denies Tobacco: denies Illicit drug use: denies Social: lives along, has a significant other Keny with her, 4 children (girls) Exercise: having PT/OT working with her at home TESTING: Echocardiogram 06/22/2022 shows EF of 55% with a moderately dilated left atrium with mild dilatation of the right atrium. ECHO (02/21/21): EF 55-60%, there is systolic flattening of the interventricular septum consistent with RV pressure overload, grade I DD, RV size is borderline, systolic function is normal, RVSP severely elevated at 73, RA 10 Carotid US 01/2021: <50% stenosis, antegrade vertebral artery flow, limited visualization of the carotid arteries PMH: Past Medical History: Diagnosis Date Atrial fibrillation (CMS/HCC) COPD (chronic obstructive pulmonary disease) (CMS/HCC) Diabetes mellitus (CMS/[facility]) Hypertension Sleep apnea PSH: No past surgical history on file. SH: Social Determinants of Health Tobacco (more content not included)... [facility] 03-26-2023 Note [place] [facility] Consul [facility] Note Reason for visit: here for hospital follow up s/p syncope HPI: Diana is here for 6 days follow-up in recent hospital ER visit. She was experiencing lightheadedness and dizziness and then had syncopal episode. She was having shortness of breath, diarrhea and chest discomfort. She was on 2 L of oxygen but this is where she normally is at home. She had echocardiogram which was unremarkable for any acute findings but she was noted to have mild concentric LVH, normal LVEF. and BNP drawn which was only 106, normal troponin but abnormal TSH with normal T4. discussed event monitor and possible stress test, patient does not want to pursue any intervention or monitoring. Result Date: 03/19/2023 Left Ventricle: Systolic function is normal with an ejection fraction of 55-60%. Image quality is essentially uninterpretable. Grossly normal left ventricular size with probably mild concentric left ventricular hypertrophy and probably normal left ventricular systolic function. Transesophageal echocardiogram could be considered if echocardiographic evaluation cardiac structures is clinically indicated [facility] ER note for syncope 03/18/23 Hospital Course: H&P Reviewed. Diana Oliver is a 67 y.o. female who presents with evaluation of dizziness. Pt states her dizziness started on Saturday and is worse today. Pt admits to syncopal episode on Saturday. Pt also complains of shortness of breath, chest pain, diarrhea, blurred vision, cough, and chills. Pt claims she is on 2L Oxygen at home at baseline. Pt states the chest pain is mild and states she does not have any currently. Pt claims diarrhea is baseline for her. Pt denies any nausea, vomiting, dysuria, frequency, fever, rhinorrhea, and sore throat. Pt admits she recently changed her medications of Xarelto to Eliquis. Pt states she also does not have an inhaler. Pt claims to a hx of Afib and diabetes. Pt has known drug allergies. ----- 09/2022 HPI: Diana Oliver is a 67 y.o. year old with past medical history of a-fib, hypertension, dm2. She was scheduled for cardioversion for a-fib to be done on 09/13, when she arrived she had EKG done and was found to be in sinus bradycardia so cardioversion was aborted. She states she has been bradycardic and her PCP noted that as well at most recent visit. She has not felt like she has been in a-fib but has noticed herself be more fatigued especially after taking toprol XL. - Previous HPI per Dr. Cota 08/17/2022: HPI: Diana Oliver is a 67 y.o. year old with past medical history of Afib/ HTN/DM2 was seen for Afib. She was seen at [facility] in 01/2021 for SOB and was seen to be in Afib. She had a prior Holter after that which revealed non sustained AT vs Af but was predominently in SR with occ PVC. She notes HILL, she is in a wheelchair during visit. A few weeks ago she had some blood in her urine. This has cleared up. Holter monitor now has revealed AF all the time. She is not on any AAD and has not been cardioverted before. She denies CP, orthopnea, PND, LE edema, dizziness/LH, syncope. 3-day Holter monitor from 06/26/2022 to 06/29/2022 has revealed atrial fibrillation all the time. Occasional PVC was noted. The A. fib with ventricular rate was noted to range between 63 to 136 bpm 48Hr Holter 02/21/21 Non sustained AT vs Af but was predominently in SR with occ PVC PMHx: asthma, cervical CA, COPD, DM2, HTN, psoriasa, PAF, PAFlutter, obesity FMHx: father - heart disease, ?PM vs ICD; sister - afib Diet: diabetic diet, drinks water Caffeine: denies ETOH: denies Tobacco: denies Illicit drug use: denies Social: lives along, has a significant other Keny with her, 4 children (girls) Exercise: having PT/OT working with her at home TESTING: Echocardiogram 06/22/2022 shows EF of 55% with a moderately dilated left atrium with mild dilatation of the right atrium. ECHO (02/21/21): EF 55-60%, there is systolic flattening of the interventricular septum consistent with RV pressure overload, grade I DD, RV size is borderline, systolic function is normal, RVSP severely elevated at 73, RA 10 Carotid US 01/2021: <50% stenosis, antegrade vertebral artery flow, limited visualization of the carotid arteries PMH: Past Medical History: Diagnosis Date Atrial fibrillation (CMS/HCC) COPD (chronic obstructive pulmonary disease) ([facility]/HCC) Diabetes mellitus ([facility]/HCC) Hypertension Sleep apnea PSH: No past surgical history on file. SH: Social Determinants of Health Tobacco Use: Medium Risk Smoking Tobacco Use: Former Smokeless Tobacco Use: Never Passive Exposure: Not on file Alcohol Use: Not on file Financial Resource Strain: Not on file F (more content not included)... [facility] 03-26-2023 Note Patient here for 5 m o follow up PAF and symptomatic bradycardia. She was seen in [facility] last week for dizziness and syncopal event. Had echo while admitted. Denies recurrent chest pain, palpitations, and bleeding on Eliquis. Gets SOB with exertion but this remains unchanged. Review of Systems Constitutional: Positive for malaise/fatigue. Cardiovascular: Positive for dyspnea on exertion, leg swelling and syncope (1 episode). Musculoskeletal: Positive for arthritis and joint pain. Neurological: Positive for excessive daytime sleepiness. All other systems reviewed and are negative. [facility] 06-26-2022 Hospital Discharge instructions Patient Education 06/26/2022 09:13:36 Hematuria, Adult Hematuria, Adult Hematuria is blood in the urine. Blood may be visible in the urine, or it may be identified with a test. This condition can be caused by infections of the bladder, urethra, kidney, or prostate. Other possible causes include: Kidney stones. Cancer of the urinary tract. Too much calcium in the urine. Conditions that are passed from parent to child (inherited conditions). Exercise that requires a lot of energy. Infections can usually be treated with medicine, and a kidney stone usually will pass through your urine. If neither of these is the cause of your hematuria, more tests may be needed to identify the cause of your symptoms. It is very important to tell your health care provider about any blood in your urine, even if it is painless or the blood stops without treatment. Blood in the urine, when it happens and then stops and then happens again, can be a symptom of a very serious condition, including cancer. There is no pain in the initial stages of many urinary cancers. Follow these instructions at home: Medicines Take pszh-kew-ispcgrt and prescription medicines only as told by your health care provider. If you were prescribed an antibiotic medicine, take it as told by your health care provider. Do not stop taking the antibiotic even if you start to feel better. Eating and drinking Drink enough fluid to keep your urine clear or pale yellow. It is recommended that you drink 3 4 quarts (2.8 3.8 L) a day. If you have been diagnosed with an infection, it is recommended that you drink cranberry juice in addition to large amounts of water. Avoid caffeine, tea, and carbonated beverages. These tend to irritate the bladder. Avoid alcohol because it may irritate the prostate (men). General instructions If you have been diagnosed with a kidney stone, follow your health care provider's instructions about straining your urine to catch the stone. Empty your bladder often. Avoid holding urine for long periods of time. If you are female: ?After a bowel movement, wipe from front to back and use each piece of toilet paper only once. ?Empty your bladder before and after sex. Pay attention to any changes in your symptoms. Tell your health care provider about any changes or any new symptoms. It is your responsibility to get your test results. Ask your health care provider, or the department performing the test, when your results will be ready. Keep all follow-up visits as told by your health care provider. This is important. Contact a health care provider if: You develop back pain. You have a fever. You have nausea or vomiting. Your symptoms do not improve after 3 days. Your symptoms get worse. Get help right away if: You develop severe vomiting and are unable take medicine without vomiting. You develop severe pain in your back or abdomen even though you are taking medicine. You pass a large amount of blood in your urine. You pass blood clots in your urine. You feel very weak or like you might faint. You faint. Summary Hematuria is blood in the urine. It has many possible causes. It is very important that you tell your health care provider about any blood in your urine, even if it is painless or the blood stops without treatment. Take zdvb-ljt-srwpfhy and prescription medicines only as told by your health care provider. Drink enough fluid to keep your urine clear or pale yellow. This information is not intended to replace advice given to you by your health care provider. Make sure you discuss any questions you have with your health care provider. Document Released: 10/14/2006 Document Revised: 03/09/2020 Document Reviewed: 11/16/2017 [employer] Patient Education 2020 [email or web address]. Follow Up Care 06/06/2022 10:15:36 With:Salvatore RODRIGUEZ, JARRETT Tejada, URO Address: When:Within 1 Month(s) [facility] Janny 06-06-2022 Hospital Discharge instructions Patient Education 06/06/2022 09:51:04 Hematuria, Adult Hematuria, Adult Hematuria is blood in the urine. Blood may be visible in the urine, or it may be identified with a test. This condition can be caused by infections of the bladder, urethra, kidney, or prostate. Other possible causes include: Kidney stones. Cancer of the urinary tract. Too much calcium in the urine. Conditions that are passed from parent to child (inherited conditions). Exercise that requires a lot of energy. Infections can usually be treated with medicine, and a kidney stone usually will pass through your urine. If neither of these is the cause of your hematuria, more tests may be needed to identify the cause of your symptoms. It is very important to tell your health care provider about any blood in your urine, even if it is painless or the blood stops without treatment. Blood in the urine, when it happens and then stops and then happens again, can be a symptom of a very serious condition, including cancer. There is no pain in the initial stages of many urinary cancers. Follow these instructions at home: Medicines Take dlel-jxt-oqpqrfq and prescription medicines only as told by your health care provider. If you were prescribed an antibiotic medicine, take it as told by your health care provider. Do not stop taking the antibiotic even if you start to feel better. Eating and drinking Drink enough fluid to keep your urine clear or pale yellow. It is recommended that you drink 3 4 quarts (2.8 3.8 L) a day. If you have been diagnosed with an infection, it is recommended that you drink cranberry juice in addition to large amounts of water. Avoid caffeine, tea, and carbonated beverages. These tend to irritate the bladder. Avoid alcohol because it may irritate the prostate (men). General instructions If you have been diagnosed with a kidney stone, follow your health care provider's instructions about straining your urine to catch the stone. Empty your bladder often. Avoid holding urine for long periods of time. If you are female: ?After a bowel movement, wipe from front to back and use each piece of toilet paper only once. ?Empty your bladder before and after sex. Pay attention to any changes in your symptoms. Tell your health care provider about any changes or any new symptoms. It is your responsibility to get your test results. Ask your health care provider, or the department performing the test, when your results will be ready. Keep all follow-up visits as told by your health care provider. This is important. Contact a health care provider if: You develop back pain. You have a fever. You have nausea or vomiting. Your symptoms do not improve after 3 days. Your symptoms get worse. Get help right away if: You develop severe vomiting and are unable take medicine without vomiting. You develop severe pain in your back or abdomen even though you are taking medicine. You pass a large amount of blood in your urine. You pass blood clots in your urine. You feel very weak or like you might faint. You faint. Summary Hematuria is blood in the urine. It has many possible causes. It is very important that you tell your health care provider about any blood in your urine, even if it is painless or the blood stops without treatment. Take dvcp-cml-dzgmzph and prescription medicines only as told by your health care provider. Drink enough fluid to keep your urine clear or pale yellow. This information is not intended to replace advice given to you by your health care provider. Make sure you discuss any questions you have with your health care provider. Document Released: 10/14/2006 Document Revised: 03/09/2020 Document Reviewed: 11/16/2017 [employer] Patient Education 2019 [email or web address]. Follow Up Care 06/05/2022 13:21:40 With:Salvatore RODRIGUEZ, JARRETT Tejada, URO Address: When: Unknown [facility] 01-19-2022 Progress note Note Date/Time January 19, 2022 2:10pm [facility] [address] [place] [address] Hospitalist Progress Note Signed Patient: Diana Oliver MR#: [id number] : 1955 Acct:[id number] Age/Sex: 66 / F Adm Date: 2 Loc: Room: [address] [place] [address] Type : ADM IN Attending Dr: Rafat Vences MD Copies to: ~ Date of Service: 01/19/2022 Subjective Subjective Narrative: Patient is a 66-year-old female history of morbid obesity/COPD/active tobacco abuse who presented to an outside facility due to shortness of breath chest x-ray was poor quality due to body habitus but showed some atelectasis involving right upper lobe cannot rule out consolidation. The patient had elevated BNP and lower extremity edema and was suspected to be admitted for acute exacerbation of CHF. The patient has been started on IV Lasix. The patient wasseen and examined this morning. She seems to be doing better. She seems to be comfortable sitting up on the chair on 2 L nasal cannula. She reports dyspnea with exertion but denies any significant cough, fever, chest pain, nausea or vomiting. Exam Physical Exam Vital Signs: Temp Pulse Resp BP Pulse Ox 97.5 F L 67 16 110/68 98 01/19/22 11:14 01/19/22 12:31 01/19/22 12:31 01/19/22 11:14 01/19/22 11:14 Narrative: General: patient is alert and oriented, sitting up in chair, morbidly obese, no signs of distress, nasal cannula cannula CVS: regular rate and rhythm, no murmurs or gallops Respiratory: Diminished bilateral air entry difficult to evaluate for any added sounds due to body habitus GI: soft, obese, nondistended, nontender, positive bowel sounds with no organomegaly Extremity: Bilateral lymphedema, no calf tenderness Neuro: alert and oriented x3, normal speech, normal motor function Objective Lab Results CBC & Chem 7: 01/19/22 06:31 Meds Allergies and Active Meds Allergies Iodinated Contrast Media Allergy (Verified 01/19/22 03:26) Hives meperidine [From Demerol] Allergy (Verified 01/19/22 03:26) Hives Active Meds: Active Medications Generic Name Dose Route Start Last Admin Trade Name Freq PRN Reason Stop Dose Admin Acetaminophen 650 mg 01/19/22 03:41 Acetaminophen 325 Mg Tablet PO 01/19/23 03:40 Q6HR PRN Pain Scale 1 - 3 or fever Albuterol/Ipratropium 3 ml 01/19/22 08:00 01/19/22 12:30 Ipratropium/Albuterol 0.5-3 Mg 3 Ml Ampul.Neb INHALATION 01/19/23 07:59 3 ml QID.RESP WILL Administration Furosemide 40 mg 01/19/22 16:00 Furosemide 40 Mg/4 Ml Vial IV-PUSH 01/19/23 15:59 BID@0800,1600 WILL Guaifenesin/Dextromethorphan 10 ml 01/19/22 03:41 Guaif/Dextromethorphan Syrup 10 Ml Udc PO 01/19/23 03:40 Q8H PRN Cough Magnesium Sulfate 2 gm in 50 mls @ 25 mls/hr 01/19/22 03:41 Magnesium Sulf 2gm-*Swfi* IV 01/19/23 03:40 DAILY PRN Magnesium Level < 1.5 Lisinopril 2.5 mg 01/19/22 12:00 01/19/22 11:13 Lisinopril 2.5 Mg Tablet PO 01/19/23 11:59 2.5 mg DAILY WILL Administration Metformin HCl 1,000 mg 01/19/22 17:00 Metformin 500 Mg Tablet PO 01/19/23 16:59 BID.WITH.MEALS WILL Metoprolol Succinate 50 mg 01/19/22 09:00 01/19/22 08:46 Metoprolol Succinate 50 Mg Tab.Er.24h PO 01/19/23 08:59 50 mg DAILY WILL Administration Ondansetron HCl 4 mg 01/19/22 03:41 Ondansetron 4 Mg/2 Ml Vial IV-PUSH 01/19/23 03:40 Q8H PRN Nausea And Vomiting Potassium Chloride 20 meq 01/19/22 03:41 Potassium Chloride Er 20 Meq Tab.Er.Prt PO 01/19/23 03:40 DAILY PRN Hypokalemia Potassium Chloride 40 meq 01/19/22 03:41 Potassium Chloride Er 20 Meq Tab.Er.Prt PO 01/19/23 03:40 DAILY PRN Hypokalemia Rivaroxaban 20 mg 01/19/22 17:00 Rivaroxaban 20 Mg Tablet PO 01/19/23 16:59 DAILY.WITH.SUPPER WILL Spironolactone 25 mg 01/19/22 09:00 01/19/22 08:46 Spironolactone 25 Mg Tablet PO 01/19/23 08:59 25 mg DAILY WILL Administration A&P - Hospitalist Assessment/Plan (1) Acute hypoxemic respiratory failure: (2) Acute on chronic diastolic heart failure: (3) Morbid obesity with BMI of 60.0-69.9, adult: Plan Assessment plan *Acute on chronic hypoxemic respiratory failure Most likely due to CHF exacerbation due to diastolic dysfunction Currently on IV Lasix 40 mg twice daily Chest x-ray showing potential consolidation on the right side but the patient has no fever or leukocytosis Routine CT scan for further evaluation of the lung parenchyma *History of type 2 diabetes mellitus Continue Metformin *History of A. fib Continue Toprol and Xarelto *History of obesity hypoventilation syndrome and obstructive sleep apnea, noncompliant with CPAP due to claustrophobia Documented By: Rafat Vences MD 01/19/22 1407 Signed By: <Electronically signed by Rafat Vences MD> 01/19/22 1413 [facility] Work Phone: [phone]) 870-672703-25-2022 History and physical note Author Zane Zuniga [facility] January 19, 2022 5:13am Note Date/Time January 19, 2022 4:2 8am [facility] [address] [place] [address] Hospitalist H&P Signed Patient: Diana Oliver MR#: [id number] : 1955 Acct:[id number] Age/Sex: 66 / F Adm Date: 2 Loc: Room: [address] [place] [address] Type : ADM IN Attending Dr: Jay Loera DO Copies to: NON STAFF MD Jay Agosto, DO~ HPI DATE OF EXAMINATION: 01/19/22 CHIEF COMPLAINT: SOB HISTORY OF PRESENT ILLNESS: Patient is a 66-year-old female history of morbid obesity/COPD/active tobacco abuse who presented to an outside facility due to shortness of breath, the patient on my encounter stated that she has been short of breath for long time but she stated that over the last couple weeks she has been getting worse and ifshe goes to the restroom and back she will have an appointment according to her,the patient not have any chest pain/cough/fever/chills or wheezing, the other facility her blood work was grossly normal, vital signs were also normal, the patient got an ABG with normal pH and PCO2 of 56 with PO2 of 69, the patient wasplaced on 2 L, chest x-ray was nonacute and showed cardiomegaly, the patient wasgiven azithromycin and Solu-Medrol and was sent to us for further evaluation andmanagement, [place] the patient was lying in bed did not seem to be in distress she was watching TV, the patient stated that she has not been wheezing or coughing even prior to presentation to the hospital Review of Systems Review of Systems All other systems reviewed & are negative unless noted below or in HPI PMFSH Vaccinated for COVID-19?: No Medical History (Updated 01/19/22 @ 04:58 by Nicki Sol RN) A-fib Asthma Atrial flutter Cervical cancer COPD (chronic obstructive pulmonary disease) Diabetes Hypertension Psoriasis Social History Smoking Status: Former smoker Tobacco Type: cigarettes Meds Medications and Allergies Allergies Iodinated Contrast Media Allergy (Verified 01/19/22 03:26) Hives meperidine [From Demerol] Allergy (Verified 01/19/22 03:26) Hives Home Medications albuterol sulfate 90 mcg/actuation aerosol inhaler 90 mcg INHALATION 01/19/22 [History] calcium carbonate 500 mg-vitamin D3 5 mcg (200 unit) tablet tab 01/19/22 [History Confirmed 01/19/22] furosemide 20 mg tablet 40 mg PO DAILY 01/19/22 [History Confirmed 01/19/22] lisinopril 2.5 mg tablet 2.5 mg PO DAILY 01/19/22 [History Confirmed 01/19/22] metformin 1,000 mg tablet 850 mg PO DAILY 01/19/22 [History Confirmed 01/19/22] metoprolol succinate 50 mg tablet,extended release 24 hr 50 mg PO BID 01/19/22 [History Confirmed 01/19/22] rivaroxaban 20 mg tablet (Xarelto) 20 mg PO HS 01/19/22 [History Confirmed 01/19/22] spironolactone 25 mg tablet 25 mg PO DAILY 01/19/22 [History Confirmed 01/19/22] Exam Physical Exam Vital Signs: Pulse Resp BP Pulse Ox 63 20 138/78 97 01/19/22 03:13 01/19/22 03:13 01/19/22 03:13 01/19/22 03:13 Narrative: General: patient is alert and oriented, laying in bed comfortably no acute distress HEENT: head atraumatic, normocephalic, moist mucous membranes, normal nose and ears, no throat lesions, normal conjunctiva Neck: supple no masses, no lymphadenopathy CVS: regular rate and rhythm, no murmurs or gallops Respiratory: clear to auscultation bilaterally, no wheezing or crackles, symmetric expansion GI: soft, nondistended, nontender, positive bowel sounds with no organomegaly Extremity: moves all extremities, no restrictions of movements, no calf tenderness, no edema Neuro: alert and oriented x3, normal speech, normal motor function Skin: dry, intact no rashes or lesions A&P - Hospitalist Assessment/Plan (1) Acute hypoxemic respiratory failure: Plan Assessment plan *Acute on chronic hypoxemic respiratory failure ?I have high suspicion for probably acute and chronic congestive heart failure ?Unknown type of congestive heart failure hospital an echo the patient does really know ?I was unable to assess her volume status due to body habitus ?We will start patient on IV Lasix and hold her p.o. Lasix ?Continue home dose spironolactone ?We will get an echo ?Strict I's and O's ?Restrict sodium to 2 g a day *History of type 2 diabetes mellitus ?Continue her home dose Metformin ?Recurrent A1C *History of A. fib ?Heart rate is controlled ?Continue Toprol-XL and Xarelto *History of obesity hypoventilation syndrome and obstructive sleep apnea ?Patient has CPAP at home however she does not wear it due to claustrophobia Documented By: Zane Ram MD 2 0423 Signed By: <Electronically signed by Zane Ram MD> 01/19/22 0513 [facility] Work Phone: Discharge summary Author Rafat Vences [facility] January 20, 2022 2:35pm Note Date/Time January 20, 2022 2:3 5pm [facility] [address] [place] [address] Discharge Summary Signed Patient: Diana Oliver MR#: [id number] : 1955 Acct:[id number] Age/Sex: 66 / F Adm Date: 2 Loc: Room: [address] [place] [address]: Rafat Vences MD Copies to: NON STAFF Rafat Vences MD~ Providers Date of Discharge: 01/20/22 Discharging Provider: Rafat Vences Primary Care Provider: NON STAFF Consults: 01/19/22 03:41 Consult to Occupational Therapy Routine Consult to Physical Therapy Routine Discharge Diagnosis (1) Acute hypoxemic respiratory failure: (2) Acute on chronic diastolic heart failure: (3) Morbid obesity with BMI of 60.0-69.9, adult: Final Diagnosis Final Discharge Diagnosis: As above Summary Hospital Course Hospital course: This is 66-year-old female with history of diabetes, morbid obesity, PAYTON noncompliant with BiPAP, diastolic heart failure, she presented with increased shortness of breath and was requiring oxygen, chest x-ray showed some evidence of atelectasis and interstitial prominence. Patient was admitted for treatment of CHF exacerbation. She was started on diuresis with Lasix. The patient refused to get a CT scan of the chest to further evaluate her lung parenchyma asshe is claustrophobic. Patient respiratory status improved. She was able to ambulate in her home. She was evaluated with a walk study and required 2 L of oxygen. Patient feels good enough to go home today. She was counseled about importance of sodium and fluid restriction. She was advised to be more compliant with her CPAP machine 2D echo reviewed on discharge, patient has normal ejection fraction, mild to moderate concentric left ventricular hypertrophy, diastolic dysfunction with left atrial dilatation Time Spent with Patient Time spent providing/coordinating discharge services (# min): 35 Diagnostic Studies Completed and Pending Studies Pending studies at discharge: 01/21/22 05:00 Basic Metabolic Panel [CHEM] IN AM Labs on day of discharge: 01/20/22 12:38: PHA Creatinine Clear 104.99, Sodium 135 L, Potassium 4.3, Chloride 90 L, Carbon Dioxide 31.2 H, BUN 18, Creatinine 0.75, Est GFR ( Amer) > 60, Est GFR (Non-Af Amer) > 60, Glucose 145 H, Calcium 8.9 Exam Physical Exam Vital Signs: Temp Pulse Resp BP Pulse Ox 97.8 F 68 18 97/57 L 98 01/20/22 11:39 01/20/22 12:15 01/20/22 12:15 01/20/22 11:39 01/20/22 11:39 Discharge Plan Discharge Plan Prescriptions: No Action metoprolol succinate 50 mg tablet extended release 24 hr 50 mg PO DAILY RF: 0 spironolactone 25 mg tablet 25 mg PO DAILY RF: 0 metformin 1,000 mg tablet 1,000 mg PO BID.WITH.MEALS RF: 0 furosemide 20 mg tablet 40 mg PO DAILY RF: 0 albuterol sulfate 90 mcg/actuation HFA aerosol inhaler 90 mcg INHALATION Q4H PRN (Reason: Shortness Of Breath) RF: 0 lisinopril 2.5 mg Tablet 2.5 mg PO DAILY RF: 0 calcium carbonate-vitamin D3 500 mg-5 mcg (200 unit) Tablet RF: 0 Xarelto 20 mg tablet 20 mg PO HS RF: 0 Documented By: Rafat Vences MD 01/20/22 1424 Signed By: <Electronically signed by Rafat Vences MD> 01/20/22 1764 [facility] Work Phone: Evaluation + Plan note Future Appointments Appointment Date:06/26/2022 09:00:00 AM Scheduled Provider:Lis Chase MD Location:[facility] Appointment Type:URO Procedure 15 min Diagnostic Tests Pending * Urine Cytology ([facility]) 06/06/22 [facility] evaluation + Plan note Future Appointments Appointment Date:07/25/2022 09:30:00 AM Scheduled Provider:Lis Chase MD Location:[facility] [facility] Appointment Type:URO Office Visit [facility] Evaluation note* Diagnosis Onset Date Resolution Status Acute hypoxemic respiratory failure acute Acute on chronic diastolic heart failure acute Morbid obesity with BMI of 60.0-69.9, adult acute [facility] Work Phone: Hospital course Narrative No data available for this section [facility] Hospital Discharge instructionsAmbulatory Orders* DME Home Medical Equipment Time Frame: 1 Day, Location: Determined By Patient [facility] Work Phone: InstructionsNot on filedocumented in this encounter [facility] SystemProgress note No data available for this section [facility] Chief Complaint and Reason for Visit Chief Complaint COPD Reason for Visit Acute hypoxemic resp iratory failure Acute on chronic diastolic heart failure Morbid obesity with BMI of 60.0-69.9, adult Advance Directives Advance Directive Response Recorded Date/ Time Advance Directives No January 18, 2 022 8:27pm Latest Code Status on File Code Status Date Activated Date Inactivated Comments Full Code 12/12/2023 3:12 AM 12/12/2023 9:19 PM Code Status History Code Status Date Activated Date Inactivated Comments Full Code 11/07/2023 6:33 PM 11/10/2023 7:23 PM Full Code 05/03/2023 9:35 AM 05/03/2023 6:17 PM Full Code 03/18/2023 7:04 PM 03/19/2023 5:53 PM Full Code 05/16/2022 9:42 PM 05/18/2022 7:33 PM Healthcare Agents on File Name Relationship Healthcare Agent Relationshi p Communication Nikky Pandey Daughter [facility] re Agent Summary Purpose Family History No Family History Records FoundNo Family History Records FoundNo Family History Records FoundNo Family History Records FoundNo Family History Records Found Additional Source Comments Care Teams (unrecognized sec tion and content) Team Status: Inactive Member Role Status Dates NON STAFF Primary Care Provider Active Jay Loera DO Admit Provider Active Rafat Vences MD Attending Provider Active Team Status: Active Member Role Status Dates NON STAFF Primary Care Provider Active Hydraulic Boom Operator Relationship Specialty Start Date End Date [facility] [address] [place], [place] PCP - General Family Medicine 12/07/19 INFORMATION SOURCE (unrecogn ized section and content) DATE CREATED AUTHOR 08/26/2022 [facility] DATE CREATED AUTHOR AUTHOR'S ORGANIZ ATION 10/23/2022 [facility] DATE CREATED AUTHOR AUTHOR'S ORGANIZ ATION 12/01/[address] [facility] DATE CREATED AUTHOR AUTHOR'S ORGANIZ ATION 12/07/2023 [facility] DATE CREATED AUTHOR AUTHOR'S ORGANIZ ATION 01/01/2024 [facility] FOR RECORDS PERTAINING TO PATIENTS WHO ARE OR HAVE BEEN ENROLLED IN A CHEMICAL DEPENDENCY/SUBSTANCEABUSE PROGRAM, SOME INFORMATION MAY BE OMITTED. This clinical summary was aggregated from multiple sources. Caution should be exercised in using it in the provision of clinical care. This summary normalizes information from multiple sources, and as a consequence, information in this document may materially change the coding, format and clinical context of patient data. In addition, data may be omitted in some cases. CLINICAL DECISIONS SHOULD BE BASED ON THE PRIMARY CLINICAL RECORDS. [facility] [employer] [facility]. provides no warranty or guarantee of the accuracy or completeness of information in this document.
== END 2024-01-07 19:20 | disposition home or self-care (01) ==
LOC: SLEEP 19:19
PROVIDERS: PCP Internal Medicine; Visit Provider Internal Medicine
DX: G47.33 Obstructive sleep apnea (adult) (pediatric) (principal)
CPT/HCPCS: 95811

== ENCOUNTER 2025-06-14 09:08 | Outpatient (OUT) | payer MEDICARE, SELFPAY ==
--- OUTSIDE RECORDS SUMMARY | 2025-03-15 10:57 | XMS_ITS | Continuity of Care Document ---
Author Organization [facility] Address [address] [place] [address] Phone Care Team Providers Care Spindle Tester Name Role Phone Bindu Phoenix MD Unavailable Unavailab le Allergies, Adverse Reactions, Alerts Substance Reaction Status Criticality DYE Active No Information PRESERVATIVE FREE HivesHives Active No Informa tion MEPERIDINE HCL HivesHives Active No Informatio n Medications Medication Instructions Dosage Effective Dates (start - stop) Status Comments Eliquis 5 mg tablet take 1 tablet by ora l route 2 times every day 5 MG - Active furosemide 40 mg tablet take 1 tablet by oral route every day 40 MG - Active metformin 1,000 mg tablet take 1 tablet by oral route 2 times every day with morning and evening meals 1000 MG - Active duloxetine 60 mg capsule,delayed release take 1 capsule by oral route every day 60 MG - Active Vitamin D2 1,250 mcg (50,000 unit) capsule take 1 tablet by oral route every week 1 tablet - Active amiodarone 200 mg tablet take 1 tablet by oral route every day 200 MG - Active amitriptyline 50 mg tablet take 1 tablet by oral route every day at bedtime 50 MG - Active albuterol sulfate HFA 90 mcg/actuation aerosol inhaler inhale 2 puff by inhalation route every 4 - 6 hours as needed 180 MCG - Active albuterol sulfate 2.5 mg/3 mL (0.083 %) solution for nebulization inhale 3 milliliter by nebulization route 3 times every day 2.5 MG - Active lisinopril 2.5 mg tablet take 1 tablet by oral route every day 2.5 MG - Active rosuvastatin 10 mg tablet take 1 tablet by oral route every evening 10 MG - Active metoprolol succinate ER 25 mg tablet,extended release 24 hr take 1 tablet by oral route every day 25 MG - Active Procedures Procedure Date ROUTINE VENIPUNCTURE OFFICE/OUTPATIENT VISIT, [facility] Advance Directives Directive Yes / No Effective Date File Name No Information Encounters Encounter Description Practice Location Reason(s) For Visit Diagnoses Date Provider Providers Copied on Encounter [facility], [address] [place] [address], [id number] , tel:[phone] [facility] No Information Alban Ruano. [address], [place], [id number], [place]. tel:[phone] OFFICE/OUTPA TIENT VISIT, [facility], [address] [place] [address], [id number] , tel:[phone] [facility] Office Visit (chief complaint) Body mass index [BMI] 60.0-69.9, adultType 2 diabetes mellitus w/ diabetic neuropathyHyperlipid emiaCOPDAtrial fibrillationDependen ce on supplemental oxygenEncounter for screening for HIVVitamin D deficiencyAdult obstructive sleep apneaVaricose veins of bilateral legs w/ edema 5 Alban Ruano. [address] [place] [address], [id number], [place]. tel:[phone] Family History Family Member Type Diagnosis Age At Onset No Information Payers Payer name Insurance type Covered constitution party ID Authoriza tion(s) Self Pay Cap [id number] Social History Type Description Quantity Date Captured Comments Alcohol Use Details Unknown Caffeine Use Details Unknown Tobacco Use Status No Information Smoking Status No Information Sex Female Sexual Orientation Straight or heterosexual Oct Gender Identity Female Chief Complaint And Reason For Visit No Information Reason For Referral Reason For Referral No Information Plan Of Treatment Date Type Action Status Goal ASCVD 10 year risk. Due on due Goal Pneumococcal vaccine. Due on due Goal Dental exam. Due on due Goal Urine microalbumin. Due on due Goal Foot exam. Due on due Goal Dilated eye exam. Due on February due Goal Hemoglobin A1C. Due on due Goal Influenza vaccine. Due on due Goal FIT. Due on due Goal CT-Colonography. Due on due Goal Colonoscopy. Due on due Goal Zoster vaccine (). Due on due Goal Mammogram. Due on due Goal Tdap. Due on due Goal Hepatitis C screening. Due o n due Goal PRAPARE ASSESSMENT. Due on due Goal Unhealthy drug use screening . Due on due Goal FOBT. Due on due Goal Depression screening. Due on due Goal Tdap Vaccine. Due on 2024 due Goal FIT-DNA. Due on due Goal Lipid panel. Due on due Goal Hemoglobin A1C. Due on due Goal Foot exam. Due on 6 due Goal ASCVD 10 year risk. Due on due Goal Dental exam. Due on due Goal Urine microalbumin. Due on due Goal Pneumococcal vaccine. Due on due Goal Dilated eye exam. Due on Oct due Goal Tdap. Due on due Goal Unhealthy drug use screening . Due on due Goal FIT. Due on due Goal Depression screening. Due on due Goal Zoster vaccine (). Due on due Goal Influenza vaccine. Due on due Goal Colonoscopy. Due on due Goal Lipid panel. Due on 026 due Goal PRAPARE ASSESSMENT. Due on due Goal Hep A. Due on du e Goal Tdap Vaccine. Due on 2024 due Goal FOBT. Due on due Goal Mammogram. Due on due Goal CT-Colonography. Due on due Goal FIT-DNA. Due on due Goal Hepatitis C screening. Due o n due Goal Dietary management education , guidance, and counseling completed History Of Present Illness Encounter Date Complaint History Of Prese nt Illness Office Visit Patient presents as a new patient. Patient is in need of a primary care provider as she is having a hard time with her insurance. Patient had mammogram 12/2023. Patient sees Dr Heard for pulmonology, Dr Etienne for endocrinology, and a link trainer mechanic at [facility]. Patient is having a hard time with insurance paying for medication. Denies alcohol use, quit smoking in 2000, denies vaping, denies substance use. Patient did cologuard several months ago. Patient is due for mammogram in December. --Rick Valencia got most of her medications from her family doctor.DM2 - metformin. DM over 20 yrs. No sores on feet. Has callus. Not seen a sole inker recently. Has neuropathy and on Amitriptyline 50 mg and Duloxetine per prior PCP. Needs podiatry. Last A1C was done by endocrinology couple weeks ago 6.4 in endocrinology office. Last eye doctor visit was last year. [facility] in [facility]. [facility]Ill get [facility] from [facility]. Had cataract removal in [place]. That was 2020. Has floaters in left eye now. That has bee going on for a year or so. Rarely checks sugars. Not had monofilament in a year. Saw foot doctor one yr ago. No sores. Always wear slippers or shoes. Never barefoot. Cardiology - Atrial Fibrillation for past 3 yrs. On Amiodarone for 3 yrs and Eliquis. Gets labs about one year ago. Last labs in September. She is not sure what lab gets the results. On water pill for swelling in legs. No heart failure or [place]. She had stress but could not tolerata Coronary Artery CT. She gets claustrophobic. Saw link trainer mechanic last month. Had compression socks for her legs in the past. She was to be cardioverted but pills were working.Arthritis left knee - Salonpas seems to be working for her. Does not see specialist about her knees. Told her no surgery due to too heavy. Walks with walker, very short distance. Breathing is the issue with distances. COPD - has Emphysema. Stopped smoking 10/30/2000. Smoked for 32 yrs, 1.5 ppd. SHe will not do LDCT due to Claustrophobia. Last CXR was 1.5 years ago. Has home oxygen. Uses as needed only, when walking. She waits until short of breath. Cannot walk 50 feet without dyspnea. Lives in trailer. She has a portable oxygen but cannot figure out how to use it. She does not have an oxygen concentrator. PAYTON and on CPAP per pulmonology. Sleep study in [place] about a year ago. Had elevated CO2 before it was started. She is not able to stay here for PCP due to insurance with [employer] [address] units weekly for the last year. She is not sure when last checked. She has not had the COMMODITY BROKER from [employer] see her yet. Functional Status Date Functional Assessmen t No Information Instructions Date Instruction Additional Infor bony Added Lisinopril 2.5 mg daily to help with kidney protection. Changed statin to Rosuvastatin 10 mg at bedtime daily. Talk to Endocrionology about Mounjaro or Zepbound as they can help with Sleep Apnea as well. Related to Type 2 diabetes mellitus w/ diabetic neuropathy Discuss Zepbound or Mounjaro with Pc Maintenance Technician as will help with diabetes and weight loss. Is also helpfu with PAYTON. Discussed increased risk of complications from COVID and need to get COVID shot. Discussed increased risk of comolications from Flu and need to get flu shot. Related to Body mass index [BMI] 60.0-69.9, adult Continue to use CPAP religiously. It helps decrease strain in heart and prevent heart failure. Related to Adult obstructive sleep apnea Contract Devoted to see what mail order lobsterman prescriptions need sent to. This will make them cheaper. Let specialists know. Related to Atrial fibrillation Use oxygen whenever active Relat ed to Dependence on supplemental oxygen Contact Pulmonology about options for Oxygen Concentrator, portable concentrator and poratble oxygen. Use oxygen any time up and moving. Related to COPD Giving encouragement to exercise Related to Body mass index [BMI] 60.0-69.9, adult Dietary management e ducation, guidance, and counseling Related to Body mass index [BMI] 60.0-69.9, adult Assessments Type Assessment Date No Information Patient Care Teams Name Effective Dates (start - stop) Status Members No Information
--- OUTSIDE RECORDS SUMMARY | 2025-06-14 09:14 | XMS_ITS | Encounter Summary ---
Author Organization [facility] Address [address] [place] [address] Care Team Providers Care Yarn Examiner Skeins Name Role Phone aMggi Polk DO Primary Care Provider [phone] Encounter Details Date Type Department Care Team (Late st Contact Info) Description 03/13/2024 Abstract [facility] [address] [place] [id number] Aurora Kidd, DPM [address] [place], [place] [id number] Social History Tobacco Use Types Packs/Day Years Used Date Smoking Tobacco: Former Cigarettes Smokeless Tobacco: Never Alcohol Use Standard Drinks/Week Comments Not Currently 0 (1 standard drink = 0.6 oz pur e alcohol) Comments Unknown Sex and Gender Information Value Date Recorded Sex Assigned at Not on file Legal Sex Female 7:17 PM EDT Gender Identity Not on file Sexual Orientation Not on file documented as of this encounter Plan of Treatment Upcoming Encounters Date Type Department Care Team (Late st Contact Info) Description 11/10/2025 9:30 AM EST Office Visit [facility] [address] [place] [address] Errol Etienne MD [address] [place] [address] documented as of this encounter Visit Diagnoses Not on filedocumented in this encounter Care Teams Yarn Examiner Skeins Relationship Specialty Start Date End Date Maggi Polk DO [address] [place] [address] PCP - General Family Medicine 02/25/24 documented as of this encounter
--- OUTSIDE RECORDS SUMMARY | 2025-06-14 09:14 | XMS_ITS | Encounter Summary ---
Author Organization [facility] Address [address] [place] [address] Care Team Providers Care Surgical Assistant Name Role Phone KikoMaggi wilkins Primary Care Provider [phone] Nikky Hong NP Primary Care Provider [phone] Reason for Visit * Reason Comments Med Refill Encounter Details Date Type Department Care Team (Late st Contact Info) Description 04/19/2023 Refill [facility] [address] [place] [address] Gerardo Cota MD [address] [place] [phone] Persistent atrial fibrillation (CMS/HCC) Social History Tobacco Use Types Packs/Day Years Used Date Smoking Tobacco: Former Cigarettes Smokeless Tobacco: Never Alcohol Use Standard Drinks/Week Comments Not Currently 0 (1 standard drink = 0.6 oz pur e alcohol) Comments Unknown Sex and Gender Information Value Date Recorded Sex Assigned at Not on file Legal Sex Female 5:40 PM EDT Gender Identity Not on file Sexual Orientation Not on file COVID-19 Exposure Response Date Recorded In the last 10 days, have yo u been in contact with someone who was confirmed or suspected to have Coronavirus/COVID-19? No / Unsure 03/26/2023 10:35 AM EDT documented as of this encounter Plan of Treatment Not on file documented as of this encounter Visit Diagnoses Diagnosis Persistent atrial fibrillation (CMS/HCC) Atrial fibrillation documented in this encounter Care Teams Surgical Assistant Relationship Specialty Start Date End Date Maggi Polk DO [address] [place] [address] PCP - General 08/17/22 01/07/25 Nikky Hong NP [facility] [place] [address] PCP - General Family Medicine 01/08/25 documented as of this encounter
--- OUTSIDE RECORDS SUMMARY | 2025-06-14 09:14 | XMS_ITS | Encounter Summary ---
Author Organization [employer] [facility] tem Address [id number] [address] [place] [address] Care Team Providers Care Ditching Machine Operating Engineer Name Role Phone No Pcp, No Pcp Primary Care Provider Unavailabl e Reason for Visit * Reason Comments Med Refill Encounter Details Date Type Department Care Team (Late st Contact Info) Description 12/20/2022 Refill [facility] [address] [place] [address] Sita Burgos, HAND WOVEN CARPET AND RUG MENDER-EXECUTIVE CHAIRMAN [address] [facility] 01/2025 [place] [address] Med Refill Social History Tobacco Use Types Packs/Day Years Used Date Smoking Tobacco: Former Cigarettes Q uit: 10/30/2000 Smokeless Tobacco: Never Alcohol Use Standard Drinks/Week Comments No 0 (1 standard drink = 0.6 oz pur e alcohol) Childcare Answer Date Recorded Childcare Unknown 04/08/2019 Employment Answer Date Recorded Employment Unknown 04/08/2019 Purpose - Life Answer Date Recorded Purpose and direction in life Unknown Comments No Sex and Gender Information Value Date Recorded Sex Assigned at Female 03/18/2023 9:07 PM EDT Legal Sex Female 11:31 AM EDT Gender Identity Female 03/18/2023 9:07 PM EDT Sexual Orientation Straight 03/18/2023 9: 07 PM EDT COVID-19 Exposure Response Date Recorded In the last month, have you been in contact with someone who was confirmed or suspected to have Coronavirus / COVID-19? No / Unsure 12/07/2022 12:53 PM EST documented as of this encounter Miscellaneous Notes * Telephone Encounter - Pb Mina RN - 12/20/2022 8:42 AM EST Last visit 10/19/21 Needs an appt documented in this encounter Plan of Treatment Not on file documented as of this encounter Visit Diagnoses Diagnosis Essential hypertension Unspecified essential hypertension Paroxysmal atrial fibrillation (CMS-HCC) Atrial fibrillation Localized edema Edema Shortness of breath documented in this encounter Additional Health Concerns Infection Onset Date Last Indicated Resolved Time COVID-19 Rule-Out 03/18/2023 03/18/2023 03/18/2023 6:13 PM EDT COVID-19 Rule-Out 11/07/2023 11/07/2023 11/07/2023 5:25 PM EST documented as of this encounter Care Teams Ditching Machine Operating Engineer Relationship Specialty Start Date End Date No Pcp, [place] [address] PCP - General Family Medicine 01/12/25 documented as of this encounter
--- OUTSIDE RECORDS SUMMARY | 2025-06-14 09:14 | XMS_ITS | Encounter Summary ---
Author Organization [employer] [facility] tem Address [id number] [address] [place] [address] Care Team Providers Care Indirect Sales Representative Name Role Phone No Pcp, No Pcp Primary Care Provider Unavailabl e Encounter Details Date Type Department Care Team (Late st Contact Info) Description 12/08/2024 Telephone [facility] Internal [facility] - Family Medicine [address] [place] [address] Yen Coy CMA Social History Tobacco Use Types Packs/Day Years Used Date Smoking Tobacco: Former Cigarettes Q uit: 10/30/2000 Smokeless Tobacco: Never Alcohol Use Standard Drinks/Week Comments No 0 (1 standard drink = 0.6 oz pur e alcohol) [facility] Utilities Answer Date Recorded In the past 12 months has e electric, gas, oil, or water company threatened to shut off services in your home? No 12/12/2023 PRAPARE - Transportation Answer Date Re corded In the past 12 months, has l ack of transportation kept you from medical appointments or from getting medications? No 11/28 In the past 12 months, has l ack of transportation kept you from meetings, work, or from getting things needed for daily living? No 12/12/2023 Housing Instability Answer Date Recorde d Are you worried or concerned that in the next two months you may not have stable housing that you own, rent or stay in as a part of a household? No 12/12/2023 Childcare Answer Date Recorded Childcare Unknown 04/08/2019 Employment Answer Date Recorded Employment Unknown 04/08/2019 Hunger Screening Answer Date Recorded Within the past 12 months we worried whether our food would run out before we got money to buy more. Never True 02/07/2024 Within the past 12 months th e food we bought just didn't last and we didn't have money to get more. Never True 02/07/2024 Purpose - Life Answer Date Recorded Purpose and direction in life Unknown Comments No Sex and Gender Information Value Date Recorded Sex Assigned at Female 03/18/2023 9:07 PM EDT Legal Sex Female 11:31 AM EDT Gender Identity Female 03/18/2023 9:07 PM EDT Sexual Orientation Straight 03/18/2023 9: 07 PM EDT documented as of this encounter Miscellaneous Notes * Telephone Encounter - Yen Coy CMA - 12/08/2024 9:59 AM EST Pt called and would like to become a new pt of yours. Let me know and I will call her back * Telephone Encounter - Gilles oPlk DO - 12/08/2024 9:59 AM EST It looks like she has a PCP already. I do not like to take patients from other doctors when they are established with physicians. Was there problem? * Telephone Encounter - Yen Coy CMA - 12/08/2024 9:59 AM EST I called and left message on VM documented in this encounter Plan of Treatment Not on file documented as of this encounter Goals Goal Patient Goal Type Associated Problems Recent Progress Patient-Stated? Author home with resumption of [facility] General Yes Laura Rutledge LSW Note: Evaluation of progress towards goal: under assessment documented as of this encounter Visit Diagnoses Not on filedocumented in this encounter Care Teams Indirect Sales Representative Relationship Specialty Start Date End Date No Pcp, [place] [address] PCP - General Family Medicine 01/12/25 documented as of this encounter
--- OUTSIDE RECORDS SUMMARY | 2025-06-14 09:14 | XMS_ITS | Clinical Summary ---
Author Organization [facility] Address [address] [place] [address] Care Team Providers Care Bowling Pin Setters Installer Name Role Phone Nikky Hong NP Primary Care Provider [phone] Allergies Active Allergy Reactions Criticality Noted Date Comments Dye 01/16/2018 Other reaction(s): Unknown Iodinated Contrast Media 09/10/2017 Meperidine Hives 09/10/2017 Medications furosemide (Lasix) 40 mg tablet Take 40 mg by mouth in the morning. 1 Active metFORMIN (Glucophage) 500 mg tablet 1,000 mg every 12 (twelve) hours. Active spironolactone (Aldactone) 25 mg tablet in the morning. 2 Active albuterol 90 mcg/actuation inhaler Inhale 2 puffs every 6 (six) hours if needed for wheezing. Active budesonide-formo teroL (Symbicort) 80-4.5 mcg/actuation inhaler Inhale 2 puffs if needed each day. 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 90 tablet 3 3 Active Additional Information Patient not taking.Reported on 01/08/2025 amitriptyline (Elavil) 50 mg tablet Active calcium carbonate-vitami n D3 500 mg-5 mcg (200 unit) tablet Take 1 tablet by mouth. Active simvastatin (Zocor) 5 mg tablet Take 5 mg by mouth at bedtime. Active umeclidinium-chong anteroL (Anoro Ellipta) 62.5-25 mcg/actuation blister with device Inhale 1 puff in the morning. Active lisinopril 2.5 mg tabletIndication s:Essential hypertension Take 2 tablets (5 mg) by mouth in the morning. 60 tablet 5 5 07/07/20 25 Active apixaban (Eliquis) 5 mg tabletIndication s:Paroxysmal atrial fibrillation (CMS/HCC) Take 1 tablet (5 mg) by mouth two times daily. 60 tablet 11 5 Active amiodarone (Pacerone) 200 mg tabletIndication s:Persistent atrial fibrillation (CMS/HCC) TAKE 1 TABLET BY MOUTH EVERY MORNING 90 tablet 3 5 Active Active Problems Problem Noted Date Diagnosed Date Dizziness 12/12/2023 Near syncope 12/11/2023 Acute hypoxemic respiratory failure 12/06/2023 12/06/2023 Acute on chronic diastolic heart failure 024 12/06/2023 Acute on chronic respiratory failure with hyperc apnia 11/07/2023 12/06/2023 Cervical cancer 05/21/2023 05/21/2023 Psoriasis 05/21/2023 05/21/2023 Acute on chronic congestive heart failure 202205/21/2023 Chest pain with high risk for cardiac etiology 0 05/03/2023 05/21/2023 Syncope and collapse 04/08/2023 Hypomagnesemia 03/19/2023 05/21/2023 Essential hypertension 10/24/2022 Assessment & Plan (10/24/2022 12:42 PM EST): Hypertension is stable today -continue current medications Obstructive sleep apnea syndrome 10/24/2022 Chronic heart failure with preserved ejection fr action 10/24/2022 Assessment & Plan (10/24/2022 12:41 PM EST): -last echo reviewed, EF 50-55%, no diastolic dysfunction noted -she has been asymptomatic aside fatigue but I believe that is from chronotropic incompetence from combination of beta jazmyn Pulmonary HTN 10/24/2022 Assessment & Plan (10/24/2022 12:50 PM EST): -appears stable per recent echo, no elevated RSVP noted Paroxysmal atrial fibrillation 08/21/2022 Overview (08/21/2022): Added automatically from request for surgery [id number] Assessment & Plan (10/24/2022 12:49 PM EST): -DCCV aborted -EKG today shows sinus bradycardia -will reduce toprolxl 50mg BID to 50mg in the AM and 25mg in PM and reassess fatigue/heart rate -she will call us if there is no improvement and if heart rate stays low as she will monitor at home -she has not ever taken the PRN 25 mg dose for palpitations -[id number]: 5 (age, gender, htn, DM2, hx chf) -continue amiodarone, xarelto, change metoprolol dose for fatigue as noted Asthma 06/07/2022 05/21/2023 COPD (chronic obstructive pulmonary disease) 08/202205/21/2023 Diabetes 06/07/2022 05/21/2023 History of cervical cancer 06/07/202205/21 Hypercarbia 05/16/2022 05/21/2023 Dyspnea 06/20/2021 05/21/2023 Localized edema 04/24/2021 05/21/2023 Class 1 obesity due to excess calories in adult 03/20/2021 05/21/2023 Paroxysmal atrial flutter 06/04/20182022 Encounters Date Type Department Care Team Description 05/12/2025 [facility] [address] [place] [address] Gerardo Cota MD Persistent atrial fibrillation (CMS/HCC) (Primary Dx) from Last 3 Months Family History Medical History Relation Name Comments Coronary artery disease Father Atrial fibrillation Sister Relation Name Status Comments Father Sister Social History Tobacco Use Types Packs/Day Years Used Date Smoking Tobacco: Former Cigarettes Smokeless Tobacco: Never Tobacco Cessation:Counseling Given: Not Answered Alcohol Use Standard Drinks/Week Comments Not Currently 0 (1 standard drink = 0.6 oz pur e alcohol) [place] Safety & Environment Answer Date Rec orded Fear of Current or Ex-Partner Not on file Emotionally Abused Not on file 12/19/2023 Physically Abused Not on file 12/19/2023 Sexually Abused Not on file 12/19/2023 Physically or Sexually Abused Not on file Comments Unknown Sex and Gender Information Value Date Recorded Sex Assigned at Not on file Legal Sex Female 5:40 PM EDT Gender Identity Not on file Sexual Orientation Not on file Last Filed Vital Signs Vital Sign Reading Time Taken Comments Blood Pressure 135/69 01/08/2025 8:55 AM EDT Pulse 62 01/08/2025 8:55 AM EDT Temperature - - Respiratory Rate - - Oxygen Saturation 95% 01/08/2025 8:55 AM EDT Inhaled Oxygen Concentration - - Weight 127 kg (279 lb) 01/08/2025 8:55 AM EDT Height 157.5 cm (5' 2 ) 01/08/2025 8:55 AM EDT Body Mass Index 51.03 01/08/2025 8:55 AM EDT Plan of Treatment Health Maintenance Due Date Last Done Comments CT Colonography 1955 Colonoscopy 1955 Colorectal Cancer Screening 1955 Diabetes: Hemoglobin A1C 1955 FIT-DNA 1955 FIT 1955 FOBT 1955 Medicare Annual Wellness (AWV) 1955 Sigmoidoscopy 1955 Diabetes: Retinopathy Screening 1965 Depression Screening 1967 Diabetes: Urine Protein Screening 1974 Adult Tetanus 1977 Mammogram 1995 Zoster Vaccines (1 of 2) 2005 10/04/2014 Fall Risk Screening 2020 COVID-19 Vaccine ( season) 2024 Influenza Vaccine (#1) 2025 , 08/06/2023, 09/05/2022, Additional history exists Pneumococcal Vaccine: 50+ Years Completed 07/30/2024, 12/12/2023, 08/14/2018 HIB Vaccines Aged Out No longer eligi ble based on patient's age to complete this topic HPV Vaccines Aged Out No longer eligi ble based on patient's age to complete this topic IPV Vaccines Aged Out No longer eligi ble based on patient's age to complete this topic Meningococcal B Vaccine Aged Out No l onger eligible based on patient's age to complete this topic Meningococcal Vaccine Aged Out No andreina marilyn eligible based on patient's age to complete this topic Rotavirus Vaccines Aged Out No longer eligible based on patient's age to complete this topic Insurance [employer] Care Teams Bowling Pin Setters Installer Relationship Specialty Start Date End Date Nikky Hong NP [address] [place] [address] PCP - General Family Medicine 01/08/25
--- OUTSIDE RECORDS SUMMARY | 2025-06-14 09:14 | XMS_ITS | Clinical Summary ---
Author Organization [facility] Address [facility] [id number] [address] [place] [address] Care Team Providers Care Policy Writer Typist Name Role Phone No Pcp, No Pcp Primary Care Provider Unavailabl e Allergies Active Allergy Reactions Criticality Noted Date Comments Meperidine 09/10/2017 Dye 01/16/2018 Other reaction(s): Unknown Iodinated Contrast Media Hives 09/10/2017 Meperidine Hcl Hives 01/16/2018 Medications calcium carbonate-vitamin D3 (OSCAL 500 + D) 500 mg(1,250mg) -200 units per tablet Take 1 tablet by mouth in the morning and 1 tablet in the evening. Take with meals. Active albuterol (PROVENTIL HFA;VENTOLIN HFA) 90 mcg/actuation inhaler Inhale 2 puffs every 6 (six) hours as needed for wheezing. Active albuterol (ACCUNEB) 1.25 mg/3 mL nebulizer solution Inhale 3 mL (1.25 mg total) by nebulization every 6 (six) hours as needed for wheezing. Active metFORMIN (GLUCOPHAGE) 850 mg tablet Take 1,000 mg by mouth in the morning and 1,000 mg in the evening. Take with meals. Active triamcinolone (KENALOG) 0.025 % cream Apply 1 Application topically 2 (two) times a day as needed for irritation. psoriasis Active SYMBICORT 80-4.5 mcg/actuation inhaler Inhale 2 puffs as needed. 02/03/20 21 Active lisinopriL (PRINIVIL,ZESTRIL) 2.5 mg tabletIndications: Essential hypertension,Parox ysmal atrial fibrillation (CMS-HCC),Localize d edema,Shortness of breath Take 1 tablet (2.5 mg total) by mouth daily. 90 tablet 3 03/20/20 21 Active furosemide (LASIX) 40 mg tabletIndications: Pulmonary hypertension (CMS-HCC) Take 1 tablet (40 mg total) by mouth daily. 90 tablet 3 10/19/20 21 Active nystatin (MYCOSTATIN) powder Apply 1 application topically in the morning and 1 application before bedtime. Apply under breasts. 30 g 05/18/20 22 Active ondansetron ODT (ZOFRAN ODT) 4 mg disintegrating tablet Dissolve 1 tablet (4 mg total) on tongue every 8 (eight) hours as needed for nausea for up to 10 doses. 10 tablet 12/07/19 23 Active metoprolol succinate XL (TOPROL XL) 50 mg 24 hr tabletIndications: Essential hypertension,Parox ysmal atrial fibrillation (CMS-HCC),Localize d edema,Shortness of breath TAKE ONE TABLET BY MOUTH EVERY MORNING AND TAKE ONE TABLET BY MOUTH EVERY NIGHT BEFORE BEDTIME 60 tablet 1 02/20/20 23 Active apixaban (ELIQUIS) 5 mg tablet Take 1 tablet (5 mg total) by mouth in the morning and 1 tablet (5 mg total) before bedtime. 02/05/20 23 Active spironolactone (ALDACTONE) 25 mg tablet Take 1 tablet (25 mg total) by mouth in the morning. 03/28/20 22 Active Active Problems Problem Noted Date Diagnosed Date Dizziness 12/12/2023 Near syncope 12/11/2023 Acute on chronic respiratory failure with hyperc apnia 11/07/2023 COPD with acute exacerbation 11/07/2023 Chest pain with high risk for cardiac etiology 0 05/03/2023 Acute on chronic congestive heart failure 2022 Hypomagnesemia 03/19/2023 Syncope and collapse 03/18/2023 Hypercarbia 05/16/2022 Dyspnea 06/20/2021 Localized edema 04/24/2021 Class 1 obesity due to excess calories in adult 03/20/2021 Class 3 severe obesity due t o excess calories without serious comorbidity in adult 02/03/2021 Paroxysmal atrial fibrillation 06/04/2018 Paroxysmal atrial flutter 06/04/2018 Class 3 obesity due to excess calories in adult 06/04/2018 Asthma Cervical cancer History of cervical cancer COPD (chronic obstructive pulmonary disease) Diabetes Essential hypertension Psoriasis Resolved Problems Problem Noted Date Diagnosed Date Resolved Date Chest pain 06/04/2018 Immunizations Immunization Administration Dates Next Due Influenza (IM) Preservative Free 08/07/2017,07/28,08/24/2015 Influenza, Im Trivalent Preservative ,08/31/2013,08/04/2012,07/17 Influenza, Injectable, Mdck, Preservative Free, Quad 09/05/2022,08/18/2020,08/12/2019,08/14 Influenza, Injectable, quadr ivalent (PF) 09/01/2021 Pneumococcal Polysaccharide 12/12/2023, 8 Zoster Live 10/04/2014 Family History Medical History Relation Name Comments Breast cancer Cousin Heart disease Father Diabetes Maternal Grandmother Diabetes Mother Atrial fibrillation Sister 1 Heart attack Sister 2 Relation Name Status Comments Cousin Father Maternal Grandmother Mother Sister 1 Alive Sister 2 Social History Tobacco Use Types Packs/Day Years Used Date Smoking Tobacco: Former Cigarettes Q uit: 10/30/2000 Smokeless Tobacco: Never Tobacco Cessation:Counseling Given: Not Answered Alcohol Use Standard Drinks/Week Comments No 0 (1 standard drink = 0.6 oz pur e alcohol) [facility] Utilities Answer Date Recorded In the past 12 months has e [employer] gas, oil, or water company threatened to [...] Orientation Straight 03/18/2023 9: 07 PM EDT Last Filed Vital Signs Vital Sign Reading Time Taken Comments Blood Pressure 145/67 01/12/2025 8:00 PM EDT Pulse 66 01/12/2025 8:00 PM EDT Temperature 37.1 C (98.7 F) 01/12/2025 3:40 PM EDT Respiratory Rate 20 01/12/2025 3:40 PM EDT Oxygen Saturation 94% 01/12/2025 8:00 PM EDT Inhaled Oxygen Concentration - - Weight 123.8 kg (273 lb) 01/12/2025 3:40 PM EDT Height 157.5 cm (5' 2 ) 01/12/2025 3:40 PM EDT Body Mass Index 49.93 01/12/2025 3:40 PM EDT Plan of Treatment Health Maintenance Due Date Last Done Comments Depression Screening 1967 DTaP,Tdap and Td Vaccines (1 - Tdap) 1974 Zoster (Shingles) Vaccine (1 of 2) 11/29/2014 10/04/2014 Fall Risk Screening 2020 Adult BMI Follow Up Plan 05/05/2025 05/05/2024 Influenza Vaccine 06/28/2025 07/30/2024, , 09/05/2022, Additional history exists Adult BMI Screening 01/12/2026 01/12/2025 Tobacco Screening 01/12/2026 01/12/2025 Goals Goal Patient Goal Type Associated Problems Recent Progress Patient-Stated? Author home with resumption of [facility] General Yes Laura Rutledge LSW Note: Evaluation of progress towards goal: under assessment Medical Devices Not on file Insurance [employer] MEDICARE ADVANTAGE Advance Directives * Full Code (Latest Code Status on File) Date Activated Date Inactivated Comments 12/12/2023 3:12 AM 12/12/2023 9:19 PM * Full Code Date Activated Date Inactivated Comments 11/07/2023 6:33 PM 11/10/2023 7:23 PM * Full Code Date Activated Date Inactivated Comments 05/03/2023 9:35 AM 05/03/2023 6:17 PM * Full Code Date Activated Date Inactivated Comments 03/18/2023 7:04 PM 03/19/2023 5:53 PM * Full Code Date Activated Date Inactivated Comments 05/16/2022 9:42 PM 05/18/2022 7:33 PM Healthcare Agents on File Name Relationship Healthcare Agent Relationshi p Communication Nikky Pandey Daughter [facility] re Agent Care Teams Policy Writer Typist Relationship Specialty Start Date End Date No Pcp, [place] [address] PCP - General Family Medicine 01/12/25
--- OUTSIDE RECORDS SUMMARY | 2025-06-14 09:14 | XMS_ITS | Clinical Summary ---
Author Organization [facility] Address [address] [place] [address] Care Team Providers Care Electric Sign Wirer Name Role Phone JeniferMaggi jordan DO Primary Care Provider [phone] Allergies Active Allergy Reactions Criticality Noted Date Comments Iodinated Contrast Media Hives 09/10/2017 Other Reaction(s): Not available Meperidine Hives 09/10/2017 Other Reaction(s): hives, Not available Medications lisinopril 2.5 MG tablet Take 2.5 mg by mouth Daily Active furosemide (Lasix) 40 MG tablet Take by mouth Active apixaban (Eliquis) 5 MG tablet Take 5 mg by mouth in the morning and 5 mg before bedtime. Active amitriptyline (Elavil) 50 MG tablet Take 25 mg by mouth at bedtime Active albuterol HFA 90 mcg/act inhaler Inhale 2 puffs every 4 (four) hours if needed for wheezing Active metoprolol succinate XL (Toprol-XL) 25 MG 24 hr tablet Take by mouth Do not crush or chew. Active Calcium Carb-Cholecalci ferol (Oyster Shell Calcium w/D) 500-5 MG-MCG tablet Take 1 tablet by mouth in the morning and 1 tablet in the evening. Take with meals. Active simvastatin (Zocor) 5 MG tablet Take 1 tablet by mouth at bedtime 4 Active spironolactone (Aldactone) 25 MG tablet Take 1 tablet by mouth Daily Active glucose blood (OneTouch Verio) test strip 1 each by Other route Daily Use as instructed Active magnesium oxide (Mag-Ox) 400 mg tablet 400 mg Daily Active ergocalciferol (Vitamin D2) 1.25 MG (42590 UT) capsuleIndicati ons:Vitamin D deficiency TAKE 1 CAPSULE BY MOUTH ONCE WEEKLY 12 capsule 1 5 Active metFORMIN, OSM, (Fortamet) 1000 MG 24 hr tabletIndicatio ns:Type 2 diabetes mellitus with hyperglycemia, without long-term current use of insulin (HCC) Take 1 tablet (1,000 mg) by mouth in the morning and 1 tablet (1,000 mg) in the evening. Take with meals. Do not crush, chew, or split. 180 tablet 1 5 11/08/19 26 Active metFORMIN (Glucophage) 1000 MG tabletIndicatio ns:Type 2 diabetes mellitus with hyperglycemia, without long-term current use of insulin (HCC) Take 1 tablet (1,000 mg) by mouth in the morning and 1 tablet (1,000 mg) in the evening. Take with meals. 180 tablet 3 5 05/18/20 26 Active Active Problems No known active problems Encounters Date Type Department Care Team Description 05/18/2025 Telephone [facility] [address] [place] [phone] Errol Etienne MD Med Refill 05/12/2025 9:40 AM EDT Office Visit [facility] [address] [place] [address] Errol Etienne MD Type 2 diabetes mellitus with hyperglycemia, without long-term current use of insulin (HCC) (Primary Dx); Vitamin D deficiency; Primary hypertension ; Encounter for dietary consultation; Class 3 severe obesity due to excess calories with serious comorbidity and body mass index (BMI) of 60.0 to 69.9 in adult ([facility]) 05/12/2025 Bamboo flowsheet [facility] [address] [place] [id number] Errol Etienne MD 04/26/2025 Refill [facility] [address] [place] [phone] Errol Etienne MD Vitamin D deficiency from Last 3 Months Immunizations Immunization Administration Dates Next Due Influenza, injectable, MDCK, preservative free, quadrivalent 08/06/2023,09/05/2022,08/18/2020,08/12,08/14/2018 Influenza, injectable, quadr ivalent, preservative free 09/01/2021 Influenza, seasonal, injectable 07/23/20 14,08/31/2013,08/04/2012,07/17 Influenza, seasonal, injecta ble, preservative free 08/07/2017,08/15/2016,08/24/2015 Pneumococcal Polysaccharide PPSV23 12/12/2023, Zoster, live 10/04/2014 Family History Medical History Relation Name Comments Diabetes Cousin COPD Father Heart disease Father Diabetes Maternal Grandmother Diabetes Mother Relation Name Status Comments Cousin Alive Father Maternal Grandmother Mother Alive Social History Tobacco Use Types Packs/Day Years Used Date Smoking Tobacco: Former Cigarettes Smokeless Tobacco: Never Tobacco Cessation:Counseling Given: No Alcohol Use Standard Drinks/Week Comments Not Currently 0 (1 standard drink = 0.6 oz pur e alcohol) Comments Unknown Sex and Gender Information Value Date Recorded Sex Assigned at Not on file Legal Sex Female 7:17 PM EDT Gender Identity Not on file Sexual Orientation Not on file Last Filed Vital Signs Vital Sign Reading Time Taken Comments Blood Pressure 110/60 11/11/2024 9:42 AM EST Pulse 65 05/12/2025 9:34 AM EDT Temperature - - Respiratory Rate 16 05/12/2025 9:34 AM EDT Oxygen Saturation 90% 05/12/2025 9:34 AM EDT Inhaled Oxygen Concentration - - Weight 154 kg (340 lb) 11/11/2024 9:42 AM EST Height 157.5 cm (5' 2 ) 05/12/2025 9:34 AM EDT Body Mass Index 62.19 11/11/2024 9:42 AM EST Plan of Treatment Upcoming Encounters Date Type Department Care Team (Late st Contact Info) Description 11/10/2025 9:30 AM EST Office Visit [facility] [address] [place] [address] Errol Etienne MD [address] [place] [address] Procedures Procedure Name Priority Date/Time Associated Diagnosis Comments POCT GLYCOSYLATED HEMOGLOBIN (HGB A1C) Routine 05/12/2025 9:37 AM EDT Type 2 diabetes mellitus with hyperglycemia, without long-term current use of insulin (HCC) POCT GLUCOSE Routine 05/12/2025 9:37 AM EDT Type 2 diabetes mellitus with hyperglycemia, without long-term current use of insulin (HCC) from Last 3 Months Results * POCT glycosylated hemoglobin (Hb A1C) docked device (05/12/2025 9:37 AM EDT) Hemoglobin A1C 6.5 Blood Venous blood specimen / Unknown 05/12/2025 9:37 AM EDT Errol Etienne MD POINT OF CARE TEST ENTER/EDIT ORDERABLES Final Result * POCT glucose manually resulted (05/12/2025 9:37 AM EDT) Glucose Blood, POC 136 mg/dL Blood Capillary blood specimen / Unknown 05/12/2025 9:37 AM EDT Errol Etienne MD POINT OF CARE TEST ENTER/EDIT ORDERABLES Final Result from Last 3 Months Insurance [id number] Care Teams Electric Sign Wirer Relationship Specialty Start Date End Date Maggi Polk DO [address] [place] [address] PCP - General Family Medicine 02/25/24
--- OUTSIDE RECORDS SUMMARY | 2025-06-14 09:14 | XMS_ITS | Clinical Summary ---
Author Organization [facility] Address [address] [place] [address] Phone Care Team Providers Care Greaser And Oiler Name Role Phone Unavailable Primary Care Provider Unavailabl e Social History Tobacco Use Types Packs/Day Years Used Date Smoking Tobacco: Never Assessed Comments Unknown Sex and Gender Information Value Date Recorded Sex Assigned at Not on file Legal Sex Female 4:09 PM EST Gender Identity Not on file Sexual Orientation Not on file Plan of Treatment Not on file
--- OUTSIDE RECORDS SUMMARY | 2025-06-14 09:14 | XMS_ITS | Encounter Summary ---
Author Organization [email or web address] Address [id number] [address] [place] [address] Care Team Providers Care Braided Rug Maker Name Role Phone No Pcp, No Pcp Primary Care Provider Unavailabl e Reason for Visit * Reason Onset Date Comments Rapid Heart Rate 11/07/2020 Encounter Details Date Type Department Care Team (Late st Contact Info) Description 11/07/2020 [facility] [address] [place] [address] Magui Campbell RN Rapid Heart Rate Social History Tobacco Use Types Packs/Day Years Used Date Smoking Tobacco: Former Cigarettes Q uit: 10/30/2000 Smokeless Tobacco: Never Alcohol Use Standard Drinks/Week Comments No 0 (1 standard drink = 0.6 oz pur e alcohol) Childcare Answer Date Recorded Childcare Unknown 04/08/2019 Employment Answer Date Recorded Employment Unknown 04/08/2019 Comments No Sex and Gender Information Value [...] have Coronavirus / COVID-19? No / Unsure 10/30/2020 4:01 PM EST documented as of this encounter Miscellaneous Notes * Telephone Encounter - Magui Campbell RN - 11/07/2020 10:28 AM EST Pt calls to report that her Metformin has been increased to 1000mg BID And she believes this is causing her heart to race. As per your instructions pt has been taking an extra dose of Metoprolol and has needed to do this 3 times in the past week. thanks Magui Campbell RN 11/07/20 1035 * Telephone Encounter - Satish Benedict MD - 11/07/2020 10:28 AM EST Continue to observe see if her symptoms improve. If not to contact our office again. * Telephone Encounter - Magui Campbell RN - 11/07/2020 10:28 AM EST Pt says Metformin was changedto 500mg TID and has had fewer episodes of increased heart rate-pt will speak with pcp tomorrow and let us know if any further changes documented in this encounter Plan of Treatment Not on file documented as of this encounter Visit Diagnoses Not on filedocumented in this encounter Additional Health Concerns Infection Onset Date Last Indicated Resolved Time COVID-19 Rule-Out 05/16/2022 05/16/2022 05/16/2022 6:46 PM EDT COVID-19 Rule-Out 12/07/2022 12/07/2022 12/07/2022 2:28 PM EST COVID-19 Rule-Out 03/18/2023 03/18/2023 03/18/2023 6:13 PM EDT COVID-19 Rule-Out 11/07/2023 11/07/2023 11/07/2023 5:25 PM EST documented as of this encounter Care Teams Braided Rug Maker Relationship Specialty Start Date End Date No Pcp, [place] [address] PCP - General Family Medicine 01/12/25 documented as of this encounter
--- OUTSIDE RECORDS SUMMARY | 2025-06-14 09:21 | XMS_ITS | CCD ---
Author Organization [facility] Care Team Providers Care Director Of Preclinical Research Name Role Phone NON STAFF Primary Care Provider UnavailDO Jay Longoria Admit Provider MD Rafat Vences Attending Provider [phone] MAGGI PATEL Primary Care Physician DEEPA AUGUSTIN Attending Unavailable DEEPA AUGUSTIN Consulting Unavailable DEEPA AUGUSTIN Admitting Unavailable [facility] Primary Care Unavailable DR RAMY MIXON Consulting Unavailable LIS QUINONEZ Attending Unavailable LIS QUINONEZ Admitting Unavailable [facility] Primary Care Unavailable LIS QUINONEZ Consulting Unavailable RILEY MAYO Attending Unavailable RILEY MAYO Consulting Unavailable RILEY MAYO Admitting Unavailable Maggi Patel DO Primary Care Provider Nikky Hong APRN Attending Provider MAGGI PATEL Primary Care Unavailable AMANDA MAGGI Primary Care Unavailable JORGE L KHAN Attending Unavailable SERVICES, [facility] Primary Care Unava ilable ACACIA, AHMAD Attending Unavailable ACACIA, AHMAD Attending Unavailable ACACIA, AHMAD Referring Unavailable SERVICES, [facility] Primary Care Unava ilable ACACIA, AHMAD Attending Unavailable ACACIA, AHMAD Referring Unavailable SERVICES, [facility] Primary Care Unava ilable MORRIS, AHMAD F Referring Unavailable SERVICES, [facility] Primary Care Unava ilable NO PCP, NO PCP Primary Care Unavailable CLAUDETTE STRAUSS Attending Unavailable JOHN HARRISON Attending Unavailable Nikky Hong APRN Primary Care Provider Douglas Marie MD Attending Provider Douglas Marie Admitting Unavailable Douglas Marie Attending Unavailable Nikky Hong Primary Care Unavailable Nikky Hong Admitting Unavailable Nikky Hong Attending Unavailable NO FAMILY, PHYSICIAN Primary Care Unavailable Douglas Marie Admitting Unavailable Douglas Marie Attending Unavailable Nikky Hong Primary Care Unavailable ERROL CACERES Attending Unavailable ERROL CACERES F Attending Unavailable JAYE CACERESMALinda F Referring Unavailable Nikky Hong APRN Primary Care Provider Nikky Hong APRN Attending Provider Allergies Allergy Classification Reported Allergen(s) Allergy Type Date of Onset Reaction(s) Facility (17 sources) Meperidine; Translations: [Meperidine] Drug Allergy 7 [facility] (disorder), [facility] (15 sources) Iodinated Contrast Media; Translations: [IODINATED CONTRAST MEDIA] Allergy to substance 7 [facility] (3 sources) Contrast media; Translations: [Contrast Dye] Drug allergy Weal (disorder) [facility] (1 source) Meperidine; Translations: [Demerol] Drug Allergy [facility] Repository (2 sources) Contrast media; Translations: [DYE] Propensity to adverse reactions to drug (disorder) 8 [facility] (1 source) Meperidine; Translations: [MEPERIDINE HCL] Drug Allergy 8 [facility] Rep[facility] Medications Current Medications Medication Drug Class(es) Dates Sig (Normalized) Sig (Original) Albuterol (14 sources) beta2-Adrenergic Agonist Start: 06-06-2022 albuterol Refills(s) 0 Start Date: 06/06/22 Status: Ordered Start: 01-19-2022 Albuterol Sulf ate 90 mcg/actuation HFA aerosol inhaler Active 90 MCG INHALATION Q4H as needed for Shortness Of Breath January 19, 2022 12:00am Complies with drug therapy take 2 puff(s) by in halation every four hours for wheezing albuterol HFA 90 mcg/act inhaler Inhale 2 puffs every 4 (four) hours if needed for wheezing Active amiodarone hydrochloride 200 mg oral tablet (5 sources) Antiarrhythmic Start: 12-24-2024 take 1 tablet by mouth once daily in the morning Amiodarone 200 mg tablet Active 200 MG PO Every morning December 24, 2024 1:00am Complies with drug therapy amitriptyline hydrochloride 50 mg oral tablet (14 sources) Tricyclic Antidepressant Start: 12-24-2024 End: 03-15-2025 take 1 tablet by mouth once daily at bedtime Amitriptyline 50 mg tablet Active 50 MG PO Daily at bedtime 90 90 March 15, 2025 11:06am Complies with drug therapy amitriptyline (E lavil) 50 MG tablet Take 25 mg by mouth at bedtime Active apixaban 5 mg oral tablet (6 sources) Factor Xa Inhibitor take 1 tablet by mouth in the morning apixaban (Eliquis) 5 MG tablet Take 5 mg by mouth in the morning and 5 mg before bedtime. Active Calcium Carbonate / vitamin D3 (1 source) Start: Calcium Carbonate-Vitamin D3 Active TAB TABLET January 19, 2022 4:52am DULoxetine 60 mg delayed release oral capsule (5 sources) Serotonin and Norepinephrine Reuptake Inhibitor Start: 025 take 1 capsule by mouth once daily in the morning Duloxetine 60 mg capsule,delayed release(DR/EC) Active 60 MG PO Every morning December 24, 2024 1:00am Complies with drug therapy ergocalciferol 1.25 mg oral capsule (11 sources) Provitamin D2 Compound Start: 025 take 1 capsule by mouth every week ergocalciferol (Vitamin D2) 1.25 MG (13766 UT) capsule Indications: Vitamin D deficiency TAKE 1 CAPSULE BY MOUTH ONCE WEEKLY 12 capsule 1 04/26/2025 Active Start: 10-26-2024 take 1 capsule by mo uth every week ergocalciferol (Vitamin D2) 1.25 MG (83637 UT) capsule Indications: Vitamin D deficiency TAKE ONE CAPSULE BY MOUTH ONCE WEEKLY 12 capsule 1 10/26/2024 Active furosemide 40 mg oral tablet (20 sources) Loop Diuretic Start: 06-08-2025 take 1 tablet by mouth once daily in the morning Furosemide (Lasix) 40 mg tablet Active 40 MG PO Every morning June 08, 2025 12:00am Complies with drug therapy Start: 06-06-2022 furosemide Carmen ly, Refills(s) 0 Start Date: 06/06/22 Status: Ordered Start: 01-20-2022 End: 12-24-2024 take 1 tablet by mouth twice daily Furosemide (Lasix) 40 mg tablet Discontinued 40 MG PO Twice daily 60 January 20, 2022 12:00am December 24, 2024 10:03am Start: 01-19-2022 End: 01-20-2022 take 40 mg by mouth once daily Furosemide Discontinued 40 MG PO Daily January 19, 2022 4:52am January 20, 2022 2:36pm Start: 01-19-2022 End: 01-20-2022 take 2 tablets by mouth once daily Furosemide 20 mg tablet Discontinued 40 MG PO Daily January 19, 2022 12:00am January 20, 2022 2:36pm lisinopril 2.5 mg oral tablet (15 sources) Angiotensin Converting Enzyme Inhibitor Start: 06-08-2025 take 2 tablets by mouth once daily in the morning Lisinopril 2.5 mg tablet Active 5 MG PO Every morning June 08, 2025 9:12am Complies with drug therapy Start: 06-06-2022 lisinopril Ora l, Daily, Refills(s) 0 Start Date: 06/06/22 Status: Ordered Start: 01-19-2022 End: 06-08-2025 take 1 tablet by mouth once daily in the morning Lisinopril 2.5 mg Tablet Discontinued 2.5 MG PO Every morning January 19, 2022 12:00am June 08, 2025 9:12am Magnesium (3 sources) Start: 03-25-2025 take 1 tablet by davdi th once daily Magnesium 250 mg tablet Active 250 MG PO Daily March 25, 2025 12:00am Complies with drug therapy Start: 03-25-2025 take 1 tablet by david th once daily Magnesium 250 mg tablet Active 250 MG PO Daily March 25, 2025 12:00am Magnesium Oxide (5 sources) magnesium oxide (Mag-Ox) 400 mg tablet 400 mg Daily Active osmotic 24 hr metFORMIN hydrochloride 1000 mg extended release oral tablet (16 sources) Biguanide Start: 05-12-2025 End: 11-08-2025 take 1 tablet by mouth in the morning, then take 1 tablet by mouth every twenty-four hours at mealtime metFORMIN, OSM, (Fortamet) 1000 MG 24 hr tablet Indications: Type 2 diabetes mellitus with hyperglycemia, without long-term current use of insulin (HCC) Take 1 tablet (1,000 mg) by mouth in the morning and 1 tablet (1,000 mg) in the evening. Take with meals. Do not crush, chew, or split. 180 tablet 1 05/12/2025 11/08/2025 Active Start: 06-06-2022 metformin Oral , Refills(s) 0 Start Date: 06/06/22 Status: Ordered Start: 01-19-2022 take 1 tablet by david th twice daily at mealtime Metformin 1,000 mg tablet Active 1000 MG PO Twice daily with meals January 19, 2022 12:00am Complies with drug therapy Metoprolol (14 sources) beta-Adrenergic Jessica Start: 06-06-2022 metopr olol Refills(s) 0 Start Date: 06/06/22 Status: Ordered Start: 01-19-2022 End: 12-24-2024 take 1 tablet by mouth once daily Metoprolol Succinate 50 mg tablet extended release 24 hr Discontinued 50 MG PO Daily January 19, 2022 12:00am December 24, 2024 9:56am take 1 tablet by david th every twenty-four hours metoprolol succinate XL (Toprol-XL) 25 MG 24 hr tablet Take by mouth Do not crush or chew. Active Xarelto (8 sources) Factor Xa Inhibitor Start: 06-06-2022 Xarelto Or al, Refills(s) 0 Start Date: 06/06/22 Status: Ordered Start: 01-19-2022 End: 03-25-2025 take 1 tablet by mouth at bedtime Rivaroxaban (Xarelto) 20 mg tablet Discontinued 20 MG PO Bedtime January 19, 2022 12:00am March 25, 2025 1:06pm spironolactone 25 mg oral tablet (15 sources) Aldosterone Antagonist Start: 06-08-2025 take 1 tablet by mouth once daily Spironolactone 25 mg tablet Active 25 MG PO Daily June 08, 2025 12:00am Complies with drug therapy Start: 06-06-2022 spironolactone Oral, Refills(s) 0 Start Date: 06/06/22 Status: Ordered Start: 01-19-2022 End: 03-25-2025 take 1 tablet by mouth once daily Spironolactone 25 mg tablet Discontinued 25 MG PO Daily January 19, 2022 12:00am March 25, 2025 1:05pm Umeclidinium-Vilanterol (3 sources) Anticholinergic, beta2-Adrenergic Agonist Start: 12-24-2024 Umeclidinium-Vilanterol (Anoro Ellipta) 62.5-25 mcg/actuation blister with device Active 2 INH INHALATION Every morning December 24, 2024 1:00am Complies with drug therapy Start: 12-24-2024 Umeclidinium-V ilanterol (Anoro Ellipta) 62.5-25 mcg/actuation blister with device Active 2 INH INHALATION Daily December 24, 2024 12:00am Umeclidinium-Vilanterol (Ano ro Ellipta) 62.5-25 mcg/actuation blister with device (2 sources) Start: 12-24-2024 Umeclidinium-V ilanterol (Anoro Ellipta) 62.5-25 mcg/actuation blister with device Active 2 INH INHALATION Every morning December 24, 2024 1:00am Completed/Discontinued Medications Medication Drug Class(es) Dates Sig (Normalized) Sig (Original) calcium carbonate 1250 mg / cholecalciferol 200 unt oral tablet (7 sources) Vitamin D Start: 01-19-2022 End: 12-24-2024 Calcium Carbonate-Vitamin D3 500 mg-5 mcg (200 unit) Tablet Discontinued TAB January 19, 2022 12:00am December 24, 2024 9:55am Calcium Carbonate-Vitamin D3 500 mg-5 mcg (200 unit) Tablet (4 sources) Start: 01-19-2022 End: 12-24-2024 Calcium Carbonate-Vitamin D3 500 mg-5 mcg (200 unit) Tablet Discontinued TAB TABLET January 19, 2022 12:00am December 24, 2024 9:55am Start: 01-19-2022 End: 12-24-2024 Calcium Carbonate-Vitamin D3 500 mg-5 mcg (200 unit) Tablet Discontinued TAB TABLET January 18, 2022 11:00pm December 24, 2024 8:55am cephalexin 500 mg oral capsule (6 sources) Cephalosporin Antibacterial Start: 12-24-2024 End: 03-16-2025 take 1 capsule by mouth twice daily Cephalexin 500 mg capsule Discontinued 500 MG PO Twice daily 14 December 24, 2024 1:00am March 16, 2025 9:14am Start: 06-06-2022 Keflex 500 mg Cap See Instructions, Take 1 tablet 1 day prior to procedure, and then 1 tab day of procedure after procedure, # 2 tab(s), Refills(s) 0, Pharmacy: [facility] [id number], 153, cm, 06/06/22 9:28:00 EDT, Height/Length Dosing, 157, kg, 06/06/22 9:28:00 EDT... Start Date: 06/06/22 Status: Ordered doxycycline monohydrate 100 mg oral capsule (3 sources) Tetracycline-class Drug Start: 03-16-2025 End: 03-25-2025 take 1 capsule by mouth twice daily Doxycycline Monohydrate 100 mg capsule Discontinued 100 MG PO Twice daily 10 05March 16, 2025 12:00am March 25, 2025 1:01pm rosuvastatin calcium 10 mg oral tablet (10 sources) HMG-CoA Reductase Inhibitor Start: 12-24-2024 End: 03-25-2025 take 1 tablet by mouth once daily Rosuvastatin 10 mg tablet Discontinued 10 MG PO Daily December 24, 2024 1:00am December 24, 2024 10:02am Start: 12-24-2024 End: 12-24-2024 take 1 tablet by mouth once daily Rosuvastatin 10 mg tablet Discontinued 10 MG PO Daily December 24, 2024 1:00am December 24, 2024 10:02am simvastatin 5 mg oral tablet (17 sources) HMG-CoA Reductase Inhibitor Start: 06-04-2024 End: 03-25-2025 take 1 tablet by mouth once daily Simvastatin 5 mg tablet Discontinued 5 MG PO Daily December 24, 2024 1:00am March 15, 2025 11:08am Problems Active Problems Problem Classification Problem Date Documented Da te Episodic/Chronic Administrative/social admission (11 sources) Patient encounter status; Translations: [Dietary counseling and surveillance] Onset: 05-05-2024 11-11-2024 Episodic Cancer of cervix (3 sources) Malignant tumor of cervix; Translations: [Malignant neoplasm of cervix uteri, unspecified] 03-25-2025 Chronic Comment on above: 1985 Cardiac dysrhythmias (9 sources) Paroxysmal atrial fibrillation; Translations: [Atrial fibrillation] Onset: 06-22-2022 Chronic Cataract (1 source) Posterior subcapsular polar age-related cataract, right eye; Translations: [Posterior subcapsular polar age-related cataract, right eye] Onset: 04-01-2025 Chronic Chronic obstructive pulmonary disease and bronchiectasis (4 sources) Chronic obstructive lung disease; Translations: [Chronic obstructive pulmonary disease, unspecified] 12-28-2024 Chronic Chronic obstructive pulmonary disease and bronchiectasis (6 sources) Bronchitis; Translations: [Bronchitis, not specified as acute or chronic] 03-16-2025 Episodic Chronic obstructive pulmonary disease and bronchiectasis (1 source) Chronic obstructive pulmonary disease and bronchiectasis Congestive heart failure; nonhypertensive (9 sources) Acute on chronic diastolic heart failure; Translations: [Acute on chronic diastolic (congestive) heart failure] Onset: 01-08-2025 01-19-2022 Chronic Comment on above: Problem List clean-u p per request of Phys. EHR Cmte Diabetes mellitus with complications (4 sources) Hyperglycemia due to type 2 diabetes mellitus; Translations: [Type 2 diabetes mellitus with hyperglycemia] 11-11-2024 Chronic Diabetes mellitus without complication (5 sources) Type 2 diabetes mellitus without complications; Translations: [Diabetes mellitus] Onset: 05-05-2024 12-28-2024 Chronic Disorders of lipid metabolism (8 sources) Hypercholesterolemia ; Translations: [Pure hypercholesterolemia , unspecified] Onset: 01-08-2025 12-24-2024 Chronic Essential hypertension (11 sources) Essential hypertension; Translations: [Essential (primary) hypertension] Onset: 10-24-2022 11-11-2024 Chronic Genitourinary symptoms and ill-defined conditions (4 sources) Stress incontinence (female) (male); Translations: [Genuine stress incontinence] Onset: 06-06-2022 Chronic Genitourinary symptoms and ill-defined conditions (7 sources) Blood in urine; Translations: [Gross hematuria] Onset: 06-06-2022 Episodic Nonspecific chest pain (2 sources) Chest pain, unspecified; Translations: [Chest pain, unspecified] Onset: 05-21-2023 Episodic Nutritional deficiencies (4 sources) Vitamin D deficiency; Translations: [Vitamin D deficiency, unspecified] 11-11-2024 Chronic Other aftercare (1 source) Long-term current use of anticoagulant; 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 EHR Cmte Other nutritional; endocrine; and metabolic disorders (1 source) Morbid (severe) obesity due to excess calories; Translations: [Morbid obesity] Chronic Other nutritional; endocrine; and metabolic disorders (4 sources) Severe obesity; Translations: [Class 3 severe obesity due to excess calories with serious comorbidity and body mass index (BMI) of 60.0 to 69.9 in adult ([facility])] 11-11-2024 Chronic Other nutritional; endocrine; and metabolic disorders (1 source) Hypomagnesemia; Translations: [Hypomagnesemia] Onset: 01-12-2025 Chronic Other upper respiratory disease (4 sources) Seasonal allergy; Translations: [Other seasonal allergic rhinitis] 03-16-2025 Chronic Other upper respiratory disease (2 sources) Other seasonal allergic rhinitis; Translations: [Allergic rhinitis, cause unspecified] 03-16-2025 Chronic Pulmonary heart disease (2 sources) Pulmonary hypertension, unspecified; Translations: [Pulmonary hypertension, unspecified] Onset: 10-24-2022 Chronic Residual codes; unclassified (4 sources) Obstructive sleep apnea syndrome; Translations: [Obstructive sleep apnea (adult) (pediatric)] 12-28-2024 Chronic Residual codes; unclassified (3 sources) Disturbance in sleep behavior; Translations: [Sleep disorder, unspecified] 03-15-2025 Episodic Residual codes; unclassified (3 sources) Postmenopausal state; Translations: [Asymptomatic menopausal state] 12-28-2024 Episodic Respiratory failure; insufficiency; arrest (adult) (7 sources) Acute hypoxemic respiratory failure; Translations: [Acute respiratory failure with hypoxia] 01-19-2022 Episodic Comment on above: Problem List clean-u p per request of Phys. EHR Cmte Screening and history of mental health and substance abuse codes (2 sources) H/O: Disorder; Translations: [Personal history of nicotine dependence] Onset: 06-06-2022 Episodic Syncope (2 sources) Syncope and collapse; Translations: [Syncope and collapse] Onset: 04-08-2023 Episodic Unclassified (1 source) CONTACT W/AND (SUSP) EXPOS COVID-19; Translations: [CONTACT W/AND (SUSP) EXPOS COVID-19] Onset: 08-26-2022 Unclassified (1 source) EMS Onset: 02-07-2024 Urinary tract infections (8 sources) Urinary tract infectious disease; Translations: [Urinary tract infection, site not specified] Onset: 12-24-2024 12-24-2024 Episodic Past or Other Problems Problem Classification Problem Date Documented Da te Episodic/Chronic Conditions associated with dizziness or vertigo (1 source) Dizziness and giddiness; Translations: [Dizziness and giddiness] Onset: 02-07-2024 Episodic Other lower respiratory disease (1 source) Shortness of breath; Translations: [Shortness of breath] Onset: 05-16-2022 Episodic Other lower respiratory disease (1 source) Shortness of breath Onset: 02-07-2024 Episodic Results Test Name Value Interpretation Reference Range Facility Glucose (Bld) [Mass/Vol]Orde red By: Marilyn Powell on 05-12-2025 Glucose Blood, POC 136 mg/dL [facility] - Hematology and Cell countson 05-12-2025 HbA1c (Bld) [Mass fraction] 6.5 % [facility] No Panel InformationOrdered By: Marilyn Powell on 05-12-2025 [facility] Glucose Glucometer (BldC) [M ass/Vol]Ordered By: Douglas Marie on 04-01-2025 Glucose [Mass/Vol] Capillary blood glucose measurement by glucometer (mass/volume) [facility] Comment on above: Random Glucose Refer ence Range is dependent on time and content of last meal. Glucose of more than 200 mg/dL in a nonstressed, ambulatory subject supports the diagnosis of Diabetes Mellitus. Glucose Poct Glucometerson 0 04-01-2025 Commemt1 Glu2: Cleaned Meter Normal [facility] Comment on above: Result Comment: PERF ORMED BY: [facility] [address] [place] [address] PATHOLOGIST REST[employer]ANT H[employer]PITAL[employer] MANAGER DANK CHAPIN M.D. Performed By: #### G LULS #### Point of Care testing , Glucose [Mass/Vol] 89 mg/dL Normal [facility] Comment on above: Result Comment: [place] om Glucose Reference Range is dependent on time and content of last meal. Glucose of more than 200 mg/dL in a nonstressed, ambulatory subject supports the diagnosis of Diabetes Mellitus. PERFORMED BY: [facility] [address] [place] [address] PATHOLOGIST [employer] H[employer]ITAL[employer] MANAGER DANK CHAPIN M.D. Performed By: #### G LULS #### Point of Care testing , Glucose Poct GlucometersOrde red By: Douglas Marie on 04-01-2025 Glucose [Mass/Vol] 101 mg/dL [facility] Comment on above: Result Comment: [place] om Glucose Reference Range is dependent on time and content of last meal. Glucose of more than 200 mg/dL in a nonstressed, ambulatory subject supports the diagnosis of Diabetes Mellitus. Performed By: #### G LULS #### Point of Care testing , Random Glucose Refer ence Range is dependent on time and content of last meal. Glucose of more than 200 mg/dL in a nonstressed, ambulatory subject supports the diagnosis of Diabetes Mellitus. No Panel InformationOrdered By: Douglas Marie on 04-01-2025 Bedside Glucose Comment Glu2: cleaned meter [facility] 36on 01-14-2025 36 Spoke w/ patient to discuss options for cost assistance related to Eliquis. Patient states she currently has been off Eliquis since September due to higher deductible plan with [employer] ($590). Patient reports that she is switching back to [facility] insurance starting 01/26 and her new deductible is $340. She already has money set aside to pay deductible when she picks up the Eliquis at this time. Patient would like to continue on Eliquis if she is able. Will send updated prescription to [facility] in [place] for patient to fill in January once new insurance is active. No further needs at this time. Normal [facility] Telephoneon 01-14-2025 Telephone [phone] Diana Oliver 1955 F Date Provider Department Center 01/14/2025 E[place]IE MAL[place] [facility] Family History Problem Relation Age of Onset Coronary artery disease Father Atrial fibrillation Sister Family Status - Relation Status Age at Father Sister Normal [facility] CBC AND AUTO DIFFon 01-13-20 ABSOLUTE BASOPHIL 0.0 X10E9/L Normal 0.0-0.2 [facility] Comment on above: Performed By: #### C BCA, 30995-0, 32513-1, CMP, 95181-2, 88914-0 #### [facility] ([id number]) [address] [place] [id number] ABSOLUTE NEUTROPHIL 3.5 X10E9/L Normal 1.5-6.6 [facility] Comment on above: Performed By: #### C BCA, 09587-1, 60389-4, CMP, 85855-3, 30785-8 #### [facility] ([id number]) [address] [place] [address] 09074 Basophils/100 WBC (Bld) 0.4 % Normal [facility] Comment on above: Performed By: #### C BCA, 39086-4, 34766-0, CMP, 41458-2, 86457-1 #### [facility] ([id number]) [address] [place] [address] 6[address] Eosinophils (Bld) [#/Vol] 0.1 10*3/uL Normal 0.0-0.4 [facility] Comment on above: Performed By: #### C BCA, 58358-0, 08577-3, CMP, 64033-5, 52295-4 #### [facility] ([id number]) [address] [place] [address] 38894 Eosinophils/100 WBC (Bld) 1.3 % Normal [facility] Comment on above: Performed By: #### C BCA, 09527-8, 50054-9, CMP, 42637-9, 04108-0 #### [facility] ([id number]) [address] [place] [address] 20336 Erythrocyte distribution width (RBC) [Ratio] 14.3 % Normal 11.5-15.0 [facility] Comment on above: Performed By: #### Haroon BARBA, 95497-5, 51670-4, CMP, 04197-3, 96381-3 #### [facility] ([id number]) [address] [place] [address] 67652 Hematocrit (Bld) [Volume fraction] 37.3 % Normal 35-47 [facility] Comment on above: Performed By: #### C BCA, 83258-6, 27787-6, CMP, 91469-3, 11272-9 #### [facility] ([id number]) [address] [place] [address] 19387 Hemoglobin (Bld) [Mass/Vol] 12.3 g/dL Normal 11.7-15.5 [facility] Comment on above: Performed By: #### Haroon BCA, 12413-6, 69387-7, CMP, 50950-3, 81660-2 #### [facility] ([id number]) [address] [place] [address] 77746 Lymphocytes (Bld) [#/Vol] 2.4 10*3/uL Normal 1.0-3.5 [facility] Comment on above: Performed By: #### C BCA, 91821-7, 24662-6, CMP, 14678-5, 16939-9 #### [facility] ([id number]) [address] [place] [address] [place] [address] Lymphocytes/100 WBC (Bld) 36.8 % Normal [facility] Comment on above: Performed By: #### Haroon BARBA, 88957-8, 56518-6, CMP, 90697-8, 76144-3 #### [facility] [place] ([id number]) [address] [place] [address] 20448 MCH (RBC) [Entitic mass] 28.7 pg Normal 27-34 [facility] Comment on above: Performed By: #### Haroon BARBA, 33425-8, 15237-9, CMP, 09250-8, 87514-2 #### [facility] ([id number]) [address] [place] [address] 80788 MCHC (RBC) [Mass/Vol] 33.0 g/dL Normal 32-36 [facility] Comment on above: Performed By: #### Haroon BARBA, 26941-2, 04722-8, CMP, 60432-2, 52498-2 #### [facility] ([id number]) [address] [place] [address] 37567 MCV (RBC) [Entitic vol] 87 fL Normal 80-100 [facility] Comment on above: Performed By: #### Haroon BARBA, 94754-9, 53087-6, CMP, 51074-6, 12176-9 #### [facility] ([id number]) [address] [place] [address] 33356 Monocytes (Bld) [#/Vol] 0.5 10*3/uL Normal 0-0.9 [facility] Comment on above: Performed By: #### Haroon BARBA, 12973-4, 37687-0, CMP, 55968-8, 04603-1 #### [facility] [place] ([id number]) [address] [place] [address] 89400 Monocytes/100 WBC (Bld) 7.2 % Normal [facility] Comment on above: Performed By: #### C BCA, 79534-8, 38109-3, CMP, 14331-0, 00324-6 #### [facility] [place] ([id number]) [address] [place] [address] 57418 Neutrophils/100 WBC (Bld) 54.3 % Normal [facility] Comment on above: Performed By: #### Haroon BCA, 87496-8, 27360-0, CMP, 72723-0, 73627-7 #### [facility] ([id number]) [address] [place] [address] 42507 Platelet mean volume (Bld) [Entitic vol] 9.4 fL Normal 7-12 [facility] Comment on above: Performed By: #### Haroon BCA, 00502-5, 52166-0, CMP, 43362-5, 35842-2 #### [facility] ([id number]) [address] [place] [address] 05977 Platelets (Bld) [#/Vol] 189 10*3/uL Normal 150-450 [facility] Comment on above: Performed By: #### Haroon BCA, 31324-3, 29560-8, CMP, 14101-8, 64644-9 #### [facility] [place] ([id number]) [address] [place] [address] 23352 RBC COUNT 4.29 X10E12/L Normal 3.80-5.20 [facility] Comment on above: Performed By: #### Haroon BCA, 64840-2, 97443-2, CMP, 40714-9, 98548-7 #### [facility] ([id number]) [address] [place] [address] 45186 WBC (Bld) [#/Vol] 6.5 10*3/uL Normal 4.0-11.0 [facility] Comment on above: Performed By: #### Haroon BCA, 88971-8, 62715-5, CMP, 27346-7, 66557-6 #### [facility] ([id number]) [address] [place] [address] 65933 COMPREHENSIVE METABOLIC PANE Samuel 01-12-2025 Albumin [Mass/Vol] 3.9 g/dL Normal 3.2-5.3 [facility] Comment on above: Performed By: #### C BCA, 72706-3, 90710-1, CMP, 55211-3, 44789-9 #### [facility] [place] ([id number]) [address] [place] [address] 46497 ALP [Catalytic activity/Vol] 38 U/L Low 39-130 [facility] Comment on above: Performed By: #### C BCA, 75369-5, 99761-3, CMP, 37972-1, 24787-9 #### [facility] [place] ([id number]) [address] [place] [address] 69229 ALT [Catalytic activity/Vol] 18 U/L Normal 0-31 [facility] Comment on above: Performed By: #### C BCA, 29546-2, 13502-8, CMP, 55706-9, 99854-8 #### [facility] ([id number]) [address] [place] [address] 37862 Anion gap [Moles/Vol] 10 mmol/L Normal 5-15 [facility] Comment on above: Performed By: #### C BCA, 42944-9, 21193-2, CMP, 99381-4, 68663-6 #### [facility] ([id number]) [address] [place] [address] 49253 AST [Catalytic activity/Vol] 30 U/L Normal 0-41 [facility] Comment on above: Performed By: #### C BCA, 06498-6, 99211-8, CMP, 04622-7, 43318-0 #### [facility] [place] ([id number]) [address] [place] [address] 79426 Bilirubin [Mass/Vol] 0.5 mg/dL Normal 0.3-1.2 [facility] Comment on above: Performed By: #### C BCA, 71113-0, 23325-1, CMP, 84847-0, 19690-2 #### [facility] [place] ([id number]) [address] [place] [address] 10693 Calcium [Mass/Vol] 9.0 mg/dL Normal 8.5-10.5 [facility] Comment on above: Performed By: #### C BCA, 27918-7, 38760-7, CMP, 91024-2, 16739-3 #### [facility] [place] ([id number]) [address] [place] [address] 08538 Chloride [Moles/Vol] 99 mmol/L Normal 98-109 [facility] Comment on above: Performed By: #### C BCA, 91470-7, 58324-4, CMP, 11600-1, 91270-2 #### [facility] [place] ([id number]) [address] [place] [address] 83374 CO2 [Moles/Vol] 30 mmol/L Normal 22-32 [facility] Comment on above: Performed By: #### C BCA, 30529-8, 97462-8, CMP, 61460-9, 99329-5 #### [facility] [place] ([id number]) [address] [place] [address] 76430 Creatinine [Mass/Vol] 0.97 mg/dL Normal 0.40-1.00 [facility] Comment on above: Result Comment: METH OD TRACEABLE TO IDMS STANDARD Performed By: #### C BCA, 30326-4, 06269-6, CMP, 87572-3, 00101-7 #### [facility] [place] ([id number]) [address] [place] [address] 21854 GFR/1.73 sq M.predicted among non-blacks MDRD (S/P/Bld) [Vol rate/Area] 63 mL/min/{1.73_m2} Normal >59 [facility] Comment on above: Result Comment: Reported eGFR is based on the CKD-EPI 2020 equation that does not use a race coefficient. Performed By: #### C BCA, 59734-8, 32140-3, CMP, 56594-4, 30522-3 #### [facility] [place] ([id number]) [address] [place] [address] 22095 Glucose [Mass/Vol] 133 mg/dL High 65-99 [facility] Comment on above: Performed By: #### C BCA, 32502-9, 70474-4, CMP, 33768-2, 80594-1 #### [facility] [place] ([id number]) [address] [place] [address] 37525 Potassium [Moles/Vol] 4.4 mmol/L Normal 3.5-5.0 [facility] Comment on above: Performed By: #### C BCA, 18236-4, 18532-4, CMP, 91685-0, 13580-2 #### [facility] [place] ([id number]) [address] [place] [address] 06727 Protein [Mass/Vol] 7.2 g/dL Normal 6.0-8.0 [facility] Comment on above: Performed By: #### C BCA, 72067-8, 22085-0, CMP, 00804-7, 28984-5 #### [facility] [place] ([id number]) [address] [place] [address] 25913 Sodium [Moles/Vol] 139 mmol/L Normal 134-146 [facility] Comment on above: Performed By: #### C BCA, 51344-1, 40750-7, CMP, 50874-6, 61672-5 #### [facility] [place] ([id number]) [address] [place] [address] 53188 Urea nitrogen [Mass/Vol] 13 mg/dL Normal 5-27 [facility] Comment on above: Performed By: #### C BCA, 52416-3, 88816-8, CMP, 68495-1, 09603-6 #### [facility] [place] ([id number]) [address] [place] [address] 77616 Fibrin D-dimer DDU (PPP) [Ma ss/Vol]on 01-12-2025 D DIMER <150 Normal <255 [facility] Comment on above: Result Comment: Results <255 ng/mL DDU: The presence of a VTE can safely be excluded with a negative D-Dimer result and Wells score. A negative result doesn't exclude the possibility of DIC. The test be repeated along with other diagnostic tests if the patient's symptoms persist or worsen. [email or web address] Performed By: #### C BCA, 82760-1, 56961-6, CMP, 17901-6, 57801-3 #### [facility] ([id number]) [address] [place] [address] 15772 MAGNESIUMon 01-12-2025 Magnesium [Mass/Vol] 1.6 mg/dL Low 1.8-2.6 [facility] Comment on above: Performed By: #### C BCA, 56468-4, 43573-7, CMP, 83337-9, 22646-1 #### [facility] [place] ([id number]) [address] [place] [address] 57461 Natriuretic peptide B [Mass/ Vol]on 01-12-2025 Natriuretic peptide B (Bld) [Mass/Vol] 32 pg/mL Normal <100.0 [facility] Comment on above: Performed By: #### C BCA, 39562-9, 40647-2, CMP, 96712-0, 54891-0 #### [facility] ([id number]) [address] [place] [address] 07321 PROTIME AND INRon 01-12-2025 INR Coag (PPP) [Relative time] 1.0 {INR} Normal 0.9-1.2 [facility] Comment on above: Performed By: #### C JAMESON, 90216-4, 25056-7, CMP, 96783-6, 22189-7 #### [facility] ([id number]) [address] [place] [address] 27173 PT Coag (PPP) [Time] 11.9 s Normal 9.8-13.2 [facility] Comment on above: Result Comment: NEW REFERENCE RANGE Performed By: #### C JAMESON, 68527-3, 38645-9, CMP, 83329-7, 32308-0 #### [facility] [place] ([id number]) [address] [place] [address] 39719 Troponin I.cardiac High sens itivity method [Mass/Vol]on 01-12-2025 1 HOUR TROP I, HIGH SENSITIVITY 4 ng/L Normal <16 [facility] Comment on above: Performed By: #### C JAMESON, 20599-9, 78445-8, CMP, 68838-8, 20048-9 #### [facility] [place] ([id number]) [address] [place] [address] 57367 TROPONIN I, HIGH SENSITIVITY 4 ng/L Normal <16 [facility] Comment on above: Performed By: #### C BCA, 39830-7, 63072-2, CMP, 14048-6, 03182-1 #### [facility] [place] ([id number]) [address] [place] [address] 63599 aPTT Coag (PPP) [Time]on aPTT Coag (Bld) [Time] 37 s Normal 26-37 [facility] Comment on above: Result Comment: NEW REFERENCE RANGE Performed By: #### C BCA, 52534-1, 61647-6, CMP, 50947-0, 19168-8 #### [facility] [place] ([id number]) [address] [place] [address], [place] [address] Documentationon 01-11-2025 Documentation [id number] Diana Oliver Corrie 1955 F Date Provider Department Center 01/11/2025 ELLIE MALIK [place] [facility] Family History Problem Relation Age of Onset Coronary artery disease Father Atrial fibrillation Sister Family Status - Relation Status Age at Father Sister Reason for Visit and Comments: Anticoagulation [8] [facility] 29on 01-08-2025 29 Addended by: NILAY THOMPSON on: 01/11/2025 02:32 PM Modules accepted: Orders Normal [facility] Documentationon 01-08-2025 Documentation [id number] Diana Oliver Corrie 1955 Provider Department Center 01/08/2025 [id number], KARA [place] [facility] Family History Problem Relation Age of Onset Coronary artery disease Father Atrial fibrillation Sister Family Status - Relation Status Age at Father Sister Reason for Visit and Comments: PharmD Cardiology Consult [Other] [facility] Office Visiton 01-08-2025 Follow-up visit [id number] Diana Oliver Corrie 1955 F Date Provider Department Center 01/08/2025 [id number], ADAM [facility] Family History Problem Relation Age of Onset Coronary artery disease Father Atrial fibrillation Sister Family Status - Relation Status Age at Father Sister Level of Service:27112 CO OFFICE/OUTPATIENT ESTABLISHED LOW MDM 20 MIN Reason for Visit and Comments: 1 year follow up [Other] [facility] Urine Cultureon 12-24-2024 Bacteria identified Cx Nom (U) ORGANISM: Klebsiella pneumoniae (O:KLEPNE) [place] Count >100,000 Aerobic RIKI Charge (NMIC56) ----- SUSCEPTIBILITY ---- ORGANISM: O:KLEPNE ANTIBIOTIC INTERPRETATION RIKI Amikacin S <16 Amoxacillin/K Clavulanate S <8 Ampicillin/Sulbactam S <4 Aztreonam S <4 Cefazolin S <2 Cefepime S <2 Ceftazidime S <1 Ceftazidime/Avibacta m S <4 Ceftolozane/Tazobact am S <2 Ceftriaxone S <1 Cefuroxime S <4 Ciprofloxacin S <0.25 Ertapenem S <0.5 Gentamicin S <2 Levofloxacin S <0.5 Meropenem S <1 Meropenem/Vaborbacta m S <2 Nitrofurantoin S <32 Piperacillin/Tazobac spaulding S <8 Tetracycline S <4 Tigecycline S <2 Tobramycin S <2 Trimethoprim/Sulfame thoxazole S <0.5 S = SUSCEPTIBLE I = INTERMEDIATE R = RESISTANT BLANK = DATA NOT AVAILABLE, OR DRUG NOT ADVISABLE OR TESTED R* = RESISTANCE DUE TO EXTENDED SPECTRUM BETA-LACTAMASES ESBL = EXTENDED SPECTRUM BETA-LACTAMASE TFG = THYMIDINE-DEPENDENT STRAIN YOVANNY = BETA-LACTAMASE POSITIVE IB = INDUCIBLE BETA-LACTAMASE. APPEARS IN PLACE OF 'S' WITH SPECIES KNOWN TO POSSESS INDUCIBLE BETA-LACTAMASES. POTENTIALLY THEY MAY BECOME RESISTANT TO ALL B-LACTAM DRUGS. PERFORMED BY: [place] [address] PATHOLOGIST [employer]ANT H[employer] MANAGER JOS FRY M.D. Normal [facility] Comment on above: Performed By: #### C UU #### [address] Glucose (Bld) [Mass/Vol]Orde red By: Marilyn Powell on 11-11-2024 Glucose Blood, POC 108 mg/dL [facility] - Hematology and Cell countson 11-11-2024 HbA1c (Bld) [Mass fraction] 6.4 % [facility] No Panel InformationOrdered By: Marilyn Powell on 11-11-2024 [facility] C peptide post fast [Mass/Vo l]on 05-05-2024 C-Peptide, S 2.8 ng/mL Normal 1.1 - 4.4 [facility] Comment on above: Result Comment: NOTE Test Performed by: [facility] [address] [id number] Polymerization Oven Tender: Hunter Solis Ph.D.; CLIA# [id number] Performed By: #### C BCA, 90991-6, 39778-3, CMP, 27730-0, 81436-9 #### [facility] ([id number]) [address] [place] [address] 23539 Lipid 1996 panelon 4 Cholesterol [Mass/Vol] 171 mg/dL Normal 150-200 [facility] Comment on above: Performed By: #### 2 4331-1, 25797-3 #### [facility] ([id number]) [address] [place] [address], [address] [place] [address] #### 24864-4 #### [facility] ([id number]) [address] [place] [address] 36765 Cholesterol in HDL [Mass/Vol] 50 mg/dL Normal >39 [facility] Comment on above: Result Comment: HDL <40 mg/dL - High Risk HDL > or = 40mg/dL- Desirable HDL >60 mg/dL - Negative Risk Performed By: #### 2 4331-1, 51403-0 #### [facility] ([id number]) [address] [place] [address], [address] [place] [address] #### 09281-1 #### [facility] ([id number]) [address] [place] [address] 64195 Cholesterol in LDL [Mass/Vol] 105 mg/dL Normal <130 [facility] Comment on above: Result Comment: LDL <100 mg/dL - Desirable LDL >160 mg/dL - High Risk Performed By: #### 2 4331-1, 83916-4 #### [facility] ([id number]) [address] [place] [address], [address] [place] [address] #### 75360-5 #### [facility] ([id number]) [address] [place] [address] 17708 Cholesterol in VLDL [Mass/Vol] 16 mg/dL Normal 0-30 [facility] Comment on above: Performed By: #### 2 4331-1, 99467-5 #### [facility] ([id number]) [address] [place] [address], [facility] [email or web address] [address] [place] [address] #### 94739-2 #### [facility] ([id number]) [address] [place] [address] 74306 CHOLESTEROL:HDL 3.4 Normal 1.0-5.0 [facility] Comment on above: Performed By: #### 2 4331-1, 34151-5 #### [facility] ([id number]) [address] [place] [address], [address] [place] [address] #### 39205-3 #### [facility] [place] ([id number]) [address] [place] [address] 96040 Triglyceride [Mass/Vol] 78 mg/dL Normal 27-150 [facility] Comment on above: Performed By: #### 2 4331-1, 01469-6 #### [facility] ([id number]) [address] [place] [address], [address] [place] [address] #### 57063-6 #### [facility] ([id number]) [address] [place] [address] 09239 MICROALBUMIN - ALBUMIN:CREAT ININE URINE RATIOon 05-05-2024 ALB/CREAT RATIO NOT CALCULATED Normal 0.0-30.0 [facility] Comment on above: Result Comment: Result for Albumin/Creatinine Ratio cannot be reliably calculated because urine albumin and or urine creatinine is below the detection limit of the assay. Performed By: #### C BCA, 74096-3, 41466-2, CMP, 20777-2, 56642-9 #### [facility] ([id number]) [address] [place] [address] 34984 Albumin DL <= 20 mg/L (U) [Mass/Vol] mg/dL Normal 0.0-1.9 [facility] Comment on above: Performed By: #### C BCA, 53523-5, 33282-1, CMP, 82187-3, 04807-3 #### [facility] ([id number]) [address] [place] [address] 03924 URINE CREAT 47.61 mg/dL Normal [facility] Comment on above: Performed By: #### C BCA, 99450-8, 03193-5, CMP, 06998-7, 05095-6 #### [facility] ([id number]) [address] [place] [address] 78856 RENAL PANELon 05-05-2024 Albumin [Mass/Vol] 4.3 g/dL Normal 3.2-5.3 [facility] Comment on above: Performed By: #### C BCA, 07284-1, 06237-6, CMP, 00975-1, 74968-5 #### [facility] ([id number]) [address] [place] [address] 07413 Anion gap [Moles/Vol] 9 mmol/L Normal 5-15 [facility] Comment on above: Performed By: #### C BCA, 53953-8, 94460-3, CMP, 86521-7, 60431-7 #### [facility] ([id number]) [address] [place] [address] 64375 Calcium [Mass/Vol] 9.3 mg/dL Normal 8.5-10.5 [facility] Comment on above: Performed By: #### C BCA, 46542-8, 07067-1, CMP, 68540-6, 40729-1 #### [facility] ([id number]) [address] [place] [address] 30342 Chloride [Moles/Vol] 99 mmol/L Normal 98-109 [facility] Comment on above: Performed By: #### C BCA, 25497-6, 97909-8, CMP, 07784-4, 09845-8 #### [facility] ([id number]) [address] [place] [address] 05925 CO2 [Moles/Vol] 30 mmol/L Normal 22-32 [facility] Comment on above: Performed By: #### C BCA, 48414-7, 18852-3, CMP, 85443-2, 64719-8 #### [facility] ([id number]) [address] [place] [address] 29882 Creatinine [Mass/Vol] 0.73 mg/dL Normal 0.40-1.00 [facility] Comment on above: Result Comment: METH OD TRACEABLE TO IDMS STANDARD Performed By: #### C BCA, 36318-2, 21000-0, CMP, 16342-2, 23528-0 #### [facility] ([id number]) [address] [place] [address] 34236 GFR/1.73 sq M.predicted among non-blacks MDRD (S/P/Bld) [Vol rate/Area] 89 mL/min/{1.73_m2} Normal >59 [facility] Comment on above: Result Comment: Reported eGFR is based on the CKD-EPI 2020 equation that does not use a race coefficient. Performed By: #### C BCA, 30107-0, 35141-7, CMP, 03654-1, 23854-9 #### [facility] ([id number]) [address] [place] [address], [place] [address] Glucose [Mass/Vol] 107 mg/dL High 65-99 [facility] Comment on above: Performed By: #### C BCA, 16553-8, 68656-0, CMP, 72835-7, 16598-1 #### [facility] ([id number]) [address] [place] [address], [place] [address] Phosphate [Mass/Vol] 3.1 mg/dL Normal 2.4-4.9 [facility] Comment on above: Performed By: #### C BCA, 16301-1, 52226-1, CMP, 56399-2, 52661-6 #### [facility] ([id number]) [address] [place] [address] 89779 Potassium [Moles/Vol] 4.4 mmol/L Normal 3.5-5.0 [facility] Comment on above: Performed By: #### C BCA, 87545-6, 76839-0, CMP, 22898-4, 88364-4 #### [facility] ([id number]) [address] [place] [address], [place] [address] Sodium [Moles/Vol] 138 mmol/L Normal 134-146 [facility] Comment on above: Performed By: #### C BCA, 99316-8, 20324-2, CMP, 60106-9, 24701-7 #### [facility] ([id number]) [address] [place] [address], [place] [address] Urea nitrogen [Mass/Vol] 12 mg/dL Normal 5-27 [facility] Comment on above: Performed By: #### C BCA, 14922-2, 65546-6, CMP, 22498-5, 59324-7 #### [facility] ([id number]) [address] [place] [address], [place] [address] Vitamin D+Metabolites [Mass/ Vol]on 05-05-2024 VITAMIN D 25 HYD TOT 37.6 ng/mL Normal 30-100 [facility] Comment on above: Result Comment: Vitamin D status 25 [place] Vitamin D Deficiency <20 ng/mL Insufficiency 20-29 ng/mL Sufficiency 30-100 ng/mL Toxicity >100 ng/mL NOTE: A pediatric reference range has not been established by the rd mechanical engineer of this kit. The [place] [employer] recommends a Vitamin D level of = or >20ng/mL in infants and children. Performed By: #### 2 4331-1, 41807-5 #### [facility] ([id number]) [address], [address] [place] [address] #### 65639-2 #### [facility] ([id number]) [address] [place] [address] 90776 CBC AND AUTO DIFFon 02-07-20 24 ABSOLUTE BASOPHIL 0.0 X10E9/L Normal 0.0-0.2 [facility] Comment on above: Performed By: #### C BCA, 86785-4, 40492-0, CMP, 84878-3, 46906-3 #### [facility] ([id number]) [address] [place] [address] 04373 ABSOLUTE NEUTROPHIL 12.3 X10E9/L High 1.5-6.6 [facility] Comment on above: Performed By: #### C BCA, 17681-1, 01535-4, CMP, 27462-4, 75384-3 #### [facility] ([id number]) [address] [place] [address] 85623 Basophils/100 WBC (Bld) 0.2 % Normal [facility] Comment on above: Performed By: #### C BCA, 76528-0, 93687-5, CMP, 58477-3, 69545-7 #### [facility] ([id number]) [address] [place] [address] 74873 Eosinophils (Bld) [#/Vol] 0.1 10*3/uL Normal 0.0-0.4 [facility] Comment on above: Performed By: #### Haroon BCA, 52008-6, 40940-8, CMP, 18070-4, 26666-5 #### [facility] ([id number]) [address] [place] [address] 83197 Eosinophils/100 WBC (Bld) 0.5 % Normal [facility] Comment on above: Performed By: #### Haroon BARBA, 04678-9, 36747-8, CMP, 27959-1, 62320-6 #### [facility] ([id number]) [address] [place] [address] 00459 Erythrocyte distribution width (RBC) [Ratio] 15.4 % High 11.5-15.0 [facility] Comment on above: Performed By: #### Haroon BARBA, 14470-9, 08672-9, CMP, 30431-2, 18367-8 #### [facility] ([id number]) [address] [place] [address] 30669 Hematocrit (Bld) [Volume fraction] 42.8 % Normal 35-47 [facility] Comment on above: Performed By: #### Haroon BCA, 56617-0, 00173-8, CMP, 59501-6, 95260-0 #### [facility] ([id number]) [address] [place] [address] 43644 Hemoglobin (Bld) [Mass/Vol] 14.0 g/dL Normal 11.7-15.5 [facility] Comment on above: Performed By: #### Haroon BARBA, 96561-0, 47312-6, CMP, 17170-6, 92993-4 #### [facility] ([id number]) [address] [place] [address] 45133 Lymphocytes (Bld) [#/Vol] 1.4 10*3/uL Normal 1.0-3.5 [facility] Comment on above: Performed By: #### C BCA, 45636-0, 31705-8, CMP, 00373-4, 70007-5 #### [facility] ([id number]) [address] [place] [address] 99589 Lymphocytes/100 WBC (Bld) 9.9 % Normal [facility] Comment on above: Performed By: #### C BCA, 64517-5, 91847-1, CMP, 69360-8, 28282-5 #### [facility] ([id number]) [address] [place] [address] 58004 MCH (RBC) [Entitic mass] 28.6 pg Normal 27-34 [facility] Comment on above: Performed By: #### C BCA, 04955-2, 76210-2, CMP, 19932-8, 88352-8 #### [facility] ([id number]) [address] [place] [address] 77759 MCHC (RBC) [Mass/Vol] 32.6 g/dL Normal 32-36 [facility] Comment on above: Performed By: #### Haroon BCA, 24651-6, 30673-2, CMP, 89141-9, 27178-2 #### [facility] ([id number]) [address] [place] [address] 58827 MCV (RBC) [Entitic vol] 88 fL Normal 80-100 [facility] Comment on above: Performed By: #### C BCA, 78426-7, 87007-8, CMP, 76297-9, 07629-3 #### [facility] ([id number]) [address] [place] [address] 82769 Monocytes (Bld) [#/Vol] 0.5 10*3/uL Normal 0-0.9 [facility] Comment on above: Performed By: #### C BCA, 31226-9, 40367-5, CMP, 69679-2, 83444-7 #### [facility] ([id number]) [address] [place] [address] 24119 Monocytes/100 WBC (Bld) 3.6 % Normal [facility] Comment on above: Performed By: #### C BCA, 10111-7, 09325-8, CMP, 33739-0, 68443-1 #### [facility] ([id number]) [address] [place] [address] 80327 Neutrophils/100 WBC (Bld) 85.8 % Normal [facility] Comment on above: Performed By: #### Haroon BCA, 52160-5, 01590-7, CMP, 91943-2, 52412-4 #### [facility] ([id number]) [address] [place] [address] 41801 Platelet mean volume (Bld) [Entitic vol] 9.2 fL Normal 7-12 [facility] Comment on above: Performed By: #### Haroon BCA, 10790-9, 92532-9, CMP, 03758-3, 22921-2 #### [facility] ([id number]) [address] [place] [address] 81381 Platelets (Bld) [#/Vol] 279 10*3/uL Normal 150-450 [facility] Comment on above: Performed By: #### Haroon BCA, 08995-3, 46699-8, CMP, 07527-9, 38586-9 #### [facility] ([id number]) [address] [place] [address] [place] [address] RBC COUNT 4.88 X10E12/L Normal 3.80-5.20 [facility] Comment on above: Performed By: #### C BCA, 95223-6, 77586-1, CMP, 29082-1, 20944-6 #### [facility] ([id number]) [address] [place] [address] 63917 WBC (Bld) [#/Vol] 14.3 10*3/uL High 4.0-11.0 [facility] Comment on above: Performed By: #### C BCA, 33250-1, 06486-6, CMP, 27797-1, 91189-2 #### [facility] ([id number]) [address] [place] [address] 98682 COMPREHENSIVE METABOLIC PANE Samuel 02-07-2024 Albumin [Mass/Vol] 4.5 g/dL Normal 3.2-5.3 [facility] Comment on above: Performed By: #### C BCA, 17868-6, 94457-7, CMP, 32531-0, 04847-3 #### [facility] ([id number]) [address] [place] [address] 10341 ALP [Catalytic activity/Vol] 51 U/L Normal 39-130 [facility] Comment on above: Performed By: #### C BCA, 45590-2, 71565-6, CMP, 13565-1, 21802-4 #### [facility] ([id number]) [address] [place] [address] 49483 ALT [Catalytic activity/Vol] 17 U/L Normal 0-31 [facility] Comment on above: Performed By: #### C BCA, 90220-4, 71773-4, CMP, 64051-7, 52269-7 #### [facility] ([id number]) [address] [place] [address] 48699 Anion gap [Moles/Vol] 9 mmol/L Normal 5-15 [facility] Comment on above: Performed By: #### C BCA, 17375-2, 17397-9, CMP, 84372-3, 77329-8 #### [facility] ([id number]) [address] [place] [address] 19322 AST [Catalytic activity/Vol] 23 U/L Normal 0-41 [facility] Comment on above: Performed By: #### C BCA, 45183-3, 62196-1, CMP, 95213-6, 61207-7 #### [facility] ([id number]) [address] [place] [address] 12571 Bilirubin [Mass/Vol] 0.6 mg/dL Normal 0.3-1.2 [facility] Comment on above: Performed By: #### C BCA, 09109-0, 41250-8, CMP, 50265-9, 62735-4 #### [facility] ([id number]) [address] [place] [address] 53308 Calcium [Mass/Vol] 9.6 mg/dL Normal 8.5-10.5 [facility] Comment on above: Performed By: #### C BCA, 63912-7, 63024-6, CMP, 77608-5, 52576-4 #### [facility] ([id number]) [address] [place] [address] 95189 Chloride [Moles/Vol] 103 mmol/L Normal 98-109 [facility] Comment on above: Performed By: #### C BCA, 11929-2, 81286-8, CMP, 73588-9, 94970-8 #### [facility] ([id number]) [address] [place] [address] 85402 CO2 [Moles/Vol] 27 mmol/L Normal 22-32 [facility] Comment on above: Performed By: #### C BCA, 78714-6, 78338-5, CMP, 16850-9, 59052-9 #### [facility] ([id number]) [address] [place] [address] 49457 Creatinine [Mass/Vol] 0.86 mg/dL Normal 0.40-1.00 [facility] Comment on above: Result Comment: METH OD TRACEABLE TO IDMS STANDARD Performed By: #### C BCA, 91516-1, 42090-8, CMP, 52677-4, 83765-8 #### [facility] ([id number]) [address] [place] [address] 05596 GFR/1.73 sq M.predicted among non-blacks MDRD (S/P/Bld) [Vol rate/Area] 74 mL/min/{1.73_m2} Normal >59 [facility] Comment on above: Result Comment: Reported eGFR is based on the CKD-EPI 2020 equation that does not use a race coefficient. Performed By: #### C BCA, 84123-7, 56032-5, CMP, 29107-3, 85815-4 #### [facility] ([id number]) [address] [place] [address] 99045 Glucose [Mass/Vol] 152 mg/dL High 65-99 [facility] Comment on above: Performed By: #### C BCA, 02876-4, 82997-5, CMP, 50299-1, 80055-0 #### [facility] ([id number]) [address] [place] [address] 53901 Potassium [Moles/Vol] 4.3 mmol/L Normal 3.5-5.0 [facility] Comment on above: Performed By: #### C BCA, 53529-3, 63273-5, CMP, 55991-3, 05347-1 #### [facility] ([id number]) [address] [place] [address] 55487 Protein [Mass/Vol] 8.3 g/dL High 6.0-8.0 [facility] Comment on above: Performed By: #### C BCA, 68071-7, 51807-0, CMP, 60292-4, 97761-7 #### [facility] ([id number]) [address] [place] [address] 63338 Sodium [Moles/Vol] 139 mmol/L Normal 134-146 [facility] Comment on above: Performed By: #### C BCA, 16478-1, 94239-8, CMP, 20586-6, 66859-1 #### [facility] ([id number]) [address] [place] [address] 42864 Urea nitrogen [Mass/Vol] 12 mg/dL Normal 5-27 [facility] Comment on above: Performed By: #### C BCA, 60735-6, 88244-6, CMP, 07303-4, 66781-9 #### [facility] ([id number]) [address] [place] [address] 21268 Fibrin D-dimer DDU (PPP) [Ma ss/Vol]on 02-07-2024 D DIMER 815 ng/mL DDU High <255 [facility] Comment on above: Result Comment: Results >=255ng/mL DDU: Results may be indicative of the presence of VTE. The use of the Wells score and further diagnostic tests should be considered. Elevated D-Dimer levels can also be associated with DIC, neoplasm, , trauma and liver disease. Elevated levels of rheumatoid factor may lead to an overestimation of the D-Dimer level. Performed By: #### C BCA, 28521-8, 75891-3, CMP, 46012-9, 15297-4 #### [facility] ([id number]) [address] [place] [address] 72683 MAGNESIUMon 02-07-2024 Magnesium [Mass/Vol] 1.8 mg/dL Normal 1.8-2.6 [facility] Comment on above: Performed By: #### C BCA, 81114-0, 95425-5, CMP, 22295-1, 55166-1 #### [facility] ([id number]) [address] [place] [address] Natriuretic peptide B [Mass/ Vol]on 02-07-2024 Natriuretic peptide B (Bld) [Mass/Vol] 58 pg/mL Normal <100.0 [facility] Comment on above: Performed By: #### C BCA, 17492-9, 15516-7, CMP, 44782-6, 54782-5 #### [facility] ([id number]) [address] [place] [address] 27128 Troponin I.cardiac High sens itivity method [Mass/Vol]on 02-07-2024 1 HOUR TROP I, HIGH SENSITIVITY 6 ng/L Normal <16 [facility] Comment on above: Performed By: #### 8 9579-7 #### [facility] ([id number]) [address] [place] [address] 35408 TROPONIN I, HIGH SENSITIVITY 6 ng/L Normal <16 [facility] Comment on above: Performed By: #### C BCA, 84043-6, 27495-6, CMP, 44220-5, 12480-6 #### [facility] ([id number]) [address] [place] [address] 82074 XR CHEST 1 VWon 02-07-2024 XR CHEST 1 VW XR CHEST 1 VW Clinical history: Dizziness and shortness of breath. Comparisons: 03/18/2023 through 12/11/2023. Findings: AP portable upright chest radiograph obtained at 4:33 PM. Image was obtained with lordotic positioning. There is hypoventilation with low lung volumes and crowding of bronchovascular markings in the bases. No focal pulmonary parenchymal consolidation. Accounting for the above-mentioned factors heart size and pulmonary vasculature appear within normal limits. No pleural effusion nor pneumothorax. IMPRESSION: 1. Hypoventilation with low lung volumes, otherwise no evidence for acute cardiopulmonary disease. Finalized by Carlito Bell MD on 02/07/2024 4:39 PM Normal [facility] Covid-19 PCR (CVDTB)on 07-29 SARS-CoV-2 (COVID-19) RNA SANTIAGO+probe Ql (Unsp spec) Not detected Normal NOT DETECTED [facility] Comment on above: Result Comment: This test is not yet approved or cleared by the [place] FDA. When there are no FDA-approved or cleared tests available, and other criteria are met, FDA can make tests available under an emergency access mechanism called an Emergency Use Authorization (EUA). The EUA for this test is supported by the [place] of Health and Human Service's (HHS's) declaration [...] SARS-CoV-2. Performed By: #### C [facility] #### [facility] [address] [place] [address] Dr. Tierra Ramey US KIDNEYS BLADDERon 022 US KIDNEYS BLADDER [...] by: RAMY MIXON Date: 2022-07-05 11:24 Normal [facility] ECHOCARDIO M/2D COMPLETEon 0 06-22-2022 ECHOCARDIO M/2D COMPLETE Patient: DIANA OLIVER Exam Date: 06/22/2022 : 1955 Gender:F Ordering : RILEY [facility] Admission #: [id number] Family : Order #: [id number] CLICK HERE TO VIEW EXAM ECHOCARDIOGRAM REPORT [...] Sanchez M.D. on 06/22/2022 at 14:57 Normal [facility] Creatinine and Glomerular fi ltration rate.predicted panel (S/P/Bld)Ordered By: Rafat Vences on 01-20-2022 Creatinine [Mass/Vol] 0.75 mg/dL 0.44-1.03 [facility] Estimated glomerular filtrat ion rate (GFR) non- AmericanOrdered By: Rafat Vences on 01-20-2022 GFR/1.73 sq M.predicted among non-blacks MDRD (S/P/Bld) [Vol rate/Area] > 60 mL/Min [facility] No Panel InformationOrdered By: Rafat Vences on 01-20-2022 Estimated GFR () > 60 mL/Min [facility] Comment on above: GFR estimated refere nce range: According to KDOQI guidelines, <60 ml/min/1.73m2 is sufficient to diagnose a patient with chronic kidney disease. Pharmacy Creatinine Clearance (Chem 104.99 [facility] Serum or plasma calcium john urement (mass/volume)Ordered By: Rafat Vences on 01-20-2022 Calcium [Mass/Vol] 8.9 mg/dL 8.2-10.2 [facility] Serum or plasma chloride sushma surement (moles/volume)Ordered By: Rafat Vences on 01-20-2022 Chloride [Moles/Vol] 90 mmol/L 95-114 [facility] Serum or plasma glucose john urement (mass/volume)Ordered By: Rafat Vences on 01-20-2022 Glucose [Mass/Vol] 145 mg/dL 70-100 [facility] Comment on above: ADA recommended refe rence rangeRandom Glucose Reference Range is dependent on time and content of last meal. Glucose of more than 200 mg/dL in a nonstressed, ambulatory subject supports the diagnosis of Diabetes Mellitus. Serum or plasma potassium me asurement (moles/volume)Ordered By: Rafat Vences on 01-20-2022 Potassium [Moles/Vol] 4.3 mmol/L 3.5-5.1 [facility] Serum or plasma sodium measu rement (moles/volume)Ordered By: Rafat Vences on 01-20-2022 Sodium [Moles/Vol] 135 mmol/L 136-146 [facility] Serum or plasma total carbon dioxide measurement (moles/volume)Ordered By: Rafat Vences on 01-20-2022 CO2 [Moles/Vol] 31.2 mmol/L 22.0-30.0 [facility] Serum or plasma urea nitroge n measurement (mass/volume)Ordered By: Rafat Vences on 01-20-2022 Urea nitrogen [Mass/Vol] 18 mg/dL 9-23 [facility] Albumin [Mass/volume] in Ser um or PlasmaOrdered By: Zane Zuniga on 01-19-2022 Albumin [Mass/Vol] 3.4 g/dL 3.2-5.5 [facility] Globulin Calc (S) [Mass/Vol] Ordered By: Zane Zuniga on 01-19-2022 Globulin (S) [Mass/Vol] 3.5 g/dL F [facility] - Chemistry and C hemistry - challengeOrdered By: Zane Zuniga on 01-19-2022 Magnesium [Mass/Vol] 2.0 mg/dL 1.6-2.6 [facility] Protein [Mass/volume] in Ser um or PlasmaOrdered By: Zane Zuniga on 01-19-2022 Protein [Mass/Vol] 6.9 g/dL 6.1-7.9 [facility] Serum or plasma alanine benitez otransferase measurement without P-5'-P (enzymatic activiOrdered By: Zane Zuniga on 01-19-2022 ALT No additional P-5'-P [Catalytic activity/Vol] 19 U/L 10-60 [facility] Serum or plasma albumin/glob ulin mass ratioOrdered By: Zane Zuniga on 01-19-2022 Albumin/Globulin [Mass ratio] 1.0 {ratio} [facility] Serum or plasma alkaline saeid sphatase measurement (enzymatic activity/volume)Ordered By: Zane Zuniga on 01-19-2022 ALP [Catalytic activity/Vol] 45 U/L 32-92 [facility] Serum or plasma aspartate am inotransferase measurement (enzymatic activity/volume)Ordered By: Zane Zuniga on 01-19-2022 AST [Catalytic activity/Vol] 21 U/L 10-42 [facility] Serum or plasma total biliru bin measurement (mass/volume)Ordered By: Zane Zuniga on 01-19-2022 Bilirubin [Mass/Vol] 0.6 mg/dL 0.3-1.2 [facility] Troponin I.cardiac [Mass/vol ume] in Serum or Plasma by High sensitivity methodOrdered By: Zane Zuniga on 01-19-2022 Troponin I.cardiac High sensitivity method [Mass/Vol] 4 pg/mL 0-15 [facility] Vital Signs Date Time Vital Sign Value Performing Clinician Facility 06-08-2025 08:48-0400 Body temperature 96.2 [degF] Nikky Hong APRN Work Phone: [facility] 06-08-2025 08:48-0400 Diastolic blood pressure 74 mm[Hg] Nikky Hong APRN Work Phone: [facility] 06-08-2025 08:48-0400 Heart rate 63 /min Nikky Hong APRN Work Phone: [facility] 06-08-2025 08:48-0400 SaO2% (BldA) [Mass fraction] 95 % Nikky Hong APRN Work Phone: [facility] 06-08-2025 08:48-0400 Systolic blood pressure 138 mm[Hg] Nikky Hong APRN Work Phone: [facility] 05-12-2025 09:34-0400 Body height 157.5 cm Errol Caceres MD Work Phone: [facility] 05-12-2025 09:34-0400 Heart rate 65 /min Errol Caceres MD Work Phone: [facility] 05-12-2025 09:34-0400 Respiratory rate 16 /min Errol Caceres MD Work Phone: [facility] 05-12-2025 09:34-0400 SaO2% (BldA) [Mass fraction] 90 % Errol Caceres MD Work Phone: [facility] 04-01-2025 10:34-0400 Diastolic blood pressure 75 mm[Hg] Nikkymir Hong APRN Work Phone: [facility] 04-01-2025 10:34-0400 Heart rate 59 /min Nikky Hal HOUSERN Work Phone: [facility] 04-01-2025 10:34-0400 Respiratory rate 16 /min Nikkymir Hong APRN Work Phone: [facility] 04-01-2025 10:34-0400 SaO2% (BldA) [Mass fraction] 94 % Nikkymir Hong APRN Work Phone: [facility] 04-01-2025 10:34-0400 Systolic blood pressure 144 mm[Hg] Nikkymir Hong APRN Work Phone: [facility] 04-01-2025 10:22-0400 Inhaled oxygen flow rate 1 L/min Nikkymir Hong APRN Work Phone: [facility] 04-01-2025 09:35-0400 Body temperature 98.1 [degF] Nikky Hal HYATT Work Phone: [facility] 04-01-2025 06:42-0400 Body height 157.48 cm Nikky Hong APRN Work Phone: [facility] 04-01-2025 06:42-0400 Body weight 110.22 kg Nikky Hong APRN Work Phone: [facility] 03-16-2025 08:50-0400 Body height 157.48 cm Nikky Hong APRN Work Phone: [facility] 03-16-2025 08:50-0400 Body mass index (BMI) [Ratio] 62.7 kg/m2 Nikky Hong APRN Work Phone: [facility] 03-16-2025 08:50-0400 Body temperature 97.4 [degF] Nikky Hong APRN Work Phone: [facility] 03-16-2025 08:50-0400 Body weight 155.58 kg Nikky Hong APRN Work Phone: [facility] 03-16-2025 08:50-0400 Diastolic blood pressure 78 mm[Hg] Nikky Arvizualine [employer]IST Work Phone: [facility] 03-16-2025 08:50-0400 Heart rate 61 /min Nikky Hong APRN Work Phone: [facility] 03-16-2025 08:50-0400 SaO2% (BldA) [Mass fraction] 96 % Nikky Hong APRN Work Phone: [facility] 03-16-2025 08:50-0400 Systolic blood pressure 136 mm[Hg] Nikky Hong APRN Work Phone: [facility] 12-24-2024 08:52-0500 Body height 157.48 cm [facility] 12-24-2024 08:52-0500 Body mass index (BMI) [Ratio] 62.7 kg/m2 [facility] 12-24-2024 08:52-0500 Body temperature 97.7 [degF] [facility] 12-24-2024 08:52-0500 Body weight 155.58 kg [facility] 12-24-2024 08:52-0500 Diastolic blood pressure 80 mm[Hg] [facility] 12-24-2024 08:52-0500 Heart rate 92 /min [facility] 12-24-2024 08:52-0500 SaO2% (BldA) [Mass fraction] 94 % [facility] 12-24-2024 08:52-0500 Systolic blood pressure 132 mm[Hg] [facility] 11-11-2024 09:42-0500 Body height 157.5 cm Errol Caceres MD Work Phone: [facility] 11-11-2024 09:42-0500 Body mass index (BMI) [Ratio] 62.19 kg/m2 Errol Caceres MD Work Phone: [facility] 11-11-2024 09:42-0500 Body weight 154.22 kg Errol Caceres MD Work Phone: [facility] 11-11-2024 09:42-0500 Diastolic blood pressure 60 mm[Hg] Errol Caceres MD Work Phone: [facility] 11-11-2024 09:42-0500 Heart rate 63 /min Errol Caceres MD Work Phone: [facility] 11-11-2024 09:42-0500 Respiratory rate 16 /min Errol Caceres MD Work Phone: [facility] 11-11-2024 09:42-0500 Systolic blood pressure 110 mm[Hg] Errol Caceres MD Work Phone: [facility] 06-26-2022 09:01-0400 Blood Pressure Location [facility] 06-26-2022 09:01-0400 Diastolic blood pressure 77 mm[Hg] [facility] 06-26-2022 09:01-0400 Heart rate 84 /min [facility] 06-26-2022 09:01-0400 Systolic blood pressure 118 mm[Hg] [facility] 01-20-2022 14:08-0400 Inhaled oxygen flow rate 2 L/min [facility] 01-20-2022 12:15-0400 Heart rate 68 /min [facility] 01-20-2022 12:15-0400 Respiratory rate 18 /min [facility] 01-20-2022 11:39-0400 Body temperature 97.8 [degF] [facility] 01-20-2022 11:39-0400 Diastolic blood pressure 57 mm[Hg] [facility] 01-20-2022 11:39-0400 SaO2% (BldA) [Mass fraction] 98 % [facility] 01-20-2022 11:39-0400 Systolic blood pressure 97 mm[Hg] [facility] 01-20-2022 06:00-0400 Body weight 165.2 kg [facility] 01-19-2022 14:17-0400 Body height 157.48 cm [facility] 01-19-2022 03:13-0400 Body mass index (BMI) [Ratio] 68.1 kg/m2 [facility] Encounters Encounter Date Encounter Type Care Provider Facility Start: 06-08-2025 End: 06-08-2025 ambulatory Nikky Hong APRN Work Phone: [facility] Work Phone: Start: 06-08-2025 End: 06-08-2025 Patient encounter procedure Nikky Hong APRN [facility] Work Phone: Start: 05-12-2025 End: 05-12-2025 Bamboo flowsheet Errol Caceres MD Work Phone: [facility] Start: 05-12-2025 End: 05-12-2025 Bamboo flowsheet Errol Caceres MD Work Phone: [facility] Start: 05-12-2025 End: 05-12-2025 Office outpatient visit 25 minutes Errol Caceres MD Work Phone: [facility] Comment on above: Type 2 diabetes rafia itus with hyperglycemia, without long-term current use of insulin (HCC) (Primary Dx); Vitamin D deficiency; Primary hypertension ; Encounter for dietary consultation; Class 3 severe obesity due to excess calories with serious comorbidity and body mass index (BMI) of 60.0 to 69.9 in adult ([facility]) Start: 05-12-2025 End: 05-12-2025 ambulatory ERROL CACERES Not Available Start: 04-01-2025 End: 04-01-2025 Admission to same day surgery center Nikky Hong APRN Work Phone: [facility] [place] Start: 04-01-2025 End: 04-01-2025 ambulatory Nikky Hong APRN Work Phone: [facility] Work Phone: Start: 03-25-2025 End: 03-25-2025 Departed Referred Nikky Hong APRN Work Phone: [facility] Work Phone: Start: 03-25-2025 End: 03-25-2025 Patient encounter procedure Nikky Hong APRN Work Phone: [facility] Work Phone: Start: 03-25-2025 End: 03-25-2025 ambulatory Nikky Hong APRN Work Phone: [facility] Work Phone: Start: 03-16-2025 End: 03-16-2025 Patient encounter procedure Nikky Hong APRN [facility] Phone[facility] Work Phone: Start: 01-12-2025 End: 01-12-2025 Emergency department patient visit NO PCP NO PCP [facility] Start: 01-08-2025 End: 01-08-2025 ambulatory JOHN HARRISON [facility] Start: 12-29-2024 End: 12-29-2024 ambulatory MAGGI PATEL Facility:[facility] Start: 12-24-2024 End: 12-24-2024 ambulatory Nikky Hong [facility] Work Phone: Start: 12-24-2024 End: 12-24-2024 Departed Referred Nikky Hal [employer] Work Phone: [facility] [place] Work Phone: Start: 12-24-2024 End: 12-24-2024 ambulatory [facility] Work Phone: Start: 12-24-2024 End: 12-24-2024 Patient encounter procedure [facility] Work Phone: Start: 12-17-2024 ambulatory MAGGI PATEL Facilit y:[facility] RIM[facility] Ibarra Start: 11-11-2024 End: 11-11-2024 Bamboo flowsheet Errol Caceres MD Work Phone: [facility] Start: 11-11-2024 End: 11-11-2024 Bammarielo flowsheet Errol Caceres MD Work Phone: [facility] Start: 11-11-2024 End: 11-11-2024 Office outpatient visit 25 minutes Errol Caceres MD Work Phone: [facility] Comment on above: Type 2 diabetes rafia itus with hyperglycemia, without long-term current use of insulin ([facility]) (Primary Dx); Vitamin D deficiency; Primary hypertension ([facility]); Encounter for dietary consultation; Class 3 severe obesity due to excess calories with serious comorbidity and body mass index (BMI) of 60.0 to 69.9 in adult (CMS/HCC) Start: 11-11-2024 End: 11-11-2024 ambulatory ERROL CACERES Not Available Start: 05-05-2024 End: 05-05-2024 ambulatory ERROL CACERES [facility] Start: 02-07-2024 End: 02-08-2024 Emergency department patient visit [facility] Start: 02-07-2024 End: 02-07-2024 Emergency department patient visit [facility] Start: 02-07-2024 End: 02-08-2024 Emergency department patient visit [facility] Start: 08-26-2022 Encounter for preprocedural laboratory examination DEEPA AUGUSTIN [facility] Start: 08-23-2022 End: 08-24-2022 ambulatory DEEPA AUGUSTIN Facility:H1 Start: 08-23-2022 End: 08-24-2022 Encounter for preprocedural laboratory examination DEEPA AUGUSTIN Facility:H1 Start: 07-05-2022 End: 07-06-[address] RAMY MIXON Facility:H1 Start: 06-26-2022 End: 06-26-2022 Patient encounter procedure Lis Chase [facility] Start: 06-22-2022 End: 06-23-2022 ambulatory RILEY MAYO Facility:H1 Start: 06-06-2022 End: 06-06-2022 Patient encounter procedure Lis Chase [facility] Start: 01-18-2022 End: 01-20-2022 Evaluation and management of inpatient [facility] [place] [facility] Procedures Date Procedure Procedure Detail Performing Clinician Start: 05-12-2025 Gluc bld gluc mntr dev cleared fda spec home use Errol Caceres MD Work Phone: Start: 04-01-2025 OR Cataract PHACO W/IOL/Vitrectomy (Left) Nikky Hong APRN Work Phone: Start: 04-01-2025 Phacoemulsification of cataract with intraocular lens implantation Nikky Hong APRN Work Phone: Start: 11-11-2024 Gluc bld gluc mntr dev cleared fda spec home use Errol Caceres MD Work Phone: Start: 06-26-2022 Cystoscopy Lis Chase Start: 01-19-2022 Plain chest X-ray Plan of Treatment Date Care Activity Detail Author Start: 11-10-2025 End: 11-10-2025 Patient encounter procedure 11/10/2025 9:30 AM EST Office Visit [facility] END[facility] [address] [place] [phone] Errol Caceres MD [address], [address] [place] [address] [facility] Start: 06-08-2025 Patient referral [facility] Work Phone: Start: 05-12-2025 End: 05-12-2025 Patient encounter procedure [facility] Comment on above: Type 2 diabetes rafia itus with hyperglycemia, without long-term current use of insulin ([facility]) Start: 04-01-2025 End: 04-01-2025 [facility] Start: 12-24-2024 Bacteria identified in Urine by Culture Urine Culture [facility] Start: 12-24-2024 Urine culture [facility] Start: 11-11-2024 End: 11-11-2025 25-hydroxyvitamin D3 [Mass/volume] in Serum or Plasma Vitamin D 25 hydroxy Total Lab Routine Type 2 diabetes mellitus with hyperglycemia, without long-term current use of insulin ([facility]) Expected: 11/11/2024 (Approximate), Expires: 11/11/2025 [facility] Work Phone: Comment on above: Expected: 11/11/2024 (Approximate), Expires: 11/11/2025 Start: 11-11-2024 End: 11-11-2025 Lipid 1996 panel - Serum or Plasma Lipid panel Lab Routine Type 2 diabetes mellitus with hyperglycemia, without long-term current use of insulin ([facility]) Expected: 11/11/2024 (Approximate), Expires: 11/11/2025 [facility] Comment on above: Expected: 11/11/2024 (Approximate), Expires: 11/11/2025 Start: 11-11-2024 End: 11-11-2025 Microalbumin/Creatinine panel in random Urine Microalbumin / creatinine urine ratio Lab Routine Type 2 diabetes mellitus with hyperglycemia, without long-term current use of insulin ([facility]) Expected: 11/11/2024 (Approximate), Expires: 11/11/2025 [facility] Comment on above: Expected: 11/11/2024 (Approximate), Expires: 11/11/2025 Start: 11-11-2024 End: 11-11-2025 Renal function panel Renal function panel Lab Routine Type 2 diabetes mellitus with hyperglycemia, without long-term current use of insulin ([facility]) Expected: 11/11/2024 (Approximate), Expires: 11/11/2025 [facility] Comment on above: Expected: 11/11/2024 (Approximate), Expires: 11/11/2025 Start: 11-11-2024 End: 11-11-2024 Patient encounter procedure 11/11/2024 9:30 AM EST Office Visit [facility] END[facility]CR[facility] [address] [place] [phone] Errol Caceres MD [address] [place] [address] Type 2 diabetes mellitus with hyperglycemia, without long-term current use of insulin ([facility]) [facility] Comment on above: Type 2 diabetes rafia itus with hyperglycemia, without long-term current use of insulin ([facility]) Comprehensive metabo lic 2000 panel - Serum or Plasma [facility] Patient Education Know your Meds [facility] Work Phone: Patient referral [facility] Work Phone: [facility] Immunizations Immunization Date Immunization Notes Care Provider Fa cility 07-30-2024 influenza, high dose seasonal, preservative-free Nikky Hong [employer] Work Phone: [facility] 12-12-2023 pneumococcal polysaccharide vaccine, 23 valent Errol Caceres MD Work Phone: [facility] 08-06-2023 Fluzone QIV High-Dos e 65YR+ Nikky Yangotiscammy OLENA Work Phone: [facility] 08-06-2023 Influenza, injectabl e, Madin Hurst Canine Kidney, preservative free, quadrivalent Errol Caceres MD Work Phone: [facility] 09-05-2022 Influenza, injectabl e, Madin Hurst Canine Kidney, preservative free, quadrivalent Errol Caceres MD Work Phone: [facility] 09-01-2021 influenza virus vaccine, unspecified formulation Lis Lufany [facility] 09-01-2021 influenza, injectabl e, quadrivalent, preservative free Errol Caceres MD Work Phone: [facility] 08-18-2020 influenza virus vaccine, unspecified formulation Lis Chase [facility] 08-18-2020 Influenza, injectabl e, Madin Kellen Canine Kidney, preservative free, quadrivalent Errol Caceres MD Work Phone: [facility] 08-12-2019 influenza virus vaccine, unspecified formulation Lis Chase [facility] 08-12-2019 Influenza, injectabl e, Madin Hurst Canine Kidney, preservative free, quadrivalent Errol Caceres MD Work Phone: [facility] 08-14-2018 influenza virus vaccine, unspecified formulation Lis Lufany [facility] 08-14-2018 Influenza, injectabl e, Madin Hurst Canine Kidney, preservative free, quadrivalent Errol Caceres MD Work Phone: [facility] 08-14-2018 pneumococcal polysaccharide vaccine, 23 valent Lis Lue [facility] 08-07-2017 influenza virus vaccine, unspecified formulation Lis Lue [facility] 08-07-2017 influenza, seasonal, injectable, preservative free Errol Caceres MD Work Phone: [facility] 08-15-2016 influenza virus vaccine, unspecified formulation Lis Lue [facility] 08-15-2016 influenza, seasonal, injectable, preservative free Errol Caceres MD Work Phone: [facility] 08-24-2015 influenza virus vaccine, unspecified formulation Lis Lue [facility] 08-24-2015 influenza, seasonal, injectable, preservative free Errol Caceres MD Work Phone: [facility] 10-04-2014 zoster vaccine, live Lis L ue [facility] 07-23-2014 influenza virus vaccine, unspecified formulation Lis Lue [facility] 07-23-2014 influenza, seasonal, injectable Errol Caceres MD Work Phone: [facility] 08-31-2013 influenza virus vaccine, unspecified formulation Lis Lue [facility] 08-31-2013 influenza, seasonal, injectable Errol Caceres MD Work Phone: [facility] 08-04-2012 influenza virus vaccine, unspecified formulation Lis Lue [facility] 08-04-2012 influenza, seasonal, injectable Errol Caceres MD Work Phone: [facility] 07-17-2011 influenza virus vaccine, unspecified formulation Lis Chase [facility] 07-17-2011 influenza, seasonal, injectable Errol Caceres MD Work Phone: [facility] NEGATED: Highlighted row has not occurred!06-26-2022 SARS-CoV-2 mRNA (tozinameran 5y-11y) vaccine Lis Chase [facility] NEGATED: Highlighted row has not occurred!06-06-2022 SARS-CoV-2 mRNA (tozinameran 5y-11y) vaccine Lis Chase [facility] Payers Date Payer Category Payer Private Health Insurance [facility] [id number] 2025 Private Health Insurance [id number] 2024 Self-pay [id number] 2024 Medicare (Managed Care) [facility] [id number] 2024 Unknown [id number] 1955 Unknown [id number] [id number]. 2.593 1955 Unknown [id number] 2.16.840.1.072220.3.579. 2.593 1955 Unknown [id number] 2.16.840.1.226657.3.579. 2.593 1955 Unknown [id number] 2.16.840.1.033876.3.579. 2.727 1955 Unknown [id number] 2.16.840.1.891736.3.579. 2.1286 1955 Unknown [id number] 2.16.840.1.511427.3.579. 2.1286 1955 Unknown [id number] 2.16.840.1.534229.3.579. 2.1286 1955 Unknown [id number] 2.16.840.1.705038.3.579. 2.1286 1955 Unknown [id number] 2.16.840.1.327365.3.579. 2.1286 1955 Unknown [id number] 2.16.840.1.607270.3.579. 2.1259 1955 Unknown [id number] 2.16.840.1.217946.3.579. 2.1259 Unknown [id number] Medicare Medicare [id number] Unknown Self Pay [id number] Unknown [id number] 2.16.840.1.762055.3.579. 2.531 Unknown [id number] 2.16.840.1.326438.3.579. 2.531 Unknown [id number] 2.16.840.1.895523.3.579. 2.531 Social History Date Type Detail Facility Start: 01-19-2022 End: 06-08-2025 Tobacco smoking status NHIS Ex-smoker (finding) [facility] Start: 1955 Sex Assigned At Female F [facility] Tobacco smoking status Never [facility] Start: 02-25-2024 Sex Assigned At Female [facility] History of tobacco use Current smoker [facility] History of tobacco use Cigarette Smoker [facility] Start: 02-25-2024 Tobacco use and exposure Smokeless tobacco non-user [facility] Start: 10-07-2024 Alcoholic beverage intake Ex-drinker (finding) [facility] Start: 02-25-2024 History of Social function [facility] Start: 1955 Sex assigned at Not on file [facility] Start: 12-24-2024 End: 04-01-2025 Sex Female (finding) [facility] Medical Equipment Procedure Code Equipment Code Equipment Origin al Text Equipment Identifier Dates Phacoemulsification of cataract with intraocular lens implantation Posterior-chamber intraocular lens, pseudophakic ()[id number] [facility] Start: 04-01-2025 1 each by Other route Daily Use as instructed Goals Date Patient Goal Desired Activity /State Functional Status Date Assessment Result Facility 06-26-2022 Functional Status N/A [facility] Jose Eduardo 06-06-2022 Functional Status N/A [facility] Fred 01-20-2022 Functional status Patient at Baseline [facility] Work Phone: Mental Status Date Assessment Result Facility 01-20-2022 Cognitive function Cognitive Sta tus Patient at Baseline [facility] Work Phone: Clinical Notes 01-19-2022 to 05-12-2025 Errol Caceres MD - 05/12/2025 9:40 AM EDT Note Date & Type Note Facility 05-12-2025 History of Presen t illness Narrative Diana Oliver is a 70 y.o. female No ref. provider found presents with chief complaint of Diabetes Mellitus and Follow-up HPI: IM 04/2025 follow up visit on 05/12/2025 A1c in the office 6.5, bg 136, on metformin 1000 mg bid. GFR 63 on 12/2024. IM 10/2024 follow up visit on 11/11/2024 A1c in the office 6.4, bg 108, on metformin 1000 mg bid. IM 04/2024 follow up visit on A1c in the office 6.4, bg 169, on metformin 1000 mg bid. lab C-peptide 2.8, TC 171, TG 78, LDL 105, VIT D 37, U micro <0.7 IM 10/2023 follow up visit on 11/20/2023 A1c in the office 6.5, bg 126, on metformin 1000 mg bid. was on hospital for COPD IM 04/2023 follow up visit on 05/14/2023 A1c in the office 6.8, bg 179, on metformin 1000 mg bid. IM 11/2022 follow up visit on 12/12/2022 A1c in the office 6.4, bg 101, on metformin 1000 mg bid, lab on 08/2023 TC 165, TG 110, LDL 92, VIT D 12, C PEPTIDE 5.8 IM 08/2022 follow up visit on 09/04/2022 A1c in the office 6.7, bg 189, on metformin 1000 mg bid, unable to afford ozepmic, off januvia also , no new lab HPI: 05/2022 New patient sent from Maggi Patel DO, for diabetes, uncontrolled. A1c in our office 7. Blood sugar 175. Used to be 8 she says as before. She is on 1000 metformin twice a day, decreased recently to 500 twice a day, 10 days ago, and she is on Januvia. She is morbidly obese, body mass index 59. Her boyfriend is at bedside. Denies also skin break in her feet but has numbness, tingling, neuropathy. SUBJECTIVE: MEDICATIONS: Current Outpatient Medications Medication Instructions albuterol HFA 90 mcg/act inhaler 2 puffs, Every 4 hours PRN amitriptyline (ELAVIL) 25 mg, Nightly apixaban (ELIQUIS) 5 mg, 2 times daily Calcium Carb-Cholecalciferol (Oyster Shell Calcium w/D) 500-5 MG-MCG tablet 1 tablet, 2 times daily with meals ergocalciferol (VITAMIN D2) 1.25 mg, Oral, Every 7 days furosemide (Lasix) 40 MG tablet Take by mouth glucose blood (OneTouch Verio) test strip 1 each, Daily lisinopril 2.5 mg, Daily magnesium oxide (MAG-OX) 400 mg, Daily metFORMIN (OSM) (FORTAMET) 1,000 mg, Oral, 2 times daily with meals, Do not crush, chew, or split. metoprolol succinate XL (Toprol-XL) 25 MG 24 hr tablet Take by mouth Do not crush or chew. simvastatin (Zocor) 5 MG tablet 1 tablet, Nightly spironolactone (Aldactone) 25 MG tablet 1 tablet, Daily ALLERGIES: Allergies Allergen Reactions Iodinated Contrast Media Hives Other Reaction(s): Not available Meperidine Hives Other Reaction(s): hives, Not available Past Medical History: Diagnosis Date Asthma (HCC) Atrial fibrillation (HCC) COPD (chronic obstructive pulmonary disease) (HCC) Diabetes mellitus (HCC) Dietary counseling and surveillance Emphysema of lung (HCC) Essential (primary) hypertension History of cervical cancer Hypertension Morbid obesity with BMI of 60.0-69.9, adult ([facility]) Obesity PAYTON (obstructive sleep apnea) Psoriasis Type 2 diabetes mellitus without complications ([facility]) Past Surgical History: Procedure Laterality Date BREAST BIOPSY COLONOSCOPY GANGLION CYST EXCISION HYSTERECTOMY 1985 TUBAL LIGATION REVIEW OF SYMPTOMS: 14 POINT OF SYSTEM REVIEWED AND NEGATIVE OBJECTIVE: Constitutional: Afebrile @ home; no weakness or night sweats SKIN: No change in skin color; no itching, rash or lesions; no hair loss; HEENT: No HAs or injury; no dizziness; No difficulty with vision; no eye pain, discharge or lesions; no hearing loss or difficulty; no nasal discharge, NECK: No pain, limitation of motion, lumps or swollen glands RESP: No cough, wheezing or difficulty breathing. No CP with breathing; CARDIO: No CP , SOB or fatigue, No edema, palpitations or dyspnea with exertion GI: No N/V/D or abd. pain; good appetite with no recent change. No heart burn, liver or gallbladder disease; no rectal bleeding or pain : No urinary pain , frequency or odor. MUSCULOSKELETAL: No muscle pain or cramps; no extremity weakness.No joint pain, stiffness, swelling or limitation of movement NEUROLOGY: No H/O seizures, stroke or fainting. No weakness, tremors. Hematology: No bleeding problems or excessive bruising ENDOCRINE: No increase in hunger, thirst or urination; admits compliance to medical management plan Feet: numbness tingling yes , ulcers or skin break no Lab Results Component Value Date HGBA1C 6.5 05/12/2025 HGBA1C 6.4 11/11/2024 Lab Results Component Value Date GLU 136 05/12/2025 GLU 133 (H) 01/12/2025 GLU 108 11/11/2024 Visit Vitals Pulse 65 Resp 16 Ht 5' 2 SpO2 90% BMI 62.19 kg/m Smoking Status Former BSA 2.6 m ASSESSMENT AND PLAN: Assessment/Plan Diagnoses and all orders for this visit: Type 2 diabetes mellitus with hyperglycemia, without long-term current use of insulin ([facility]) - POCT glucose manually resulted - POCT glycosylated hemoglobin (Hb A1C) docked device - Vitamin D 25 hydroxy Total; Future - Microalbumin / creatinine urine ratio; Future - Lipid panel; Future - Renal function panel; Future We will continue with metformin 1000 twice a day. Vitamin D deficiency Primary hypertension ([facility]) Encounter for dietary consultation Diet and exercise reviewed with the patient Class 3 severe obesity due to excess calories with serious comorbidity and body mass index (BMI) of 60.0 to 69.9 in adult ([facility]) Follow up in about 6 months (around 11/12/2025). documented in this encounter [facility] 03-16-2025 Evaluation note Diagnosis Onset Date Resolution Bronchitis acute March 16, 2025 8:42am Seasonal allergies acute March 162024 8:42am [facility] Work Phone: 1(259) 106-491505-20-2025 Evaluation note* Diagnosis Onset Date Resolution Status Admit Date Bronchitis acute March 16, 2025 8:42am Seasonal allergies acute March 162024 8:42am COPD (chronic obstructive pulmonary disease) acute June 08, 2025 8:35am Diabetes acute June 08, 8:35am High cholesterol acute May 282024 8:35am Hypertension acute June 08, 2025 8:35am Obstructive sleep apnea acute A ug2024 8:35am [facility] Work Phone: 1(493) 175-985403-18-2025 NoteXR CHEST 1 VW History: Shortness of breath Procedure: Chest AP portable upright Comparison: 02/07/2024 Findings: Hypoventilation with low lung volumes. The heart and lungs show no acute findings, and the mediastinum and salazar are grossly negative . No pneumothorax. Impression: Hypoventilation of the lung volumes. Otherwise, no acute pulmonary process. Finalized by Ramy Yoon MD on 01/12/2025 5:[address] [facility] 01-11-2025 [facility] - Patient Intake Form Diaan Oliver is a 69 y.o. year old female referred to us for anticoagulation management. Clinic received referral from Outpatient Clinic/ Provider. Previously managed by: N/A History of outpatient management: Patient prescribed Eliquis for diagnosis of AF but has been off of since September due to cost. At the new year, cost increased and became unaffordable on current insurance. Patient does have Rx coverage which may limit ability to qualify for patient assistance. Therapy Evaluation: Diana Oliver is prescribed apixaban 5 mg BID for nonvalvular atrial fibrillation. Goal INR: N/A - DOAC. The duration of therapy is for indefinite. Financial Evaluation: Yes Significant Drug Interactions: N/A No past surgical history on file. Family history (VTE, coagulopathy, etc.): No relevant family history has been documented for this patient. Family History Problem Relation Name Age of Onset Coronary artery disease Father Atrial fibrillation Sister Allergies as of 01/11/2025 - Reviewed 01/08/2025 Allergen Reaction Noted Dye 01/16/2018 Iodinated contrast media 09/10/2017 Meperidine Hives 09/10/2017 Baseline Labs: Ht Readings from Last 1 Encounters: 01/08/25 1.575 m (5' 2 ) Wt Readings from Last 1 Encounters: 01/08/25 127 kg (279 lb) [place] body weight: 50.1 kg (110 lb 7.2 oz) Adjusted ideal body weight: 80.7 kg (177 lb 13.9 oz) BMI Readings from Last 1 Encounters: 01/08/25 51.03 kg/m??? No results found for: CREATININE 49 mL/min = CrCl No results found for: HGB No results found for: PLT No results found for: ALT , AST , GGT , ALKPHOS , BILITOT Risk Scores: Diana Oliver has a [id number] score of 5 due to CHF HTN ages 65-75 DM female sex. She has a HASBLED score 1 due to ages 65 and older. VTE Risks: [] Prior VTE/CVA [x] >40 Y.O. [x] Obesity [] Immobile/Inactive [] Contraceptives/Hormones [] [] Family hx of VTE/Coagulopathy [] Recent surgery [] Malignancy [] Coagulopathy []Central venous catheter [] IBD or rheumatic disease [] Varicose veins/vascular disease Notes: LVM to discuss new referral & [facility] NotePatient was referred to the anticoagulation clinic to help with cost assistance and/or switching to warfarin. Will defer to their management. Avelina Boone, PharmD 01/15/25 [facility]03-14-2025 NotePharmD Cardiology Consult - New Consult 01/08/25 Referring Provider: John Harrison CNP Clinic: [facility] Diana Oliver is referred to clinic pharmacists for medication access. Electronic order received from patient's cardiology provider. Note from provider states history of PAF, ran out of Eliquis in September. Insurance changed and increased cost. Per insurance formulary, Eliquis and Xarelto are both Tier 3. May need to refer to [facility] for assistance with switching to warfarin if patient does not qualify for PAP. Avelina Boone, PharmD [place] [facility]25 NoteSUBJECTIVE Reason for Visit: Diana Oliver is a 69 y.o. year old female patient being seen for 1 year follow-up visit. HPI: Diana Oliver is a 69 yo F with PMH of Afib, HTN, COPD, and DM. 01/08/2025 office visit: The patient is seen for a one-year follow-up visit. She reports persistent dyspnea on exertion, which has remained unchanged over the past year and represents her baseline--experiencing shortness of breath after walking just a few steps. She has trace lower extremity edema but denies chest pain, lightheadedness, dizziness, or palpitations. She ran out of Eliquis in September due to cost concerns, and I have consulted the pharmacy to assist with access to the medication. She reports using her rescue inhaler (albuterol) approximately once per month. 12/06/2023 office visit (Dr. Grady): Summary: Patient was recently hospitalized for a COPD exacerbation and denies any cardiac issues, including chest pain, worsening shortness of breath, lower extremity edema, orthopnea, or paroxysmal nocturnal dyspnea. She also denies syncope, near-syncope, dizziness, or lightheadedness. Although a recent echocardiogram and stress test were ordered, she declined both due to claustrophobia. However, a prior echocardiogram from February 2023 showed a left ventricular ejection fraction (LVEF) at the lower limits of normal. Past Medical History: Diagnosis Date Atrial fibrillation (CMS/HCC) COPD (chronic obstructive pulmonary disease) (CMS/HCC) Diabetes mellitus (CMS/HCC) Hypertension Sleep apnea No past surgical history on file. Patient Active Problem List Diagnosis Paroxysmal atrial fibrillation (CMS/HCC) Essential hypertension Obstructive sleep apnea syndrome Chronic heart failure with preserved ejection fraction (CMS/HCC) Pulmonary HTN (CMS/HCC) Syncope and collapse Acute on chronic congestive heart failure (CMS/HCC) Asthma Cervical cancer (CMS/HCC) Chest pain with high risk for cardiac etiology Class 1 obesity due to excess calories in adult COPD (chronic obstructive pulmonary disease) (CMS/HCC) Diabetes (CMS/HCC) Dyspnea History of cervical cancer Hypomagnesemia Hypercarbia Localized edema Paroxysmal atrial flutter (CMS/HCC) Psoriasis Acute hypoxemic respiratory failure (CMS/HCC) Acute on chronic diastolic heart failure (CMS/HCC) Acute on chronic respiratory failure with hypercapnia (CMS/HCC) Dizziness Near syncope family history includes Atrial fibrillation in her sister; Coronary artery disease in her father. Social History Tobacco Use Smoking status: Former Types: Cigarettes Smokeless tobacco: Never Substance Use Topics Alcohol use: Not Currently OBJECTIVE Visit Vitals BP 135/69 (BP Location: Right wrist, Patient Position: Sitting) Pulse 62 Ht 1.575 m (5' 2 ) Wt 127 kg (279 lb) SpO2 95% BMI 51.03 kg/m??? Smoking Status Former BSA 2.36 m??? Physical Exam Constitutional: General Appearance: well-developed, appears stated age. Level of Distress: no acute distress. Neck: Jugular Veins: normal jugular venous pressure. Lungs: Auscultation: no rales or rhonchi and normal breath sounds. Cardiovascular: Rate And Rhythm: regular. Heart Sounds: normal S1 and s2; Systolic Murmur: not heard. Diastolic Murmur: not heard. Extremities: Trace lower extremity edema. Peripheral Pulses: Pulses: full and equal in all extremities except if noted. Abdomen: Inspection and Palpation: non distended or tender and soft. Musculoskeletal: Inspection: no joint tenderness or swelling. Neurologic: Gait: normal gait. Psychiatric: Mental Status: alert and normal affect. Skin: Inspection and Palpation: warm and dry. Allergies: Allergies Allergen Reactions Dye Other reaction(s): Unknown Iodinated Contrast Media Meperidine Hives Outpatient Medications: Current Outpatient Medications Medication Instructions albuterol 90 mcg/actuation inhaler 2 puffs, inhalation, Every 6 hours PRN amiodarone (PACERONE) 200 mg, oral, Every morning amitriptyline (Elavil) 50 mg tablet budesonide-formoteroL (Symbicort) 80-4.5 mcg/actuation inhaler 2 puffs, inhalation, Daily PRN calcium carbonate-vitamin D3 500 mg-5 mcg (200 unit) tablet 1 tablet, oral Eliquis 5 mg tablet TAKE ONE TABLET BY MOUTH EVERY MORNING AND TAKE ONE TABLET BY MOUTH EVERY NIGHT AT BEDTIME furosemide (LASIX) 40 mg, oral, Daily lisinopril 5 mg, oral, Daily metFORMIN (GLUCOPHAGE) 1,000 mg, Every 12 hours metoprolol succinate XL (TOPROL-XL) 50 mg, oral, Once Daily simvastatin (ZOCOR) 5 mg, oral, Nightly spironolactone (Aldactone) 25 mg tablet Daily RT umeclidinium-vilanteroL (Anoro Ellipta) 62.5-25 mcg/actuation blister with device 1 puff, inhalation, Daily RT Recent Labs: No visits with results within 6 Month(s) from this visit. Latest known visit with results is: Admission on 09/13/2022, Discharged on 09/13/2022 Component Date Value Ventricular Rate (more content not included)...[facility]02-27-2025 Evaluation note* Diagnosis Onset Date Resolution Status Admit Date UTI (urinary tract infection) acute December 24, 2024 8:43am [facility] Work Phone: 1(116) 365-743001-15-2025 History of Present illness Narrative* Errol Caceres MD - 11/11/2024 9:30 AM EST Diana Oliver is a 69 y.o. female Errol Caceres MD presents with chief complaint of Diabetes Mellitus and Follow-up HPI: IM 10/2024 follow up visit on 11/11/2024 A1c in the office 6.4, bg 108, on metformin 1000 mg bid. IM 04/2024 follow up visit on A1c in the office 6.4, bg 169, on metformin 1000 mg bid. lab C-peptide 2.8, TC 171, TG 78, LDL 105, VIT D 37, U micro <0.7 IM 10/2023 follow up visit on 11/20/2023 A1c in the office 6.5, bg 126, on metformin 1000 mg bid. was on hospital for COPD IM 04/2023 follow up visit on 05/14/2023 A1c in the office 6.8, bg 179, on metformin 1000 mg bid. IM 11/2022 follow up visit on 12/12/2022 A1c in the office 6.4, bg 101, on metformin 1000 mg bid, lab on 08/2023 TC 165, TG 110, LDL 92, VIT D 12, C PEPTIDE 5.8 IM 08/2022 follow up visit on 09/04/2022 A1c in the office 6.7, bg 189, on metformin 1000 mg bid, unable to afford ozepmic, off januvia also , no new lab HPI: 05/2022 New patient sent from Maggi Patel DO, for diabetes, uncontrolled. A1c in our office 7. Blood sugar 175. Used to be 8 she says as before. She is on 1000 metformin twice a day, decreased recently to 500 twice a day, 10 days ago, and she is on Januvia. She is morbidly obese, body mass index 59. Her boyfriend is at bedside. Denies also skin break in her feet but has numbness, tingling, neuropathy. SUBJECTIVE: MEDICATIONS: Current Outpatient Medications Medication Instructions albuterol HFA 90 mcg/act inhaler 2 puffs, Every 4 hours PRN amitriptyline (ELAVIL) 25 mg, Nightly apixaban (ELIQUIS) 5 mg, 2 times daily Calcium Carb-Cholecalciferol (Oyster Shell Calcium w/D) 500-5 MG-MCG tablet 1 tablet, 2 times dailywith meals ergocalciferol (VITAMIN D2) 1.25 mg, Oral, Weekly furosemide (Lasix) 40 MG tablet Take by mouth glucose blood (OneTouch Verio) test strip 1 each, Daily lisinopril 2.5 mg, Daily magnesium oxide (MAG-OX) 400 mg, Daily metFORMIN (OSM) (FORTAMET) 1,000 mg, 2 times daily with meals metoprolol succinate XL (Toprol-XL) 25 MG 24 hr tablet Take by mouth Do not crush or chew. simvastatin (Zocor) 5 MG tablet 1 tablet, Nightly spironolactone (Aldactone) 25 MG tablet 1 tablet, Daily ALLERGIES: Allergies Allergen Reactions Iodinated Contrast Media Hives Other Reaction(s): Not available Meperidine Hives Other Reaction(s): hives, Not available Past Medical History: Diagnosis Date Asthma ([facility]) Atrial fibrillation ([facility]) COPD (chronic obstructive pulmonary disease) ([facility]) Diabetes mellitus ([facility]) Dietary counseling and surveillance Emphysema of lung ([facility]) Essential (primary) hypertension ([facility]) History of cervical cancer Hypertension ([facility]) Morbid obesity with BMI of 60.0-69.9, adult ([facility]) Obesity PAYTON (obstructive sleep apnea) Psoriasis ([facility]) Type 2 diabetes mellitus without complications ([facility]) Past Surgical History: Procedure Laterality Date BREAST BIOPSY COLONOSCOPY GANGLION CYST EXCISION HYSTERECTOMY 1985 TUBAL LIGATION REVIEW OF SYMPTOMS: 14 POINT OF SYSTEM REVIEWED AND NEGATIVE OBJECTIVE: Constitutional: Afebrile @ home; no weakness or night sweats SKIN: No change in skin color; no itching, rash or lesions; no hair loss; HEENT: No HAs or injury; no dizziness; No difficulty with vision; no eye pain, discharge or lesions; no hearing loss or difficulty; no nasal discharge, NECK: No pain, limitation of motion, lumps or swollen glands RESP: No cough, wheezing or difficulty breathing. No CP with breathing; CARDIO: No CP , SOB or fatigue, No edema, palpitations or dyspnea with exertion GI: No N/V/D or abd. pain; good appetite with no recent change. No heart burn, liver or gallbladderdisease; no rectal bleeding or pain : No urinary pain , frequency or odor. MUSCULOSKELETAL: No muscle pain or cramps; no extremity weakness.No joint pain, stiffness, swellingor limitation of movement NEUROLOGY: No H/O seizures, stroke or fainting. No weakness, tremors. Hematology: No bleeding problems or excessive bruising ENDOCRINE: No increase in hunger, thirst or urination; admits compliance to medical management plan Feet: numbness tingling yes , ulcers or skin break no Lab Results Component Value Date HGBA1C 6.4 11/11/2024 Lab Results Component Value Date GLU 108 11/11/2024 GLU 107 (H) 05/05/2024 GLU 152 (H) 02/07/2024 Visit Vitals BP 110/60 Pulse 63 Resp 16 Ht 5' 2 Wt 340 lb BMI 62.19 kg/m Smoking Status Former BSA 2.6 m ASSESSMENT AND PLAN: Assessment/Plan Diagnoses and all orders for this visit: Type 2 diabetes mellitus with hyperglycemia, without long-term current use of insulin ([facility]) - POCT glucose manually resulted - POCT glycosylated hemoglobin (Hb A1C) docked device - Vitamin D 25 hydroxy Total; Future - Microalbumin / creatinine urine ratio; Future - Lipid panel; Future - Renal function panel; Future We will continue with metformin 1000 twice a day. Vitamin D deficiency Primary hypertension ([facility]) Encounter for dietary consultation Diet and exercise reviewed with the patient Class 3 severe obesity due to excess calories with serious comorbidity and body mass index (BMI) of60.0 to 69.9 in adult ([facility]) Follow up in about 6 months (around 05/11/2025). [id number] Discharge instructions Patient Education 06/26/2022 09:13:36 Hematuria, Adult Hematuria, Adult Hematuria is blood in the urine. Blood may be visible in the urine, or it may be identified with a test. This condition can be caused by infections of the bladder, urethra, kidney, or prostate. Otherpossible causes include: Kidney stones. Cancer of the [...] blood in your urine, even if it ispainless or the blood stops without treatment. Blood in the urine, when it happens and then stops and then happens again, can be a symptom of a very serious condition, including cancer. There is no pain in the initial stages of many urinary cancers. Follow these instructions at home: Medicines Take nqvs-ebj-kijavpf and prescription medicines only as told by your health care provider. If you were prescribed an antibiotic medicine, take it as told by your health care provider. Do notstop taking the antibiotic even if you start [...] about any blood in your urine, even ifit is painless or the blood stops without treatment. Take ljta-vmx-dyhukeo and prescription medicines only as told by your health care provider. Drink enough fluid to keep your urine clear or pale yellow. This information is not intended to replace advice given to you by your health care provider. Make sure you discuss any questions you have with your health care provider. Document Released: 10/14/2006 Document Revised: 03/09/2020 Document Reviewed: 11/16/2017 [employer] Patient Education 2019 [employer] Follow Up Care 06/06/2022 10:15:36 With:Salvatore RODRIGUEZ, JARRETT Tejada, URO Address: When:Within 1 Month(s) [facility] 08-10-2022 Hospital Discharge instructions Patient Education 06/06/2022 09:51:04 Hematuria, Adult Hematuria, Adult Hematuria is blood in the urine. Blood may be visible in the urine, or it may be identified with a test. This condition can be caused by infections of the bladder, urethra, kidney, or prostate. Otherpossible causes include: Kidney stones. Cancer of the [...] blood in your urine, even if it ispainless or the blood stops without treatment. Blood in the urine, when it happens and then stops and then happens again, can be a symptom of a very serious condition, including cancer. There is no pain in the initial stages of many urinary cancers. Follow these instructions at home: Medicines Take nbmq-jgb-xqxpeec and prescription medicines only as told by your health care provider. If you were prescribed an antibiotic medicine, take it as told by your health care provider. Do notstop taking the antibiotic even if you start [...] about any blood in your urine, even ifit is painless or the blood stops without treatment. Take xlns-rqy-imoiyrt and prescription medicines only as told by your health care provider. Drink enough fluid to keep your urine clear or pale yellow. This information is not intended to replace advice given to you by your health care provider. Make sure you discuss any questions you have with your health care provider. Document Released: 10/14/2006 Document Revised: 03/09/2020 Document Reviewed: 11/16/2017 [employer] Patient Education 2020 [employer]. Follow Up Care 06/05/2022 13:21:40 With:Salvatore RODRIGUEZ, JARRETT Tejada, URO Address: When: Unknown [facility] 03-25-2022 Progress note Author Rafat Vences [facility] January 19, 2022 2:13pm Note Date/Time January 19, 2022 2:1 0pm [facility] [address] [place] [address] Hospitalist Progress Note Signed Patient: Diana Oliver MR#: [id number] : 1955 Acct:[id number] Age/Sex: 66 / F Adm Date: 2 Loc: Room: [address] [place] [address] Type : ADM IN Attending Dr: Rafat [...] Dose Route Start Last Admin Trade Name Rolandoq PRN Reason Stop Dose Admin Acetaminophen 650 [...] signed by Rafat Vences MD> 01/19/22 1413 [facility] Work Phone: 1(340) 763-650203-25-2022 History and physical note Author Zane Zuniga [facility] January 19, 2022 5:13am Note Date/Time January 19, 2022 4:2 8am [facility] [address] [place] [address] Hospitalist H&P Signed Patient: Diana Oliver MR#: [id number] : 1955 Acct:[id number] Age/Sex: 66 / F Adm Date: 2 Loc: Room: [address] [place] [address] Type : ADM IN Attending Dr: Jay Loera DO Copies to: NON STAFF MD Jay Agosto, ~ HPI DATE OF EXAMINATION: 01/19/22 CHIEF COMPLAINT: [...] negative unless noted below or in HPI [facility] Vaccinated for COVID-19?: No Medical History (Updated [...] claustrophobia Documented By: Zane Ram MD 2 3 Signed By: <Electronically signed by Zane Ram MD> 01/19/22 0513 [facility] Work Phone: Discharge summary Author Rafat Vences [facility] January 20, 2022 2:35pm Note Date/Time January 20, 2022 2:3 5pm [facility] [address] [place] [address] Discharge Summary Signed Patient: Diana Oliver MR#: [id number] : 1955 Acct:[id number] Age/Sex: 66 / F Adm Date: 2 Loc: Room: [address] [place] [address]: Rafat Vences MD Copies to: NON STAFF Rafat Vences MD~ Providers Date of Discharge: 01/20/22 Discharging Provider: Safwan Vangie Primary Care Provider: NON STAFF Consults: 01/19/22 [...] 0 Documented By: Rafat Vences MD 01/20/22 1429 Signed By: <Electronically signed by Rafat Vences MD> 01/20/22 1435 [facility] Work Phone: Evaluation + Plan note Future Appointments Appointment Date:06/26/2022 09:00:00 AM Scheduled Provider:Lis Chase MD Location:[facility] Appointment Type:URO Procedure 15 min Diagnostic Tests Pending * Urine Cytology ([facility]) 06/06/22 [facility] evaluation + Plan note Future Appointments Appointment Date:07/25/2022 09:30:00 AM Scheduled Provider:Lis Chase MD Location:[facility] Appointment Type:URO Office Visit [facility] evaluation note* Diagnosis Onset Date Resolution Status Acute hypoxemic respiratory failure acute Acute on chronic diastolic heart failure acute Morbid obesity with BMI of 60.0-69.9, adult acute [facility] Work Phone: Evaluation note* Diagnosis Type 2 diabetes mellitus with hyperglycemia, without long-term current use of insulin ([facility])- Primary Vitamin D deficiency Primary hypertension ([facility]) Unspecified essential hypertension Encounter for dietary consultation Class 3 severe obesity due to excess calories with serious comorbidity and body mass index (BMI) of 60.0 to 69.9 in adult ([facility]) [facility] Diagnosis Onset Date Resolution Status Admit Date UTI (urinary tract infection) acute December 24, 2024 8:43am [facility] Work Phone: Evaluation note* Diagnosis Type 2 diabetes mellitus with hyperglycemia, without long-term current use of insulin (HCC)- Primary Vitamin D deficiency Primary hypertension Unspecified essential hypertension Encounter for dietary consultation Class 3 severe obesity due to excess calories with serious comorbidity and body mass index (BMI) of 60.0 to 69.9 in adult ([facility]) documented [facility] Narrative No data available for this section [facility] Hospital Discharge instructionsAmbulatory Orders* DME Home Medical Equipment Time Frame: 1 Day, Location: Determined By Patient [facility] Work Phone: Hospital Discharge instructions Additional Instructions POST CATARACT SURGERY INSTRUCTIONS EYEDROPS First day (24 hours) Ocuflox or Vigamox and Pred Forte-use 1 drop to operative eye every hour while awake. Artificial tears- May use 1 drop 4 times a day as needed in the surgical eye. Next day Ocuflox or Vigamox-continue to use the drop in the surgery eye 4 times per day for 1 week. Pred Forte-start using the drop in the surgery eye 4 times per day for 1 week, then taper to 3 times per day for 1 week, 2 times a day for 1 week, then once a day for 1 week. Artificial tears- May use 1 drop 4 times a day as needed in the surgical eye. -Wait 5 minutes or more between using the different medications. -Please bring all your eyedrops to every follow-up visit. BATHING: You may shower, bathe, or wash her hair normally after the surgery. SUNGLASSES: Please bring sunglasses for your ride home. Some people are light- sensitive for a few weeks following surgery. Wear sunglasses for comfort. Sunglasses are not required. DUE TO ANESTHESIA: DO NOT make complex decision/sign legal documents for 24 hours after your procedure. No smoking or drinking alcohol for 24 hours. EYE RUBBING: DO NOT RUB YOUR EYE for at least 4 weeks. BLUR: Blurriness is common for several days to weeks. IRRITATION: Mild irritation or watering eye is common. MEDICATION: Continue/resume normal medications, including eye drops. Patient educated on importance of managing medication information: -Give list of medications to primary care physician. -Update information when medications are discontinued, doses are changed or new medications added. -Carry medication list with you at all times in case of emergency. Call if questions/problems occur: If you experience 1. Persistent pain/vomiting 2. Sudden worsening of your eyesight. Please call your hook up during normal business hours. If after business hours call Dr. Douglas Marie at his cell [phone] or his office [phone].[facility] Work Phone: Hospital Discharge instructionsAmbulatory Orders* Referral to Pulmonology Time Frame: 06/08/25, Location: None Selected [facility] Work Phone: Progress note No data available for this section [facility] Chief Complaint and Reason for Visit Chief Complaint Admit Date URI March 16, 2025 8:42a m Cataract March 25, 2025 1:05p m Cataract April 01, 2025 6:11a m Reason for Visit Admit Date Bronchitis March 16, 2025 8:42a m Seasonal allergies March 16, 2025 8:42a m Chief Complaint COPD Reason for Visit Acute hypoxemic resp iratory failure Acute on chronic diastolic heart failure Morbid obesity with BMI of 60.0-69.9, adult Chief Complaint Admit Date on license of [facility] care December 24, 2024 8:43am Reason for Visit Admit Date UTI (urinary tract infection) November 292024 8:43am Chief Complaint Admit Date URI March 16, 2025 8:42a m Cataract March 25, 2025 1:05p m Chief Complaint Admit Date URI March 16, 2025 8:42a m Cataract March 25, 2025 1:05p m Cataract April 01, 2025 6:11a m 6 month f/u June 08, 2025 8: 35am Reason for Visit Admit Date Bronchitis March 16, 2025 8:42a m Seasonal allergies March 16, 2025 8:42a m COPD (chronic obstructive pulmonary dise ase) June 08, 2025 8:35am Diabetes June 08, 2025 8: 35am High cholesterol June 08, 2025 8: 35am Hypertension June 08, 2025 8: 35am Obstructive sleep apnea June 08 8:35am Advance Directives Advance Directive Response Recorded Date/ Time Advance Directives No January 18 8:27pm Advance Directive Response Recorded Date/ Time Advance Directives No January 18 7:27pm Summary Purpose Family History Relationship Condition Age at Onset Recorded Date/T jose alberto father Pulmonary emphysema Unknown mother Diabetes mellitus Unknown sister Atrial fibrillation Unknown Presence of cardiac pacemaker Unknown Additional Source Comments Care Teams (unrecognized sec tion and content) Team Status: Inactive Member Role Status Dates NON STAFF Primary Care Provider Active Jay Loera DO Admit Provider Active Rafat Vences MD Attending Provider Active Team Status: Active Member Role Status Dates NON STAFF Primary Care Provider Active Director Of Preclinical Research Relationship Specialty Start Date End Date Maggi Patel DO [address] [place] [address] PCP - General Family Medicine 02/25/24 Director Of Preclinical Research Relationship Specialty Start Date End Date Maggi Patel, [address] [place] [address] PCP - General Family Medicine 02/25/24 Team Status: Active Member Role Status Dates Nikky Hong APRN TWIST TESTER-C Primary Care Provider Active Team Status: Inactive Member Role Status Dates OLENA RankinC Primary Care Provider, Attending Provider Active Start: December 24, 2024 End: December 24, 2024 Team Status: Inactive Member Role Status Dates OLENA Rankin Attending Provider Act honey Start: December 24, 2024 End: December 24, 2024 Team Status: Inactive Member Role Status Dates Nikky Hong APRN TWIST TESTER-C Primary Care Provider, Attending Provider Active Start: March 16, 2025 End: March 16, 2025 Team Status: Inactive Member Role Status Dates Nikky Hong APRN TWIST TESTER-C Primary Care Provider Active Start: March 25, 2025 End: March 25, 2025 Douglas Marie MD Attending Provider Active Start: March 25, 2025 End: March 25, 2025 Team Status: Inactive Member Role Status Dates Nikky Hong APRN TWIST TESTER-C Primary Care Provider Active Start: April 01, 2025 End: April 01, 2025 Douglas Marie MD Attending Provider Active Start: April 01, 2025 End: April 01, 2025 Director Of Preclinical Research Relationship Specialty Start Date End Date Maggi Patel DO [address] [place] [address] PCP - General Family Medicine 02/25/24 Director Of Preclinical Research Relationship Specialty Start Date End Date Maggi Patel DO [address] [place] [address] PCP - General Family Medicine 02/25/24 Team Status: Inactive Member Role Status Dates Nikky Hong APRN TWIST TESTER-C Primary Care Provider Active Start: March 16, 2025 End: March 16, 2025 Nikky Hong APRN TWIST TESTER-C Attending Provider Act honey Start: March 16, 2025 End: March 16, 2025 Team Status: Inactive Member Role Status Dates Nikky Hong APRN TWIST TESTER-C Primary Care Provider Active Start: June 08, 2025 End: June 08, 2025 Nikky Hong APRN TWIST TESTER-C Attending Provider Act honey Start: June 08, 2025 End: June 08, 2025 INFORMATION SOURCE (unrecogn ized section and content) DATE CREATED AUTHOR 08/26/2022 [facility] DATE CREATED AUTHOR AUTHOR'S ORGANIZ ATION 12/31/2024 [facility] DATE CREATED AUTHOR AUTHOR'S ORGANIZ ATION 01/15/2025 [facility] DATE CREATED AUTHOR AUTHOR'S ORGANIZ ATION 01/16/2025 [facility] DATE CREATED AUTHOR AUTHOR'S ORGANIZ ATION 04/18/2025 [facility] DATE CREATED AUTHOR AUTHOR'S ORGANIZ ATION 05/16/2025 [facility] EPIC Reason for Visit (unrecogniz ed section and content) Reason Comments Diabetes Mellitus Follow-up Goals (unrecognized section and content) Goals may be documented in a n alternate section FOR RECORDS PERTAINING TO PATIENTS WHO ARE [...] BE BASED ON THE PRIMARY CLINICAL RECORDS. [employer] provides no warranty or guarantee of the accuracy or completeness of information in this document.
[2025-06-14 09:40] LABS: Hematocrit 40.0 % (36.0-48.0); Hemoglobin 12.4 g/dL (12.0-16.0); Immature Granulocytes Abs Auto 0.02 10^3/uL (0.00-0.03); Immature Granulocytes Pct Auto 0.4 % (0.0-0.5); Lymphocytes Absolute Auto 1.6 10^3/uL (1.2-3.8); Mean Corpuscular HGB Conc 31.0 g/dL (29.9-35.2); Mean Corpuscular Hemoglobin 27.8 pg (26.7-34.0); Mean Corpuscular Volume 89.7 fL (81.0-99.0); Platelet Count 202 10^3/uL (150-450); Red Blood Count 4.46 10^6/uL (4.20-5.40); White Blood Count 5.7 10^3/uL (4.0-11.0)
[2025-06-14 10:12] LABS: Alanine Aminotransferase 30 U/L (14-59); Albumin Globulin Ratio 1.0; Albumin Level 3.9 g/dL (3.4-5.0); Alkaline Phosphatase 51 U/L (46-116); Anion Gap 11.5; Aspartate Amino Transferase 28 U/L (15-37); Blood Urea Nitrogen 17.0 mg/dL (7.0-18.0); Calcium 9.1 mg/dL (8.5-10.1); Carbon Dioxide 30.5 mmol/L (21.0-32.0); Chloride 101 mmol/L (98-107); Cholesterol 132 mg/dL (<=200); Estimated GFR (African America >60 (>=60 mL/min/1.73m^2); Estimated GFR (Non-African Ame >60 (>=60 mL/min/1.73m^2); Globulin 3.8 g/dL; Glucose 99 mg/dL (74-106); HDL Cholesterol 63 mg/dL (40-60); Potassium 5.0 mmol/L (3.5-5.1); Sodium 138 mmol/L (136-145); Total Protein 7.7 g/dL (6.4-8.2); Triglycerides 51 mg/dL (<=150); VLDL CHOLESTEROL 10.2 mg/dL
== END 2025-06-14 09:09 | disposition home or self-care (01) ==
LOC: LAB 09:12
PROVIDERS: PCP Nurse Practitioner Family; Visit Provider Nurse Practitioner Family
DX: E78.00 Pure hypercholesterolemia, unspecified (principal); I10 Essential (primary) hypertension; E11.9 Type 2 diabetes mellitus without complications
CPT/HCPCS: 36415; 80053; 80061; 82043; 82570; 85025

== ENCOUNTER 2025-07-15 09:44 | Outpatient (RCR) | payer MEDICARE, SELFPAY | END 2025-07-27 15:29 | disposition home or self-care (01) | LOC: MM 09:44 | PROVIDERS: PCP Nurse Practitioner Family; Visit Provider Internal Medicine | DX: Z51.81 Encounter for therapeutic drug level monitoring (principal); Z79.01 Long term (current) use of anticoagulants; I48.0 Paroxysmal atrial fibrillation | CPT/HCPCS: 85610; G0463 ==

== ENCOUNTER 2025-07-28 04:18 | Outpatient (RCR) | payer MEDICARE, SELFPAY | END 2025-08-27 23:59 | disposition home or self-care (01) | LOC: MM 04:18 | PROVIDERS: PCP Nurse Practitioner Family; Visit Provider Internal Medicine | DX: Z51.81 Encounter for therapeutic drug level monitoring (principal); Z79.01 Long term (current) use of anticoagulants; I48.0 Paroxysmal atrial fibrillation | CPT/HCPCS: 85610; G0463 ==

== ENCOUNTER 2025-08-28 | Outpatient (RCR) | payer MEDICARE, SELFPAY | END 2025-09-26 23:59 | disposition home or self-care (01) | LOC: MM | PROVIDERS: PCP Nurse Practitioner Family; Visit Provider Internal Medicine | DX: Z51.81 Encounter for therapeutic drug level monitoring (principal); Z79.01 Long term (current) use of anticoagulants; I48.0 Paroxysmal atrial fibrillation | CPT/HCPCS: 85610; G0463 ==

== ENCOUNTER 2025-09-27 10:30 | Outpatient (RCR) | payer MEDICARE, SELFPAY | END 2025-10-27 12:42 | disposition home or self-care (01) | LOC: MM 10:30 | PROVIDERS: PCP Nurse Practitioner Family; Visit Provider Internal Medicine | DX: Z51.81 Encounter for therapeutic drug level monitoring (principal); Z79.01 Long term (current) use of anticoagulants; I48.0 Paroxysmal atrial fibrillation | CPT/HCPCS: 85610; G0463 ==